=== PATIENT | female | born 1950 | race Caucasian/White ===

== ENCOUNTER 2020-04-07 08:46 | Outpatient (CLI) | payer MEDICARE, OTHER, SELFPAY ==
[2020-04-07 12:07] LABS: Basophils # 0.1 10^3/uL (0.0-0.1); Basophils % 0.4 %; Eosinophils # 0.2 10^3/uL (0.0-0.8); Eosinophils % 1.7 %; Hematocrit 36.9 % (37.0-47.0); Hemoglobin 11.3 g/dL (11.5-15.3); Lymphocytes % 6.9 %; Mean Corpuscular HGB Conc 30.6 g/dL (30.0-36.0); Mean Corpuscular Volume 94.9 fL (81-99); Mean Platelet Volume 11.2 fL (7.4-10.4); Monocytes # 0.7 10^3/uL (0.2-0.9); Monocytes % 4.9 %; Neutrophils # 11.81 10^3/uL (1.8-7.7); Neutrophils % 85.4 %; Nucleated Red Blood Cells % 0 %; Platelet Count 239 10^3/cmm (130-400); Red Blood Count 3.89 10^6/uL (4.1-5.3); Red Cell Distribution Width 14.8 % (12.1-15.1); White Blood Count 13.8 10^3/uL (4.0-10.0)
[2020-04-07 12:39] LABS: 25 Hydroxy Vitamin D 85 ng/mL (30-100); Alanine Aminotransferase 17 U/L (0-33); Albumin Level 3.9 g/dL (3.5-5.2); Alkaline Phosphatase 105 IU/L (35-105); Anion Gap 13.1 (5-19); Aspartate Amino Transferase 19 U/L (0-32); Blood Urea Nitrogen 28 mg/dL (8-23); C Reactive Protein 10.1 mg/L (0.0-4.9); Calcium 9.1 mg/dL (8.5-10.5); Carbon Dioxide 34 mmol/L (22-29); Chloride 97 mmol/L (98-107); Globulin 2.5 g/dL (1.3-4.6); Glomerular Filtration Rate 55.1 mL/min (90-130); Glucose 101 mg/dL (65-115); Osmolality Calculated 296 mOsm/kg (285-295); Potassium 4.1 mmol/L (3.5-5.1); Sodium 140 mmol/L (136-145); Thyroid Stimulating Hormone 1.76 uIU/mL (0.27-4.20); Total Bilirubin 0.4 mg/dL (0.15-1.2); Total Protein 6.4 g/dL (6.6-8.7); Uric Acid 11.5 mg/dL (2.4-5.7)
[2020-04-07 13:11] LABS: Cancer Antigen 19 9 24.53 U/mL (0-35)
[2020-04-07 13:29] LABS: Carcinoembryonic Antigen 4.8 ng/mL (0.0-4.7)
[2020-04-07 13:41] LABS: Immunoglobulin IGA 408 mg/dL (70-400); Immunoglobulin IGG 524 mg/dL (700-1600); Immunoglobulin IGM 74 mg/dL (40-230)
--- NOTE | 2020-04-07 16:38 | ONC CON_ITS ---
Dr. Mortensen New Patient Note Patient: Nanda Roe Unit #: [id number]: 1950 Dicatated By: Iker Mortensen M.D.Date of Visit: Apr 07, 2020 Onc MED New Patient/Consult Referring Physician: Judy Riley Chief Complaint: Cystic pancreatic lesions. 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 She has multiple medical illnesses including hypertension, dyslipidemia, coronary artery disease, systemic lupus erythematosus, a history of sarcoidosis, and interstitial lung disease. 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 She also has osteoporosis with vertebral compression fractures and she has degenerative arthritis. She moved to this area from [place] in January 2020. She had previously been followed for mild, chronic leukocytosis and mild anemia. The leukocytosis was presumed reactive. During the follow-up of her interstitial lung disease, she also had been noted on CT scan to have cystic lesions in the pancreas. Her CT abdomen/pelvis from July 2017 reported multiple pancreatic simple cysts, numbering at least 10, which had increased in size compared to her previous CT from March 2015. The largest measured 1.4 cm. MRI of the abdomen on 05/13/2018 showed numerous cysts throughout the pancreas, some containing thin septations and many of which appear to communicate with a dilated branch pancreatic duct. The largest were in the pancreatic tail measuring 2.2 x 2.0 cm, 1.8 x 1.7 cm, and 2.1 x 1.7 cm. Overall the appearance was consistent with extensive sidebranch intraductal papillary mucinous tumor. These had shown mild enlargement compared to the July 2017 CT. She was seen by frameman and she was recommended to have ERCP, but she was deemed to be medically unfit for the procedure. Her repeat MRI of the abdomen on 10/28/2019 reported nonsignificant changes in the cystic pancreatic lesions. The largest lesion at that point measured 3.2 x 2.1 cm and it was noted to have the appearance of a benign serous cystadenoma. She had a hematology/oncology follow-up visit on 11/01/2019. In addition to the cystic pancreatic lesions and the chronic leukocytosis, she was being followed for possible M spike reported on protein electrophoresis in January 2019. Her evaluation was unrevealing, and she was recommended to continue yearly follow-up for the pancreatic lesions. She has limited activity, in part due to her back issues and also to degenerative disease in her right hip. She is able to do some light work at home. Her ECOG score is 1. She has good appetite. She has gained weight. She does not have fever, night sweats, or hot flashes. Her breathing has been pretty good on oxygen. She does use BiPAP at night. She does not complain of cough. She does have some chest pain, which she feels is musculoskeletal in origin. She has no GI or complaints. She has fairly generalized joint pain, but particularly in her hands and in her right hip. She does not complain of headache or dizziness. She sometimes has numbness/tingling in her hands. Past Medical History: Ms. Roe's medical history consists of anemia, chronic leukocytosis, coronary artery disease (Treated), degenerative arthritis, diastolic dysfunction (Treated), dyslipidemia, hypertension, hypoxia (Treated), interstitial lung disease, obstructive sleep apnea, osteoporosis (Treated), sarcoidosis (Treated), shrinking lung syndrome, and systemic lupus erythematosus in 2000 (Treated). Past Surgical History: Ms. Roe's surgical/procedural history consists of bilateral cataract excisions with lens implants, coronary angioplasty/stent placement in 2013 and in October 2018, left total hip arthroplasty, shunt procedure on the left eye in 2015, cholecystectomy in 2014, hysterectomy with unilateral oophorectomy in 1987, and tonsillectomy in 1969. Medications: Aspirin 81 (81 mg) Tablet, chewable Oral daily, Brilinta (90 mg) Tablet Oral daily, Cholecalciferol 1 (29486 Units) Tablet Oral, Colchicine (0.6 mg) Capsule Oral daily, Dorzolamide HCl 1 (2 %) Solution Ophthalmic daily, Furosemide (20 mg) Tablet Oral b.i.d., Klor-Con (20 meq) Pack Oral daily, Metoprolol Tartrate (12.5 mg) Tablet Oral b.i.d., predniSONE (7.5 mg) Tablet Oral daily, Repatha 1 (140 mg/mL) Subcutaneous q 2 weeks Allergies: amLODIPine-Atorvastatin, Avalide, azaTHIOprine, Bystolic, Ciprofloxacin HCl, Clindamycin HCl, cloNIDine HCl, Clopidogrel Bisulfate, Diovan, Iodine and Iodine containing products, Lisinopril, Methotrexate, oxyCODONE HCl, Penicillin V Potassium, Penicillins, Plavix, Quinolones, and Sulfa Antibiotics. Social History: Ms. Roe is and she is retired. She smoked up to 1 pack of cigarettes daily for less than 20 years. She quit smoking at age 36. She does not drink alcohol. Family History: Father with heart disease at age 88. Mother of stroke at age 81. 1 sister also with heart disease. Two other sisters are in good health. Review Of Symptoms: Constitutional - She has generally been feeling very good. Her energy is good. She is able to do light house work. She has activity restrictions due to significant right sided hip pain. She uses a wheelchair. Her appetite is good. She has gained weight. No fever, night sweats, or hot flashes. ECOG score is 1, Eyes - No change in vision, ENMT - No hearing loss or tinnitus. She has a seasonal allergies. No mouth sores. No sore throat or difficulty swallowing, Hematologic/Lymphatic - She has easy bruising, Respiratory - She gets shortness of breath with activity. She uses a BIPAP at night and wears oxygen via nasal cannula during the day. No cough. No pleuritic pain or hemoptysis, Cardiovascular - No angina pain. No palpitations, Gastrointestinal - No nausea or vomiting. No heartburn or acid reflux. No diarrhea or constipation. No blood in the stool or black stools, Genitourinary (F) - No dysuria or hematuria. No urinary frequency. No urgency or incontinence, Musculoskeletal - She has significant osteoporosis, Integumentary - No skin eruption, Neurologic - No headache or dizziness. She has occasional numbness and tingling in her hands. No other focal neurologic symptoms, Psychiatric - No anxiety or depression. No insomnia. Vital Signs: Performed on Apr 07, 2020 10:14: 2, 4, 0.00 (LOW), sq.m, 100 %, 70 /min, 20 /min, 130/70 mm(hg), 98 F (LOW), and 145.4 lbs (HIGH). Physical Examination: Constitutional - She appears chronically ill, Eyes - Sclerae nonicteric. Conjunctivae clear, ENMT - No lesions noted in the oral cavity, Neck - No mass or thyromegaly, Hematologic/Lymphatic - No cervical, clavicular, or axillary adenopathy, Respiratory - Lungs are clear with diminished air movement bilaterally, Cardiovascular - Heart rhythm is regular. There is no murmur, gallop, or rub noted, Abdomen - Soft and non-tender. Liver and spleen are not enlarged. There is no abdominal mass or ascites noted and there is no inguinal adenopathy, Back/Spine - No spine or CVA tenderness noted, Extremities - Mild edema. Dorsalis pedis pulses are palpable bilaterally. There are changes in both hands consistent with inflammatory type arthritis, including ulnar deviation, Integumentary - No rashes. No suspicious skin lesions noted, Neurologic - No focal neurologic deficits noted. Problem List: 1. Patient with multiple cystic lesions in the pancreas. By MRI these are suspected intraductal papillary mucinous neoplasms. These have shown gradual enlargement over a period of at least several years. She does not appear to be symptomatic with it. 2. She had reported M spike on protein electrophoresis in January 2019. Her follow-up evaluation thus far has been unrevealing. 3. Mild, chronic leukocytosis, presumed reactive. 4. Mild anemia, most likely chronic disease type. 5. Hypertension. 6. Dyslipidemia. 7. Coronary artery disease with previous angioplasty/stent placement. 8. Systemic lupus erythematosus. 9. History of sarcoidosis. 10. Interstitial lung disease, oxygen dependent. 11. She has reported shrinking lung syndrome. 12. Obstructive sleep apnea. 13. Osteoporosis with vertebral compression fractures, most likely due to chronic steroid therapy. 14. Degenerative arthritis. Problems Addressed with this Encounter and Plan: 1. Patient with multiple cystic lesions in the pancreas. By MRI these are suspected intraductal papillary mucinous neoplasms. These have shown gradual enlargement over a period of at least several years. She does not appear to be symptomatic with it. She has been monitored with CEA and CA 19-9 levels, and those will be repeated. She will continue yearly follow-up imaging. She will be due for MRI again in October. 2. She had reported M spike on protein electrophoresis in January 2019. Her follow-up evaluation thus far has been unrevealing. I will repeat her laboratory studies today to include CBC, comprehensive metabolic profile, serum protein electrophoresis, quantitative immunoglobulin levels, and serum free light chain assay. She will have further evaluation only as indicated. 3. Mild, chronic leukocytosis, which is presumed reactive and mild anemia, which is most likely a chronic disease type anemia. These can be followed expectantly. She will have further evaluation only as indicated. 4. She has systemic lupus erythematosus and she has findings consistent with inflammatory type arthritis. I will recheck sed rate, CRP, RA titer, and IVÁN profile. I also will check her uric acid level. She is scheduled to see one of the rheumatologists sometime within the next several weeks. 5. Osteoporosis with vertebral compression fractures. In the past she had been on treatment with a bisphosphonate. She is currently just taking vitamin D for it, but she has been gradually tapering her prednisone. She will be scheduled for a follow-up DEXA scan, which is overdue now. She will have further evaluation as indicated. Signed By: Iker Mortensen M.D. <<Signature on File>>
[2020-04-08 06:18] LABS: PROTEIN, TOTAL 5.9 g/dL (6.1-8.1)
[2020-04-10 12:13] LABS: KAPPA LIGHT CHAIN, FREE, SERUM 24.5 mg/L (3.3-19.4); KAPPA/LAMBDA LIGHT CHAINS FREE 1.17 (0.26-1.65)
[2020-04-10 12:42] LABS: COMPLEMENT COMPONENT C3C 124 mg/dL (83-193); COMPLEMENT COMPONENT C4C 13 mg/dL (15-57)
[2020-04-10 14:47] LABS: COMPLEMENT, TOTAL (CH50) >60 U/mL (31-60)
[2020-04-10 15:48] LABS: ALBUMIN 3.3 g/dL (3.8-4.8); ALPHA 1 GLOBULIN 0.4 g/dL (0.2-0.3); ALPHA 2 GLOBULIN 0.8 g/dL (0.5-0.9); BETA 1 GLOBULIN 0.5 g/dL (0.4-0.6); BETA 2 GLOBULIN 0.4 g/dL (0.2-0.5); GAMMA GLOBULIN 0.6 g/dL (0.8-1.7)
[2020-04-11 13:43] LABS: ANA SCREEN, IFA NEGATIVE (NEGATIVE)
[2020-04-11 14:17] LABS: CENTROMERE B ANTIBODY <1.0 NEG AI (<1.0 NEG); JO-1 ANTIBODY <1.0 NEG AI (<1.0 NEG); RNP ANTIBODY <1.0 NEG AI (<1.0 NEG); SCL-70 ANTIBODY <1.0 NEG AI (<1.0 NEG); SJOGREN'S ANTIBODY (SS-A) <1.0 NEG AI (<1.0 NEG); SM ANTIBODY <1.0 NEG AI (<1.0 NEG); SS-B <1.0 NEG AI (<1.0 NEG)
[2020-04-12 14:57] LABS: THYROID PEROXIDASE ANTIBODIES <1 IU/mL (<9)
[2020-04-16 01:37] LABS: DNA AB (DS) CRITHIDIA,IFA NEGATIVE (NEGATIVE)
== END 2020-04-07 08:47 | disposition home or self-care (01) ==
LOC: ONCMED 08:50
PROVIDERS: Visit Provider Internal Medicine Medical Oncology
DX: D37.8 Neoplasm of uncertain behavior of other specified digestive organs (principal); D47.2 Monoclonal gammopathy; M32.9 Systemic lupus erythematosus, unspecified; D72.829 Elevated white blood cell count, unspecified; D64.9 Anemia, unspecified; M80.88XA Other osteoporosis with current pathological fracture, vertebra(e), initial encounter for fracture; M25.50 Pain in unspecified joint; R53.83 Other fatigue; Z79.52 Long term (current) use of systemic steroids
CPT/HCPCS: 36415; 80053; 82306; 82378; 82784; 83883; 84155; 84165; 84443; 84550; 85025; 86140; 86160; 86162; 86235; 86255; 86301; 86376; 86431; 99205

== ENCOUNTER → 2020-04-11 09:29 | Outpatient (BNVA) | payer MEDICARE, OTHER, SELFPAY | PROVIDERS: PCP Internal Medicine; Visit Provider Internal Medicine | DX: M32.9 Systemic lupus erythematosus, unspecified (principal); D86.9 Sarcoidosis, unspecified; Z11.1 Encounter for screening for respiratory tuberculosis; Z11.59 Encounter for screening for other viral diseases; Z79.52 Long term (current) use of systemic steroids; J98.4 Other disorders of lung; M25.50 Pain in unspecified joint; H54.7 Unspecified visual loss; I25.10 Atherosclerotic heart disease of native coronary artery without angina pectoris; M81.0 Age-related osteoporosis without current pathological fracture; R53.1 Weakness; Z99.81 Dependence on supplemental oxygen; Z87.891 Personal history of nicotine dependence | CPT/HCPCS: 99204 ==

== ENCOUNTER 2020-04-21 14:27 | Outpatient (CLI) | payer MEDICARE, OTHER, SELFPAY ==
--- NOTE | 2020-04-21 14:44 | XR_ITS ---
WS: [id number] SCREENING DEXA SCAN [place] CLINICAL INFORMATION: OSTEOPOROSIS COMPARISON: None. FINDINGS: The L1-L4 bone mineral density measures 1.164 g/cm2. This corresponds to a T score score of -0.1 and Z score of 1.5. Left forearm bone mineral density 0.31 with T score of -3.5 and Z score of -1.8 XR/XR DEXA axial skeleton* [id number] IMPRESSION: Osteoporosis in the left forearm. Normal bone mineralization in the lumbar spin e.
== END 2020-04-21 14:28 | disposition home or self-care (01) ==
LOC: RADWPI 14:28
PROVIDERS: PCP Internal Medicine; Visit Provider Internal Medicine Medical Oncology
DX: M81.0 Age-related osteoporosis without current pathological fracture (principal); Z79.899 Other long term (current) drug therapy
CPT/HCPCS: 77080; 87635

== ENCOUNTER 2020-04-26 09:10 | Outpatient (CLI) | payer MEDICARE, OTHER, SELFPAY ==
--- NOTE | 2020-04-26 10:51 | PFTS_ITS ---
Date of Study:04/26/20 Date of Dictation: MECHANICS: Forced vital capacity (FVC) is reduced. Forced expiratory volume in one second (FEV1) is reduced. FEV1/FVC is normal. FLOW VOLUME LOOP: Narrow. LUNG VOLUMES: Not measured DIFFUSING CAPACITY FOR CARBON MONOXIDE: Normal INTERPRETATION: The prebronchodilator spirometry is consistent with severe restriction. Lung volumes are not measured. Gas exchange (DLCO) is normal. The identification of severe restrictive ventilatory defect in the setting of normal DLCO could be suggestive of neuromuscular weakness. MTDD
== END 2020-04-26 09:11 | disposition home or self-care (01) ==
LOC: RT 09:14
PROVIDERS: PCP Internal Medicine; Visit Provider Internal Medicine Pulmonary Disease
DX: J98.4 Other disorders of lung (principal)
CPT/HCPCS: 94010; 94729

== ENCOUNTER 2020-05-25 15:00 | Outpatient (CLI) | payer MEDICARE, OTHER, SELFPAY ==
--- NOTE | 2020-05-25 15:00 | USCV_ITS ---
Nanda Roe Age: 69 Gender: F : 1950 Exam Date: 05/25/2020 15:27 Ordering Phys: Luly Hoffman MD ([email or web address]) Technologist: Valentin Castillo [place] [facility] [place]: CONGESTIVE HEART FAILURE BP: 125 / 70 HR: 65 Rhythm: Sinus Technical Quality: Adequate MEASUREMENTS (Male / Female) Normal Values 2D ECHO LV Diastolic Diameter PLAX 3.3 cm 4.2 - 5.9 / 3.9 - 5.3 cm LV Systolic Diameter PLAX 2.3 cm IVS Diastolic Thickness 1.1 cm 0.6 - 1.0 / 0.6 - 0.9 cm IVS Systolic Thickness 1.5 cm LVPW Diastolic Thickness 1.2 cm 0.6 - 1.0 / 0.6 - 0.9 cm LVPW Systolic Thickness 1.4 cm LVOT Diameter 2.1 cm LV Ejection Fraction 2D Teich 59.3 % LV Ejection Fraction MOD 2C 57.2 % LV Ejection Fraction 2C AL 57.8 % LA Diameter 4.4 cm LA Width 4.3 cm LA Height 5.1 cm RA Width 3.2 cm RA Height 3.4 cm M-MODE LV Diastolic Diameter MM 6.6 cm 4.2 - 5.9 / 3.9 - 5.3 cm LV Systolic Diameter MM 4.1 cm LV Ejection Fraction MM Teich 67.1 % IVS Diastolic Thickness MM 0.9 cm 0.6 - 1.0 / 0.6 - 0.9 cm IVS Systolic Thickness MM 1.6 cm LVPW Diastolic Thickness MM 1.3 cm 0.6 - 1.0 / 0.6 - 0.9 cm LVPW Systolic Thickness MM 2.2 cm RV Diastolic Diameter MM 1.1 cm Aortic Annulus Diameter 3.2 cm LA Ao Ratio MM 1.5 MV E Point Septal Separation 1.2 cm DOPPLER AV Peak Velocity 160.3 cm/s LVOT Peak Velocity 129.0 cm/s AV Area Cont Eq vti 2.9 cm squared AV Area Cont Eq pk 2.7 cm squared MV Area PHT 2.7 cm squared Mitral E to A Ratio 0.6 MV E' Velocity 51.4 cm/s Mitral E to MV E' Ratio 16.8 Mitral E to LV E' Lateral Ratio 26.5 Mitral E to LV E' Septal Ratio 12.3 TR Peak Velocity 234.3 cm/s TR Peak Gradient 22.0 mmHg TV Peak E Velocity 84.0 cm/s Right Atrial Pressure 3.0 mmHg Pulmonary Artery Systolic Pressu 25.0 mmHg PV Peak Velocity 115.0 cm/s FINDINGS Left Ventricle Normal left ventricular cavity size. Normal left ventricular systolic function. Left ventricular ejection fraction is estimated at 65 %. No regional wall motion abnormalities. Grade I diastolic dysfunction (abnormal relaxation filling pattern), normal to mildly elevated filling pressures. Right Ventricle Normal right ventricular size and systolic function. Right Atrium Normal right atrial size. Left Atrium Moderately increased left atrial size. Mitral Valve Moderate mitral annular calcification. No mitral valve stenosis. No mitral valve regurgitation. Aortic Valve Aortic valve not well visualized. No aortic valve stenosis. No aortic valve regurgitation. Tricuspid Valve Tricuspid valve not well visualized. Trace tricuspid valve regurgitation. Pulmonic Valve Pulmonic valve not well visualized. Pericardium No pericardial effusion. Echo free space anterior to the right ventricle likely represents a fat pad. Aorta Aorta not well visualized. CONCLUSIONS 1. Normal left ventricular cavity size and systolic function. Left ventricular ejection fraction is estimated at 65 %. No regional wall motion abnormalities. Grade I diastolic dysfunction (abnormal relaxation filling pattern), normal to mildly elevated filling pressures. 2. Normal right ventricular size and systolic function. 3. Moderately increased left atrial size. 4. No significant valvular abnormality. 5. No prior similar studies to compare. Luly Hoffman MD (Electronically Signed) Final Date: 28 May 2020 13:18 S
== END 2020-05-25 15:01 | disposition home or self-care (01) ==
PROVIDERS: PCP Internal Medicine; Visit Provider Internal Medicine Cardiovascular Disease
DX: I50.32 Chronic diastolic (congestive) heart failure (principal); I51.7 Cardiomegaly
CPT/HCPCS: 93306

== ENCOUNTER → 2020-06-06 10:47 | Outpatient (BNVA) | payer MEDICARE, OTHER, SELFPAY | PROVIDERS: PCP Internal Medicine; Visit Provider Internal Medicine | DX: M32.9 Systemic lupus erythematosus, unspecified (principal); J98.4 Other disorders of lung; M81.0 Age-related osteoporosis without current pathological fracture; I25.119 Atherosclerotic heart disease of native coronary artery with unspecified angina pectoris; E79.0 Hyperuricemia without signs of inflammatory arthritis and tophaceous disease; Z79.52 Long term (current) use of systemic steroids; M25.50 Pain in unspecified joint; H54.62 Unqualified visual loss, left eye, normal vision right eye; Z87.891 Personal history of nicotine dependence | CPT/HCPCS: 99214 ==

== ENCOUNTER 2020-07-06 12:03 | Outpatient (RCR) | payer MEDICARE, OTHER, SELFPAY | END 2020-07-17 23:59 | disposition home or self-care (01) | LOC: PULRHB 12:03 | PROVIDERS: PCP Internal Medicine; Visit Provider Internal Medicine | DX: J98.4 Other disorders of lung (principal) | CPT/HCPCS: 94618 ==

== ENCOUNTER 2020-07-18 06:00 | Outpatient (RCR) | payer MEDICARE, OTHER, SELFPAY | END 2020-08-16 23:59 | disposition home or self-care (01) | LOC: PULRHB 06:00 | PROVIDERS: PCP Internal Medicine; Visit Provider Internal Medicine | DX: J98.4 Other disorders of lung (principal) | CPT/HCPCS: G0237; G0238 ==

== ENCOUNTER → 2020-08-16 08:40 | Outpatient (BNVA) | payer MEDICARE, OTHER, SELFPAY | PROVIDERS: PCP Internal Medicine; Visit Provider Internal Medicine Cardiovascular Disease | DX: I25.119 Atherosclerotic heart disease of native coronary artery with unspecified angina pectoris (principal); I50.32 Chronic diastolic (congestive) heart failure; I10 Essential (primary) hypertension; I25.10 Atherosclerotic heart disease of native coronary artery without angina pectoris | CPT/HCPCS: 80053; 83735; 83880 ==

== ENCOUNTER 2020-09-25 09:14 | Outpatient (CLI) | payer MEDICARE, OTHER, SELFPAY ==
[2020-09-25 10:32] LABS: Basophils # 0.1 10^3/uL (0.0-0.1); Basophils % 0.5 %; Eosinophils # 0.4 10^3/uL (0.0-0.8); Hemoglobin 11.5 g/dL (11.5-15.3); Lymphocytes # 1.6 10^3/uL (0.8-4.8); Lymphocytes % 11.7 %; Mean Corpuscular HGB Conc 31.1 g/dL (30.0-36.0); Mean Corpuscular Hemoglobin 29.5 pg (28.0-34.0); Mean Corpuscular Volume 94.9 fL (81-99); Mean Platelet Volume 10.2 fL (7.4-10.4); Monocytes # 0.8 10^3/uL (0.2-0.9); Monocytes % 5.6 %; Neutrophils # 10.47 10^3/uL (1.8-7.7); Neutrophils % 77.8 %; Nucleated Red Blood Cells % 0 %; Platelet Count 260 10^3/cmm (130-400); Red Cell Distribution Width 15.1 % (12.1-15.1); White Blood Count 13.5 10^3/uL (4.0-10.0)
[2020-09-25 11:16] LABS: Carcinoembryonic Antigen 3.4 ng/mL (0.0-4.7)
[2020-09-25 11:27] LABS: Alanine Aminotransferase 9 U/L (0-33); Albumin Level 3.6 g/dL (3.5-5.2); Alkaline Phosphatase 85 IU/L (35-105); Anion Gap 14.6 (5-19); Aspartate Amino Transferase 12 U/L (0-32); Blood Urea Nitrogen 27 mg/dL (8-23); C Reactive Protein 18.1 mg/L (0.0-4.9); Calcium 8.7 mg/dL (8.5-10.5); Carbon Dioxide 30 mmol/L (22-29); Chloride 100 mmol/L (98-107); Globulin 2.6 g/dL (1.3-4.6); Glomerular Filtration Rate 71.1 mL/min (90-130); Glucose 92 mg/dL (65-115); Osmolality Calculated 297 mOsm/kg (285-295); Potassium 3.6 mmol/L (3.5-5.1); Sodium 141 mmol/L (136-145); Total Bilirubin 0.4 mg/dL (0.15-1.2); Total Protein 6.2 g/dL (6.6-8.7)
[2020-09-25 11:58] LABS: Erythrocyte Sedimentation Rate 46 mm/hr (0-15)
[2020-09-25 12:37] LABS: Cancer Antigen 19 9 21.44 U/mL (0-35)
== END 2020-09-25 09:15 | disposition home or self-care (01) ==
PROVIDERS: PCP Internal Medicine; Visit Provider Internal Medicine Medical Oncology
DX: D49.0 Neoplasm of unspecified behavior of digestive system (principal); M32.9 Systemic lupus erythematosus, unspecified
CPT/HCPCS: 80053; 82378; 85025; 85651; 86140; 86301

== ENCOUNTER → 2020-09-29 11:52 | Outpatient (BNVA) | payer MEDICARE, OTHER, SELFPAY | PROVIDERS: Visit Provider Family Medicine | DX: L98.9 Disorder of the skin and subcutaneous tissue, unspecified (principal); E79.0 Hyperuricemia without signs of inflammatory arthritis and tophaceous disease | CPT/HCPCS: 84550 ==

== ENCOUNTER 2020-10-11 14:03 | Outpatient (CLI) | payer MEDICARE, OTHER, SELFPAY ==
--- NOTE | 2020-10-11 19:36 | ONC FU_ITS ---
Dr. Mortensen Patient Follow-Up Note Patient: Nanda Roe Unit #: [id number]: 1950 Dicatated By: Iker Mortensen M.D.Date of Visit:Oct 11, 2020 Onc Med Follow-up/Prog Note Chief Complaint: Cystic pancreatic lesions. 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 She has multiple medical illnesses including hypertension, dyslipidemia, coronary artery disease, systemic lupus erythematosus, a history of sarcoidosis, and interstitial lung disease. 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 She also has osteoporosis with vertebral compression fractures and she has degenerative arthritis. She moved to this area from [place] in January 2020. She had previously been followed for mild, chronic leukocytosis and mild anemia. The leukocytosis was presumed reactive. During the follow-up of her interstitial lung disease, she also had been noted on CT scan to have cystic lesions in the pancreas. Her CT abdomen/pelvis from July 2017 reported multiple pancreatic simple cysts, numbering at least 10, which had increased in size compared to her previous CT from March 2015. The largest measured 1.4 cm. MRI of the abdomen on 05/13/2018 showed numerous cysts throughout the pancreas, some containing thin septations and many of which appear to communicate with a dilated branch pancreatic duct. The largest were in the pancreatic tail measuring 2.2 x 2.0 cm, 1.8 x 1.7 cm, and 2.1 x 1.7 cm. Overall the appearance was consistent with extensive sidebranch intraductal papillary mucinous tumor. These had shown mild enlargement compared to the July 2017 CT. She was seen by straight cutter machine and she was recommended to have ERCP, but she was deemed to be medically unfit for the procedure. Her repeat MRI of the abdomen on 10/28/2019 reported nonsignificant changes in the cystic pancreatic lesions. The largest lesion at that point measured 3.2 x 2.1 cm and it was noted to have the appearance of a benign serous cystadenoma. She had a hematology/oncology follow-up visit on 11/01/2019. In addition to the cystic pancreatic lesions and the chronic leukocytosis, she was being followed for possible M spike reported on protein electrophoresis in January 2019. Her evaluation was unrevealing, and she was recommended to continue yearly follow-up for the pancreatic lesions. She is seen for a follow-up visit. She has not yet had her surveillance imaging, as they did not feel that they could get an adequate MRI study due to her breathing and motion artifact. Her CT was then deferred, as it was not able to be administered with IV contrast. However, she has been feeling somewhat better generally. She has been having less joint pain and she has had some improvement in her energy and activity tolerance. She is able to do some light work at home. Her ECOG score is 1. She has good appetite. She does not have fever or night sweats. She has some allergy related sinus drainage and she sometimes has cough with it. Her breathing has generally been better since they moved to a lower altitude, but she is still oxygen dependent. She does not complain of chest pain. Her stomach is sometimes queasy. She has no other GI or complaints. She does not complain of headache or dizziness, and she has no focal neurologic symptoms. Medications: Aspirin 81 (81 mg) Tablet, chewable Oral daily, Brilinta (90 mg) Tablet Oral daily, Cholecalciferol 1 (87717 Units) Tablet Oral, Colchicine (0.6 mg) Capsule Oral daily, Dorzolamide HCl 1 (2 %) Solution Ophthalmic daily, Furosemide (20 mg) Tablet Oral b.i.d., Klor-Con (20 meq) Pack Oral daily, Metoprolol Tartrate (12.5 mg) Tablet Oral b.i.d., predniSONE (7 mg) Tablet Oral daily, Repatha 1 (140 mg/mL) Subcutaneous q 2 weeks Allergies: amLODIPine-Atorvastatin, Avalide, azaTHIOprine, Bystolic, Ciprofloxacin HCl, Clindamycin HCl, cloNIDine HCl, Clopidogrel Bisulfate, Diovan, Iodine and Iodine containing products, Lisinopril, Methotrexate, oxyCODONE HCl, Penicillin V Potassium, Penicillins, Plavix, Quinolones, and Sulfa Antibiotics. Vital Signs: Performed on Oct 11, 2020 14:33 Weight - 142.2 lbs (LOW) BSA - 0.00 sq.m BMI - 0.00 Temperature - 99.1 F (HIGH) Pulse - 73 /min Respiration - 18 /min BP - 148/77 mm(hg) (HIGH) O2 Sat - 98 % Pain - 2 Fatigue - 4 Physical Examination: Constitutional - She appears chronically ill, Eyes - Sclerae nonicteric. Conjunctivae clear, ENMT - No lesions noted in the oral cavity, Hematologic/Lymphatic - No cervical, clavicular, or axillary adenopathy, Respiratory - Lungs are clear with diminished air movement bilaterally, Cardiovascular - Heart rhythm is regular. There is no murmur, gallop, or rub noted, Abdomen - Soft and non-tender. Liver and spleen are not enlarged. There is no abdominal mass or ascites noted and there is no inguinal adenopathy, Extremities - No edema. There are changes in both hands consistent with inflammatory type arthritis, including ulnar deviation. She has chronic purpura on the arms, Neurologic - No focal neurologic deficits noted. Lab/Imaging: Test performed on Sep 25, 2020 10:20 Sodium 141 mmol/L Potassium 3.6 mmol/L Chloride 100 mmol/L CO2 30 mmol/L Anion Gap 14.6 BUN 27 mg/dL Creatinine 0.8 mg/dL eGFR 71.1 mL/min Glucose 92 mg/dL Osmolality - Calculated 297 mOsm/kg Calcium 8.7 mg/dL Protein, Total 6.2 g/dL Albumin 3.6 g/dL Globulin 2.6 g/dL Bilirubin, Total 0.4 mg/dL ALT (SGPT) 9 U/L AST (SGOT) 12 U/L Alkaline Phosphatase 85 IU/L ESR (Sed Rate) 46 mm/hr WBC 13.5 10 3/uL RBC 3.90 10 6/uL HGB 11.5 g/dL HCT 37.0 % MCV 94.9 fL MCH 29.5 pg MCHC 31.1 g/dL RDW 15.1 % Platelet Count 260 10 3/cmm MPV 10.2 fL Neutrophils 10.47 10 3/uL Lymphocytes 1.6 10 3/uL Monocytes 0.8 10 3/uL Eosinophils 0.4 10 3/uL Basophils 0.1 10 3/uL Neutrophil % 77.8 % Lymphocyte % 11.7 % Monocyte % 5.6 % Eosinophil % 3.0 % Basophils % 0.5 % NRBC % 0 % CA 19-9 21.44 U/mL CEA 3.4 ng/mL Problem List: 1. Patient with multiple cystic lesions in the pancreas. By MRI these are suspected intraductal papillary mucinous neoplasms. These have shown gradual enlargement over a period of at least several years. She does not appear to be symptomatic with it. 2. She had reported M spike on protein electrophoresis in January 2019. Her follow-up evaluation thus far has been unrevealing. 3. Mild, chronic leukocytosis, presumed reactive. 4. Mild anemia, most likely chronic disease type. 5. Hypertension. 6. Dyslipidemia. 7. Coronary artery disease with previous angioplasty/stent placement. 8. Systemic lupus erythematosus. 9. History of sarcoidosis. 10. Interstitial lung disease, oxygen dependent. 11. She has reported shrinking lung syndrome. 12. Obstructive sleep apnea. 13. Osteoporosis with vertebral compression fractures, most likely due to chronic steroid therapy. 14. Degenerative arthritis. Problems Addressed with this Encounter and Plan: 1. Patient with multiple cystic lesions in the pancreas. By MRI these were suspected intraductal papillary mucinous neoplasms. These had shown gradual enlargement over a period of at least several years. She has not symptomatic with it. Since her visit in March 2020 there has been some improvement in her clinical status. She would be due now for surveillance imaging. MRI was not able to be completed, apparently due to motion artifact associated with her breathing. Her CT abdomen/pelvis was then deferred as she was not able to be given IV contrast. However, in reviewing her record, it does appear that a noncontrast CT will be sufficient for monitoring her disease, but I will verify that with the radiologist. Assuming her findings are stable, I will then plan to just continue with yearly surveillance. 2. Mild, chronic leukocytosis, which is presumed reactive and mild anemia, which is most likely a chronic disease type anemia. These are being followed expectantly. She will have further evaluation only as indicated. Signed By: Iker Mortensen M.D. <<Signature on File>>
== END 2020-10-11 14:04 | disposition home or self-care (01) ==
LOC: ONCMED 14:07
PROVIDERS: PCP Family Medicine; Visit Provider Internal Medicine Medical Oncology
DX: K86.2 Cyst of pancreas (principal); D72.828 Other elevated white blood cell count; Z79.899 Other long term (current) drug therapy
CPT/HCPCS: 99214

== ENCOUNTER → 2020-10-25 09:37 | Outpatient (BNVA) | payer MEDICARE, OTHER, SELFPAY | PROVIDERS: PCP Nurse Practitioner Family; Visit Provider Internal Medicine | DX: M32.9 Systemic lupus erythematosus, unspecified (principal); Z99.81 Dependence on supplemental oxygen; M81.0 Age-related osteoporosis without current pathological fracture; I25.119 Atherosclerotic heart disease of native coronary artery with unspecified angina pectoris; Z79.899 Other long term (current) drug therapy; Z79.52 Long term (current) use of systemic steroids; Z87.891 Personal history of nicotine dependence | CPT/HCPCS: 36415; 72040; 72072; 72100; 73030; 86160; 99214 ==

== ENCOUNTER 2020-10-25 11:15 | Outpatient (CLI) | payer MEDICARE, OTHER, SELFPAY ==
--- NOTE | 2020-10-25 11:29 | XR_ITS ---
WS: [id number] RIGHT SHOULDER: 2 VIEW(S) TECHNIQUE: Internal and external rotation. HISTORY: M32.9 - Systemic lupus erythematosus, unspecified COMPARISON: None available. AC joint and glenohumeral joint narrowing is mild to moderate. Osteopenia. No fractures. Pleural thickening and interstitial thickening throughout the visualized RIGHT lung. XR/XR shoulder RT min 2V* [id number] IMPRESSION: Osteopenia with mild/moderate narrowing of the glenohumeral joint and AC joint.
--- NOTE | 2020-10-25 11:29 | XR_ITS ---
WS: [id number] THORACIC SPINE TECHNIQUE: AP and lateral views are performed. HISTORY: M32.9 - Systemic lupus erythematosus, unspecified COMPARISON: None available. Extremely limited evaluation of the thoracic spine. Bones are severely osteopenic. Marked increase in thoracic kyphosis centered in the midthoracic spine and scoliosis. Multiple osteoporotic compression fractures are identified. The exact levels are difficult to determine as each vertebral body is very poorly visualized. Majority of the vertebral bodies demonstrate at least some form of compression. Atherosclerosis aorta. Prior cholecystectomy. XR/XR thoracic spine 3V* [id number] IMPRESSION: 1. Extremely limited evaluation of the thoracic spine due to severe osteopenia and kyphosis. 2. Numerous compression fractures of various heights. I suspect the majority o f the vertebral bodies demonstrate some form of compression fracture.
--- NOTE | 2020-10-25 11:29 | XR_ITS ---
WS: [id number] LUMBAR SPINE: 2 VIEWS TECHNIQUE: AP and lateral. HISTORY: M32.9 - Systemic lupus erythematosus, unspecified COMPARISON: None available. RIGHT rotoscoliosis of the lumbar spine. L4 anterolisthesis by 5 mm. Severe osteopenia. Compression fractures involving all the lumbar vertebral bodies. Most significant is a biconcave frac ture L1 by greater than 50%. No retropulsion. Partial fusion across the SI joints. Prior cholecystectomy. LEFT hip arthroplasty with medial migration of the prosthetic component. Exten sive atherosclerosis aorta. XR/XR lumbar spine 2-3V* [id number] IMPRESSION: 1. Severe osteopenia. 2. Impression fractures involving all lumbar vertebral bodies. Most significan t at L1. 3. L4 anterolisthesis by 5 mm.
--- NOTE | 2020-10-25 11:29 | XR_ITS ---
WS: [id number] LEFT SHOULDER: 2 VIEW(S) TECHNIQUE: Internal and external rotation. HISTORY: M32.9 - Systemic lupus erythematosus, unspecified COMPARISON: None available. Marked narrowing of the glenohumeral joint. Loss of the normal cortex at the joint line. Diffuse oste openia. Mild narrowing of the AC joint. Extensive atherosclerosis aorta. There is pleural thickening along the LEFT lateral chest. Rib detail is very poorly visualized and may be from healed fractures. XR/XR shoulder LT min 2V* [id number] IMPRESSION: 1. Marked degenerative changes at the glenohumeral joint. 2. Mild AC joint arthritis. 3. Very poor definition of the ribs in the LEFT thorax in part is due to osteo penia. There is adjacent pleural thickening. There may be healed rib fractures or destructive process involving the ribs. Correlate clinically with prior trau ma and rib fractures. Chest CT may be necessary to further evaluate the lung pr ocess.
--- NOTE | 2020-10-25 11:29 | XR_ITS ---
WS: [id number] LATERAL CERVICAL SPINE: 3 view. Lateral radiographs are performed in upright neutral, flexion and extension to the patient's toleranc e. HISTORY: M32.9 - Systemic lupus erythematosus, unspecified COMPARISON: None available. Limited evaluation of the cervical spine. Only the superior 4 vertebral bodies are imaged. Normal ali gnment. With flexion and extension is very little movement of the vertebral bodies. No fractures. XR/XR cervical spine fl/ex [id number] IMPRESSION: Normal alignment of the upper 4 cervical vertebral bodies. No instability but v osorio little movement with flexion and extension.
== END 2020-10-25 11:16 | disposition home or self-care (01) ==
PROVIDERS: PCP Nurse Practitioner Family; Visit Provider Internal Medicine
DX: M32.9 Systemic lupus erythematosus, unspecified (principal)
CPT/HCPCS: 72040; 72072; 72100; 73030; 86160

== ENCOUNTER 2021-01-04 12:48 | Outpatient (CLI) | payer MEDICARE, OTHER, SELFPAY ==
--- NOTE | 2021-01-04 13:00 | CT_ITS ---
WS: [id number] CT ABDOMEN WITHOUT CONTRAST HISTORY: PANCREATIC MUCINOUS NEOPLASM Contiguous single phase 5 mm axial imaging performed to the abdomen. Oral contrast has been provided. Coronal and sagittal reformats are submitted. All CT scans at [facility] use at least one of these dose optimization techniques: automated exposure control; mA and/or kV adjustment per patient size (includes targeted exams where dose is matched to clinical indication); or iterative reconstruct ion. CONTRAST: None DLP: 1040.38 mGycm COMPARISON: None available. Lower thorax: Motion artifact at the lung bases. Heart is moderately enlarged with heavy calcificatio n in the LEFT anterior descending coronary artery. No effusion. Liver: Normal. No intrahepatic dilatation. Gallbladder: Prior cholecystectomy. Pancreas: Evaluation of pancreas is limited without IV contrast. Pancreas is mildly atrophied and con tains multiple lobulated low-attenuation lesions beginning in the head of the pancreas and extending along the uncinate process to the tail. The largest collection of low attenuation nodules at the panc reatic tail. The largest lobulated cystic collection measures 4.1 x 2.1 cm. These low-attenuation les ions may be contiguous with the duct. Common bile duct is not dilated. Spleen: Normal size with granulomata. Adrenals: Normal. Right kidney: Mild atrophy with a calcification which is nonobstructing. Left kidney: Normal. Aorta: Heavy calcification within a small caliber aorta. GI tract: As visualized no abnormality. No adenopathy or free fluid. Abdominal wall: No hernia. Visualized osseous structures: Severe diffuse osteopenia. There are numerous biconcave compression fr actures within the lower thoracic and lumbar spines at all levels beginning at T7. Most severe compre ssion fractures involve T8, T9 and T10. CT/CT abdomen wo con [id number] IMPRESSION: 1. Numerous low-attenuation masses throughout the pancreas. Most significant d istribution and largest lesions are in the pancreatic tail. The largest measure s 4.1 x 2.1 cm. 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 No prior studies f or comparison to evaluate for any change. 2. No adenopathy or ascites. 3. Mild cardiomegaly. 4. Extensive concave osteoporotic compression fractures beginning at T7-L5.
== END 2021-01-04 12:49 | disposition home or self-care (01) ==
PROVIDERS: PCP Nurse Practitioner Family; Visit Provider Internal Medicine Medical Oncology
DX: C25.9 Malignant neoplasm of pancreas, unspecified (principal); I51.7 Cardiomegaly
CPT/HCPCS: 74150

== ENCOUNTER → 2021-03-15 09:36 | Outpatient (BNVA) | payer MEDICARE, OTHER, SELFPAY | PROVIDERS: PCP Nurse Practitioner Family; Visit Provider Internal Medicine | DX: M32.9 Systemic lupus erythematosus, unspecified (principal); L98.9 Disorder of the skin and subcutaneous tissue, unspecified; M81.0 Age-related osteoporosis without current pathological fracture; M54.9 Dorsalgia, unspecified; Z79.52 Long term (current) use of systemic steroids; I10 Essential (primary) hypertension; Z87.891 Personal history of nicotine dependence | CPT/HCPCS: 99214 ==

== ENCOUNTER → 2021-04-10 15:30 | Outpatient (BNVA) | payer MEDICARE, OTHER, SELFPAY | PROVIDERS: PCP Family Medicine; Visit Provider Family Medicine | DX: I25.119 Atherosclerotic heart disease of native coronary artery with unspecified angina pectoris (principal); E78.5 Hyperlipidemia, unspecified | CPT/HCPCS: 80048; 80061 ==

== ENCOUNTER → 2021-04-19 11:14 | Outpatient (BNVA) | payer MEDICARE, OTHER, SELFPAY | PROVIDERS: PCP Family Medicine; Visit Provider Internal Medicine | DX: M32.9 Systemic lupus erythematosus, unspecified (principal); J98.4 Other disorders of lung; N17.9 Acute kidney failure, unspecified; M79.89 Other specified soft tissue disorders; Z79.52 Long term (current) use of systemic steroids; Z99.81 Dependence on supplemental oxygen; Z87.891 Personal history of nicotine dependence | CPT/HCPCS: 99214 ==

== ENCOUNTER → 2021-08-10 10:20 | Outpatient (BNVA) | payer MEDICARE, OTHER, SELFPAY | PROVIDERS: PCP Family Medicine; Visit Provider Internal Medicine | DX: J98.4 Other disorders of lung (principal); M32.9 Systemic lupus erythematosus, unspecified; E78.5 Hyperlipidemia, unspecified; E79.0 Hyperuricemia without signs of inflammatory arthritis and tophaceous disease; I25.10 Atherosclerotic heart disease of native coronary artery without angina pectoris; I50.30 Unspecified diastolic (congestive) heart failure; H54.7 Unspecified visual loss; Z79.899 Other long term (current) drug therapy | CPT/HCPCS: 80053; 81000; 85025; 85651; 86140; 86160 ==

== ENCOUNTER → 2021-08-14 11:20 | Outpatient (BNVA) | payer MEDICARE, OTHER, SELFPAY | PROVIDERS: PCP Family Medicine; Visit Provider Internal Medicine | DX: M32.9 Systemic lupus erythematosus, unspecified (principal); M10.9 Gout, unspecified; Z79.52 Long term (current) use of systemic steroids | CPT/HCPCS: 99214 ==

== ENCOUNTER 2021-11-09 16:14 | Outpatient (CLI) | payer MEDICARE, OTHER, SELFPAY ==
[2021-11-09 16:40] LABS: Basophils % 0.2 %; Eosinophils % 0.3 %; Hematocrit 39.8 % (37.0-47.0); Hemoglobin 12.6 g/dL (11.5-15.3); Lymphocytes # 1.3 10^3/uL (0.8-4.8); Lymphocytes % 9.7 %; Mean Corpuscular HGB Conc 31.7 g/dL (30.0-36.0); Mean Corpuscular Hemoglobin 29.9 pg (28.0-34.0); Mean Corpuscular Volume 94.5 fl (81-99); Monocytes # 0.9 10^3/uL (0.2-0.9); Monocytes % 6.4 %; Neutrophils # 11.03 10^3/uL (1.8-7.7); Neutrophils % 82.7 %; Nucleated Red Blood Cells % 0 %; Platelet Count 234 10^3/cmm (130-400); Red Blood Count 4.21 10^6/uL (4.1-5.3); Red Cell Distribution Width 14.2 % (12.1-15.1); White Blood Count 13.3 10^3/uL (4.0-10.0)
[2021-11-09 16:41] LABS: Add Urine Microscopic? NO; Charge for UA Resulting for Rev
[2021-11-09 16:42] LABS: Erythrocyte Sedimentation Rate 22 mm/hr (0-15)
[2021-11-09 16:54] LABS: Bilirubin Urine Neg (Negative); Blood Urine Neg (Negative); Glucose Urine UA Norm (Normal); Ketones Urine Negative (Negative); Leukocyte Esterase Urine Negative (Negative); Nitrate Urine Negative (Negative); Protein Urine Neg (Negative); Urine Appearance Clear (CLEAR); Urine Color Straw (Yellow); Urobilinogen Urine Neg (Negative); pH Urine 7 (5-7)
[2021-11-09 17:11] LABS: Alanine Aminotransferase 12 U/L (0-33); Albumin Level 4.1 g/dL (3.5-5.2); Alkaline Phosphatase 89 U/L (35-105); Anion Gap 13.5 (5-19); Aspartate Amino Transferase 15 U/L (0-32); Blood Urea Nitrogen 24 mg/dL (8-23); C Reactive Protein 7.7 mg/L (0.0-4.9); Calcium 8.7 mg/dL (8.5-10.5); Carbon Dioxide 30 mmol/L (22-29); Chloride 102 mmol/L (98-107); Globulin 2.4 g/dL (1.3-4.6); Glomerular Filtration Rate 70.9 mL/min (90-130); Glucose 111 mg/dL (65-115); Osmolality Calculated 297 mOsm/kg (285-295); Potassium 4.5 mmol/L (3.5-5.1); Sodium 141 mmol/L (136-145); Total Bilirubin 0.4 mg/dL (0.15-1.2); Total Protein 6.5 g/dL (6.6-8.7); Uric Acid 9.1 mg/dL (2.4-5.7)
[2021-11-09 17:25] LABS: 25 Hydroxy Vitamin D 54 ng/mL (30-100)
[2021-11-09 20:50] LABS: Complement C3 123 mg/dL (90-180)
== END 2021-11-09 16:15 | disposition home or self-care (01) ==
PROVIDERS: PCP Family Medicine; Visit Provider Internal Medicine
DX: M79.89 Other specified soft tissue disorders (principal); M81.0 Age-related osteoporosis without current pathological fracture
CPT/HCPCS: 36415; 80053; 81003; 82306; 84550; 85025; 85651; 86140; 86160

== ENCOUNTER → 2022-02-05 10:46 | Outpatient (BNVA) | payer MEDICARE, OTHER, SELFPAY | PROVIDERS: PCP Family Medicine; Visit Provider Internal Medicine Cardiovascular Disease | DX: I11.0 Hypertensive heart disease with heart failure (principal); I50.32 Chronic diastolic (congestive) heart failure; I25.119 Atherosclerotic heart disease of native coronary artery with unspecified angina pectoris; J98.4 Other disorders of lung; Z87.891 Personal history of nicotine dependence | CPT/HCPCS: 99214 ==

== ENCOUNTER → 2022-03-26 11:00 | Outpatient (BNVA) | payer MEDICARE, OTHER, SELFPAY | PROVIDERS: PCP Family Medicine; Visit Provider Internal Medicine | DX: M32.9 Systemic lupus erythematosus, unspecified (principal); M1A.9XX1 Chronic gout, unspecified, with tophus (tophi); Z79.52 Long term (current) use of systemic steroids | CPT/HCPCS: 99213 ==

== ENCOUNTER → 2022-05-24 09:32 | Outpatient (BNVA) | payer MEDICARE, OTHER, SELFPAY | PROVIDERS: PCP Family Medicine; Visit Provider Internal Medicine Pulmonary Disease | DX: J98.4 Other disorders of lung (principal); R06.02 Shortness of breath; M32.9 Systemic lupus erythematosus, unspecified; Z95.5 Presence of coronary angioplasty implant and graft; Z90.49 Acquired absence of other specified parts of digestive tract; I25.119 Atherosclerotic heart disease of native coronary artery with unspecified angina pectoris; Z79.52 Long term (current) use of systemic steroids; I50.32 Chronic diastolic (congestive) heart failure; Z87.891 Personal history of nicotine dependence; Z99.81 Dependence on supplemental oxygen | CPT/HCPCS: 99214 ==

== ENCOUNTER 2022-06-13 11:08 | Outpatient (CLI) | payer MEDICARE, OTHER, SELFPAY | END 2022-06-13 11:09 | disposition home or self-care (01) | LOC: RT 11:12 | PROVIDERS: PCP Family Medicine; Visit Provider Internal Medicine Pulmonary Disease | DX: J98.4 Other disorders of lung (principal); R06.02 Shortness of breath | CPT/HCPCS: 94010; 94729 ==

== ENCOUNTER 2022-06-21 14:42 | Outpatient (CLI) | payer MEDICARE, OTHER, SELFPAY ==
[2022-06-21 15:32] LABS: Basophils # 0.1 10^3/uL (0.0-0.1); Basophils % 0.4 %; Eosinophils # 0.3 10^3/uL (0.0-0.8); Eosinophils % 2.4 %; Hematocrit 40.6 % (37.0-47.0); Hemoglobin 12.4 g/dL (11.5-15.3); Lymphocytes % 22.1 %; Mean Corpuscular HGB Conc 30.5 g/dL (30.0-36.0); Mean Corpuscular Hemoglobin 29.7 pg (28.0-34.0); Mean Corpuscular Volume 97.1 fl (81-99); Mean Platelet Volume 11.4 fL (7.4-10.4); Monocytes # 0.9 10^3/uL (0.2-0.9); Monocytes % 6.5 %; Neutrophils # 9.13 10^3/uL (1.8-7.7); Neutrophils % 67.7 %; Nucleated Red Blood Cells % 0 %; Platelet Count 218 10^3/cmm (130-400); Red Blood Count 4.18 10^6/uL (4.1-5.3); Red Cell Distribution Width 13.5 % (12.1-15.1); White Blood Count 13.5 10^3/uL (4.0-10.0)
[2022-06-21 15:39] LABS: Erythrocyte Sedimentation Rate 15 mm/hr (0-15)
[2022-06-21 16:02] LABS: Alanine Aminotransferase 23 U/L (0-33); Albumin Level 3.7 g/dL (3.5-5.2); Alkaline Phosphatase 85 U/L (35-105); Anion Gap 12.9 (5-19); Aspartate Amino Transferase 19 U/L (0-32); Blood Urea Nitrogen 36 mg/dL (8-23); C Reactive Protein 4.4 mg/L (0.0-4.9); Calcium 8.8 mg/dL (8.5-10.5); Carbon Dioxide 34 mmol/L (22-29); Chloride 104 mmol/L (98-107); Globulin 2.6 g/dL (1.3-4.6); Glomerular Filtration Rate 37.2 mL/min (90-130); Glucose 84 mg/dL (65-115); Osmolality Calculated 312 mOsm/kg (285-295); Potassium 3.9 mmol/L (3.5-5.1); Sodium 147 mmol/L (136-145); Total Bilirubin 0.3 mg/dL (0.15-1.2); Total Protein 6.3 g/dL (6.6-8.7); Uric Acid 9.9 mg/dL (2.4-5.7)
== END 2022-06-21 14:43 | disposition home or self-care (01) ==
LOC: LAB 14:49
PROVIDERS: PCP Family Medicine; Visit Provider Internal Medicine
DX: M10.9 Gout, unspecified (principal); Z79.899 Other long term (current) drug therapy
CPT/HCPCS: 80053; 84550; 85025; 85651; 86140

== ENCOUNTER → 2022-06-26 10:19 | Outpatient (BNVA) | payer MEDICARE, OTHER, SELFPAY | PROVIDERS: PCP Family Medicine; Visit Provider Internal Medicine | DX: M32.9 Systemic lupus erythematosus, unspecified (principal); M81.0 Age-related osteoporosis without current pathological fracture; M10.9 Gout, unspecified; N17.9 Acute kidney failure, unspecified | CPT/HCPCS: 99214 ==

== ENCOUNTER 2022-07-12 12:57 | Emergency (ER) | payer MEDICARE, OTHER, SELFPAY ==
[2022-07-12 13:21] VITALS: BP 134/65; PULSE 88; RESP 16; TEMP 36.8; O2SAT 100; BMI 31.8
--- NOTE | 2022-07-12 13:38 | XR_ITS ---
WS: [id number] Right foot, 3 views, 07/12/2022 Clinical Data: swelling, pain Comparison: None. Findings: No fractures or dislocations are seen. There is diffuse demineralization of the bones. There is soft tissue swelling on the dorsum of the foot and also in the tissue surrounding the toes. No bone destru ction or erosion is noted. The joint spaces are normal. XR/XR foot RT min 3V* [id number] Impression: Diffuse demineralization of the bones of the right foot along with soft tissue swelling over the dorsum of the foot.
--- NOTE | 2022-07-12 13:40 | ED_ITS ---
Documented by User: Leandra Muñoz PA-C 07/12/22 13:46 HPI - Extremity Problem General: Chief complaint: Extremity Problem,Nontraumatic Stated complaint: right foot pain, possible blood clot Time Seen by Provider: 07/12/22 13:34 Source: patient Mode of arrival: wheelchair Limitations: no limitations History of Present Illness: 72-year-old female with a history of fibromyalgia, hypertension, hyperlipidemia, lupus and CAD presents to the ER today for increased swelling and pain in her right foot. Patient reports she does have increased levels of uric acid however is on prednisone daily. Patient reports no known injury but reports she does have a history of a fracture in that foot. Patient reports she has had increased redness also of that extremity. She reports she had significant tenderness to light touch of the foot earlier in the week however that has since improved but the swelling has worsened. Patient reports she also has pain and swelling up into her ankle and lower leg now. Denies any history of blood clots. Patient is not currently on a blood thinner. Denies any shortness of breath worse than baseline. Review of Systems General: Reports: 10 or more systems reviewed and unremarkable except in HPI and below PFSH ED PFSH: Medical History Fibromyalgia HTN (hypertension) Hyperlipidemia Rib fracture SLE (systemic lupus erythematosus related syndrome) Surgical History History of coronary artery stent placement x2 2013, x2 2019 at [facility] Social History Smoking and tobacco status: former smoker Quit status (tobacco): has quit using tobacco Year quit tobacco: 1987 [id number] Second hand smoke exposure: No Smoking risk assessment/counseling performed?: Yes Alcohol intake: never Substance/Drug Use: never Lives independently: Yes Household members: spouse and children Housing: House Marital status: Current occupational status: disabled Pets and animals: No Do you think of yourself as: Straight/Heterosexual Current gender identity: Female Physical Exam Const: COMMON NORMALS: no acute distress, patient oriented x3, no limitations, alert and well nourished Resp: COMMON NORMALS: normal respiratory effort and No retractions Cardio: COMMON NORMALS: regular rate, regular rhythm and No murmurs present (Cardio) RATE: regular rate RHYTHM: regular rhythm GI: COMMON NORMALS: Normal to inspection, nondistended, normoactive bowel sounds present, Soft to palpation and non-tender PALPATION: Yes Soft to palpation Extremity: NARRATIVE EXTREMITY EXAM: Patient has 3+ pitting edema of the right lower extremity especially over the dorsal aspect of the foot. There is also increased redness of the toes of the right foot. Patient has mild swelling into the ankle. Negative Homans' sign. Patient is not overly tender to light palpation as I would expect in gout flareup. Normal pulses noted bilaterally Neuro: COMMON NORMALS: patient oriented x3 SENSORIUM/ORIENTATION: Yes alert Psych: COMMON NORMALS: mental status grossly normal, Normal thought process present and cooperative THOUGHT PROCESS: Normal thought process present Skin: NARRATIVE SKIN EXAM: Erythema noted to right toes in comparison to the left. Course ED course: Of the rightPatient presents to the ER for increased right lower extremity swelling. She does have some pain also in this foot and leg. She is noted to have significant foot up into the ankle and lower leg. We will start with an x- ray and BNP/CBC. May need ultrasound however will wait on these results first. Vital Signs: Vital signs: Vital Signs Temperature 98.2 F 07/12/22 13:21 Pulse Rate 88 07/12/22 13:21 Respiratory Rate 16 07/12/22 13:21 Blood Pressure 134/65 07/12/22 13:21 Pulse Oximetry 100 07/12/22 13:21 Oxygen Delivery Me thod Nasal Cannula 07/12/22 13:21 Oxygen Flow Rate 3 07/12/22 13:21 MDM - Extremity (Nontraumatic) Lab Data 07/12/22 14:39 Radiology Impressions Foot X-Ray 07/12/22 13:38 Impression: Diffuse demineralization of the bones of the right foot along with soft tissue swelling over the dorsum of the foot. Venous Duplex 07/12/22 15:49 IMPRESSION: No sonographic evidence of deep vein thrombosis. Laboratory Results WBC 15.4 10^3/uL (4.0-10.0) H 07/12/22 14:39 RBC 3.95 10^6/uL (4.1-5.3) L 07/12/22 14:39 Hgb 11.8 g/dL (11.5-15.3) 07/12/22 14:39 Hct 38.6 % (37.0-47.0) 07/12/22 14:39 MCV 97.7 fl (81-99) 07/12/22 14:39 MCH 29.9 pg (28.0-34.0) 07/12/22 14:39 MCHC 30.6 g/dL (30.0-36.0) 07/12/22 14:39 RDW 13.5 % (12.1-15.1) 07/12/22 14:39 Plt Count 213 10^3/cmm (130-400) 07/12/22 14:39 MPV 11.1 fL (7.4-10.4) H 07/12/22 14:39 Neut % (Auto) 78.1 % 07/12/22 14:39 Lymph % (Auto) 10.8 % 07/12/22 14:39 [place] % (Auto) 9.7 % 07/12/22 14:39 Eos % (Auto) 0.3 % 07/12/22 14:39 Baso % (Auto) 0.3 % 07/12/22 14:39 Neut # (Auto) 12.01 10^3/uL (1.8-7.7) H 07/12/22 14:39 Lymph # (Auto) 1.7 10^3/uL (0.8-4.8) 07/12/22 14:39 [place] # (Auto) 1.5 10^3/uL (0.2-0.9) H 07/12/22 14:39 Eos # (Auto) 0.1 10^3/uL (0.0-0.8) 07/12/22 14:39 Baso # (Auto) 0.0 10^3/uL (0.0-0.1) 07/12/22 14:39 Nucleated RBC % (auto) 0 % 07/12/22 14:39 Nucleated RBCs # 0.0 /100WBC 07/12/22 14:39 D-Dimer 1.35 ug/mIFEU (0-0.59) H 07/12/22 14:59 NT-Pro-B Natriuret Pep 1767 pg/mL (0-125) H 07/12/22 14:54 Critical Care Time Critical Care Time: Critical Care Time: No Discharge Plan Discharge Patient Disposition: Home Clinical Impression: Cellulitis Condition: Stable Prescriptions: New doxycycline hyclate 100 mg capsule 100 mg PO BID 7 Days Qty: 14 0RF No Action mupirocin 2 % ointment 1 applic topical BID PRN dorzolamide 2 % drops 1 drp ophthalmic (eye) BID prednisone 5 mg tablet 5 mg PO DAILY Qty: 90 3RF Repatha Syringe 140 mg/mL syringe SUBCUT dorzolamide 2 % drops 1 drp ophthalmic (eye) TID febuxostat [Uloric] 40 mg tablet 40 mg PO DAILY Qty: 30 3RF erythromycin 5 mg/gram (0.5 %) ointment 0.5 inch ophthalmic (eye) QID PRN fluticasone propionate [Flonase Allergy Relief] 50 mcg/actuation spray,suspension 1 spray intranasal DAILY PRN Rx Instructions: administer into each nostril aspirin [Adult Low Dose Aspirin] 81 mg tablet,delayed release (DR/EC) 162 mg PO DAILY metoprolol succinate 25 mg tablet extended release 24 hr 12.5 mg PO BID Qty: 180 3RF evolocumab 140 mg/mL syringe 140 mg SUBCUT .every 2 weeks Qty: 2 12RF prednisone 1 mg tablet See Rx Instructions PO DAILY Qty: 180 0RF Rx Instructions: take 3 tabs daily. orally daily; potassium chloride [Klor-Con 10] 10 mEq tablet extended release 10 meq PO DAILY Qty: 90 3RF furosemide 20 mg tablet See Rx Instructions .ROUTE .COMPLEX Qty: 180 3RF Dose Instruction: Take 1 tablet by mouth twice daily Rx Instructions: 40mg in AM, 20mg at 2PM Discharge Orders: Discharge ED (Routine); Ordered 07/12/22 Ordered By: Amie Elizabeth Referrals: Abigail Lawson DO [Primary Care Provider] - Discharge Diet: As Directed Discharge Activity: Increase activity as tolerated Patient Instructions: Cellulitis (ED), Low Purine Diet (ED) Activity Restrictions/Additional Instructions: Take antibiotic as directed starting tonight. Make sure that you stay upright for 30 minutes after taking the medication to reduce acid reflux symptoms. Decrease purine in your diet to help reduce uric acid and gout symptoms. Foll ow-up with your primary care at the beginning of next week for reevaluation. Return to the ER for any new or worsening symptoms. Coding Level of Care Code ED Hydrometer Finisher for Guzman Fwd Documented by User: FROY Jewell 07/13/22 02:39 HPI - Extremity Problem General: Chief complaint: Extremity Problem,Nontraumatic Stated complaint: right foot pain, possible blood clot Time Seen by Provider: 07/12/22 13:34 PFSH ED PFSH: Medical History Fibromyalgia HTN (hypertension) Hyperlipidemia Rib fracture SLE (systemic lupus erythematosus related syndrome) Surgical History History of coronary artery stent placement x2 2014, x2 2019 at [facility] Social History Smoking and tobacco status: former smoker Quit status (tobacco): has quit using tobacco Year quit tobacco: 1987 [id number] Second hand smoke exposure: No Smoking risk assessment/counseling performed?: Yes Alcohol intake: never Substance/Drug Use: never Lives independently: Yes Household members: spouse and children Housing: House Marital status: Current occupational status: disabled Pets and animals: No Do you think of yourself as: Straight/Heterosexual Current gender identity: Female Course Vital Signs: Vital signs: Vital Signs Temperature 98.2 F 07/12/22 13:21 Pulse Rate 88 07/12/22 13:21 Respiratory Rate 16 07/12/22 13:21 Blood Pressure 134/65 07/12/22 13:21 Pulse Oximetry 100 07/12/22 13:21 Oxygen Delivery Me thod Nasal Cannula 07/12/22 13:21 Oxygen Flow Rate 3 07/12/22 13:21 MDM - Extremity (Nontraumatic) Medical Decision Making Patient care assumed from Leandra Muñoz. Patient was awaiting results of imaging. X-ray shows diffuse demineralization of the bones of the right foot with soft tissue swelling over the dorsum. Venous duplex is negative for DVT. Evaluation of the patient reveals erythema and swelling to the right first metatarsal extending to the dorsum of the foot. Pedal pulse is palpable. Moderate tenderness to palpation of the entire foot. Patient does have bilateral lower extremity swelling slightly worse on the right but most of the swelling on my examination is in her right foot. She also has tophi noted to her right great toe. This is similar to the tophi noted on her finger joint exa m. Patient does offer that she has uric acid elevation and has previously not tolerated allopurinol. She is on chronic steroids for lupus. Patient has slight elevation of her white blood cell count as compared to her previous test which have also been elevated. At this point I will treat patient to cover for cellulitis of the foot although she does understand that her uric acid being high increases her risk for gout and this could also be a gouty attack. Patient has elevated creatinine and is not a candidate given her numerous allergies for many medications to treat gout attack. She reports that she has not tolerated medications to lower her uric acid in the past but she cannot recall which ones they are. Patient thinks that she has tolerated doxycycline in the past and it is not listed on her allergy list. We will treat cellulitis with doxycycline. Patient should follow-up with her primary care provider next week for reevaluation. Return to the ER as needed for any new or worsening symptoms including, but not limited to, worsening pain, swelling, development of fever, chills. Lab Data 07/12/22 14:39 Radiology Impressions Foot X-Ray 07/12/22 13:38 Impression: Diffuse demineralization of the bones of the right foot along with soft tissue swelling over the dorsum of the foot. Venous Duplex 07/12/22 15:49 IMPRESSION: No sonographic evidence of deep vein thrombosis. Laboratory Results WBC 15.4 10^3/uL (4.0-10.0) H 07/12/22 14:39 RBC 3.95 10^6/uL (4.1-5.3) L 07/12/22 14:39 Hgb 11.8 g/dL (11.5-15.3) 07/12/22 14:39 Hct 38.6 % (37.0-47.0) 07/12/22 14:39 MCV 97.7 fl (81-99) 07/12/22 14:39 MCH 29.9 pg (28.0-34.0) 07/12/22 14:39 MCHC 30.6 g/dL (30.0-36.0) 07/12/22 14:39 RDW 13.5 % (12.1-15.1) 07/12/22 14:39 Plt Count 213 10^3/cmm (130-400) 07/12/22 14:39 MPV 11.1 fL (7.4-10.4) H 07/12/22 14:39 Neut % (Auto) 78.1 % 07/12/22 14:39 Lymph % (Auto) 10.8 % 07/12/22 14:39 [place] % (Auto) 9.7 % 07/12/22 14:39 Eos % (Auto) 0.3 % 07/12/22 14:39 Baso % (Auto) 0.3 % 07/12/22 14:39 Neut # (Auto) 12.01 10^3/uL (1.8-7.7) H 07/12/22 14:39 Lymph # (Auto) 1.7 10^3/uL (0.8-4.8) 07/12/22 14:39 [place] # (Auto) 1.5 10^3/uL (0.2-0.9) H 07/12/22 14:39 Eos # (Auto) 0.1 10^3/uL (0.0-0.8) 07/12/22 14:39 Baso # (Auto) 0.0 10^3/uL (0.0-0.1) 07/12/22 14:39 Nucleated RBC % (auto) 0 % 07/12/22 14:39 Nucleated RBCs # 0.0 /100WBC 07/12/22 14:39 D-Dimer 1.35 ug/mIFEU (0-0.59) H 07/12/22 14:59 NT-Pro-B Natriuret Pep 1767 pg/mL (0-125) H 07/12/22 14:54 Discharge Plan Discharge Patient Disposition: Home Clinical Impression: Cellulitis Condition: Stable Prescriptions: New doxycycline hyclate 100 mg capsule 100 mg PO BID 7 Days Qty: 14 0RF No Action mupirocin 2 % ointment 1 applic topical BID PRN dorzolamide 2 % drops 1 drp ophthalmic (eye) BID prednisone 5 mg tablet 5 mg PO DAILY Qty: 90 3RF Repatha Syringe 140 mg/mL syringe SUBCUT dorzolamide 2 % drops 1 drp ophthalmic (eye) TID febuxostat [Uloric] 40 mg tablet 40 mg PO DAILY Qty: 30 3RF erythromycin 5 mg/gram (0.5 %) ointment 0.5 inch ophthalmic (eye) QID PRN fluticasone propionate [Flonase Allergy Relief] 50 mcg/actuation spray,suspension 1 spray intranasal DAILY PRN Rx Instructions: administer into each nostril aspirin [Adult Low Dose Aspirin] 81 mg tablet,delayed release (DR/EC) 162 mg PO DAILY metoprolol succinate 25 mg tablet extended release 24 hr 12.5 mg PO BID Qty: 180 3RF evolocumab 140 mg/mL syringe 140 mg SUBCUT .every 2 weeks Qty: 2 12RF prednisone 1 mg tablet See Rx Instructions PO DAILY Qty: 180 0RF Rx Instructions: take 3 tabs daily. orally daily; potassium chloride [Klor-Con 10] 10 mEq tablet extended release 10 meq PO DAILY Qty: 90 3RF furosemide 20 mg tablet See Rx Instructions .ROUTE .COMPLEX Qty: 180 3RF Dose Instruction: Take 1 tablet by mouth twice daily Rx Instructions: 40mg in AM, 20mg at 2PM Discharge Orders: Discharge ED (Routine); Ordered 07/12/22 Ordered By: Amie Elizabeth Referrals: Abigail Lawson DO [Primary Care Provider] - Discharge Diet: As Directed Discharge Activity: Increase activity as tolerated Patient Instructions: Cellulitis (ED), Low Purine Diet (ED) Activity Restrictions/Additional Instructions: Take antibiotic as directed starting tonight. Make sure that you stay upright for 30 minutes after taking the medication to reduce acid reflux symptoms. Decrease purine in your diet to help reduce uric acid and gout symptoms. Follow-up with your primary care at the beginning of next week for reevaluation. Return to the ER for any new or worsening symptoms. Coding Level of Care Code ED Hydrometer Finisher for Guzman Haynes
[2022-07-12 15:36] LABS: D Dimer 1.35 ug/mIFEU (0-0.59)
--- NOTE | 2022-07-12 15:49 | USR_ITS ---
PROCEDURE INFORMATION: Exam: US Duplex Right Lower Extremity Veins, Limited Exam date and time: 07/12/2022 4:52 PM Age: 72 years old Clinical indication: Edema, localized; Lower extremity, right; Additional info: Swelling, pain TECHNIQUE: Imaging protocol: Real-time duplex ultrasound of the right extremity with 2-D morse scale, color Doppler flow and spectral waveform analysis including responses to compression and other maneuvers (when performed) with image documentation. Limited exam was focused on the right lower extremity veins. COMPARISON: CR XR foot RT min 3V* [id number] 07/12/2022 1:58 PM FINDINGS: Right deep veins: Unremarkable. The common femoral, femoral, proximal profunda femoral, popliteal, posterior tibial and peroneal veins are patent without thrombus. Normal Doppler waveforms. Normal compressibility and/or augmentation response. Right superficial veins: Unremarkable. Saphenofemoral junction is patent without thrombus. Soft tissues: Unremarkable. US/[place] [id number] IMPRESSION: No sonographic evidence of deep vein thrombosis.
[2022-07-12 16:32] LABS: Basophils % 0.3 %; Eosinophils # 0.1 10^3/uL (0.0-0.8); Eosinophils % 0.3 %; Hematocrit 38.6 % (37.0-47.0); Hemoglobin 11.8 g/dL (11.5-15.3); Lymphocytes # 1.7 10^3/uL (0.8-4.8); Lymphocytes % 10.8 %; Mean Corpuscular HGB Conc 30.6 g/dL (30.0-36.0); Mean Corpuscular Hemoglobin 29.9 pg (28.0-34.0); Mean Corpuscular Volume 97.7 fl (81-99); Mean Platelet Volume 11.1 fL (7.4-10.4); Monocytes # 1.5 10^3/uL (0.2-0.9); Monocytes % 9.7 %; Neutrophils # 12.01 10^3/uL (1.8-7.7); Neutrophils % 78.1 %; Nucleated Red Blood Cells % 0 %; Platelet Count 213 10^3/cmm (130-400); Red Blood Count 3.95 10^6/uL (4.1-5.3); Red Cell Distribution Width 13.5 % (12.1-15.1); White Blood Count 15.4 10^3/uL (4.0-10.0)
[2022-07-12 16:51] LABS: NT Pro B Type Natriuretic Pept 1767 pg/mL (0-125)
== END 2022-07-12 19:18 | disposition home or self-care (01) ==
PROVIDERS: Emergency Provider Physician Assistant; PCP Family Medicine
DX: L03.115 Cellulitis of right lower limb (principal); Z79.82 Long term (current) use of aspirin; Z87.891 Personal history of nicotine dependence; I10 Essential (primary) hypertension; E78.5 Hyperlipidemia, unspecified; M32.9 Systemic lupus erythematosus, unspecified; M79.604 Pain in right leg
CPT/HCPCS: 36415; 73630; 83880; 85025; 85378; 93971; 99285

== ENCOUNTER → 2022-09-23 14:36 | Outpatient (BNVA) | payer MEDICARE, OTHER, SELFPAY | PROVIDERS: PCP Family Medicine; Visit Provider Internal Medicine Pulmonary Disease | DX: R06.02 Shortness of breath (principal); M32.9 Systemic lupus erythematosus, unspecified; Z95.5 Presence of coronary angioplasty implant and graft; Z90.49 Acquired absence of other specified parts of digestive tract; J98.4 Other disorders of lung; I25.119 Atherosclerotic heart disease of native coronary artery with unspecified angina pectoris; Z79.52 Long term (current) use of systemic steroids; I50.32 Chronic diastolic (congestive) heart failure; Z87.891 Personal history of nicotine dependence; I25.2 Old myocardial infarction | CPT/HCPCS: 99214 ==

== ENCOUNTER → 2022-10-29 10:54 | Outpatient (BNVA) | payer MEDICARE, OTHER, SELFPAY | PROVIDERS: PCP Family Medicine; Visit Provider Internal Medicine Cardiovascular Disease | DX: I11.0 Hypertensive heart disease with heart failure (principal); I50.32 Chronic diastolic (congestive) heart failure; I25.119 Atherosclerotic heart disease of native coronary artery with unspecified angina pectoris; E78.5 Hyperlipidemia, unspecified; J98.4 Other disorders of lung; M81.0 Age-related osteoporosis without current pathological fracture; M32.9 Systemic lupus erythematosus, unspecified; Z87.891 Personal history of nicotine dependence | CPT/HCPCS: 99214 ==

== ENCOUNTER → 2023-01-01 14:44 | Outpatient (BNVA) | payer MEDICARE, OTHER, SELFPAY | PROVIDERS: PCP Family Medicine; Visit Provider Internal Medicine | DX: M32.9 Systemic lupus erythematosus, unspecified (principal); M10.9 Gout, unspecified; N17.9 Acute kidney failure, unspecified | CPT/HCPCS: 99214 ==

== ENCOUNTER 2023-01-04 21:40 | Inpatient (IN) | payer MEDICARE, OTHER, SELFPAY ==
--- NOTE | 2023-01-04 21:55 | ECG_ITS ---
[facility] Test Date: 2023-01-04 Pat Name: Nanda Roe Department: Room: Gender: Female Manager Dialysis: : 1950 Requested By: Virginia Farrell Order Number: [id number] Bryce MD: Hardy Ojeda M.D. Measurements Intervals [place] Rate: 83 P: 26 SD: 150 QRS: -14 QRSD: 89 T: 67 QT: 362 QTc: 426 Interpretive Statements SINUS RHYTHM LEFT VENTRICULAR HYPERTROPHY AND ST-T CHANGE [VOLTAGE CRITERIA PLUS ST/T ABNORMALITY] No previous ECG available for comparison Electronically Signed On 01-05-2023 22:02:41 MASONRY TEACHER by Hardy Ojeda M.D. [email or web address] greenvilleBabyJunk, Incuniversity hospitals beachwood medical centerinkSIG [email or web address]/store/[id number] f
[2023-01-04 21:57] VITALS: BP 242/94; PULSE 84; RESP 22; TEMP 36.1; O2SAT 99
--- NOTE | 2023-01-04 22:02 | XRR_ITS ---
PROCEDURE INFORMATION: Exam: XR Chest Exam date and time: 01/04/2023 10:22 PM Age: 72 years old Clinical indication: Chest pressure; Prior surgery; Surgery date: 6+ months; Patient HX: Retrosternal chest pain; HX shrinking lung syndrome; O2 dependant; HTN; Diabetes; Lupus; Cardiac stents x 4 (2019); Ex smoker TECHNIQUE: Imaging protocol: Radiologic exam of the chest. Views: 1 view. COMPARISON: CR XR ribs BI 3V* [id number] 03/28/2021 3:27 PM FINDINGS: Lungs: Shallow inspiration. Calcified granuloma in the right upper lung. The lungs are otherwise clear. Pleural spaces: Unremarkable. No pleural effusion. No pneumothorax. Heart/Mediastinum: Unremarkable. No cardiomegaly. Bones/joints: Thoracic curvature and degenerative changes. Old bilateral rib fractures. Other findings: No acute findings. XR/XR chest 1V [id number] IMPRESSION: No acute findings.
[2023-01-04 22:32] LABS: Basophils % 0.4 %; Eosinophils # 0.2 10^3/uL (0.0-0.8); Eosinophils % 1.9 %; Lymphocytes # 1.2 10^3/uL (0.8-4.8); Lymphocytes % 11.1 %; Mean Corpuscular Hemoglobin 30.5 pg (27-33); Mean Corpuscular Volume 98.6 fl (85-98); Mean Platelet Volume 10.9 fL (7.4-10.4); Monocytes # 0.9 10^3/uL (0.2-0.9); Monocytes % 8.7 %; Neutrophils % 76.9 %; Nucleated Red Blood Cells % 0 %; Platelet Count 201 10^3/cmm (157-399); Red Blood Count 4.26 10^6/uL (3.85-5.65); Red Cell Distribution Width 13.6 % (12.1-15.1); White Blood Count 10.54 10^3/uL (3.29-11.43)
[2023-01-04 23:13] LABS: Troponin(5th) Baseline 22 ng/L (0-10)
[2023-01-04 23:19] LABS: Alanine Aminotransferase 17 U/L (0-33); Albumin Level 4.1 g/dL (3.5-5.2); Alkaline Phosphatase 87 U/L (35-105); Anion Gap 11.2 (5-19); Aspartate Amino Transferase 16 U/L (0-32); Blood Urea Nitrogen 23 mg/dL (8-23); Calcium 9.2 mg/dL (8.5-10.5); Carbon Dioxide 34 mmol/L (22-29); Chloride 104 mmol/L (98-107); Globulin 2.3 g/dL (1.3-4.6); Glucose 121 mg/dL (65-115); NT Pro B Type Natriuretic Pept 2762 pg/mL (0-125); Osmolality Calculated 305 mOsm/kg (285-295); Potassium 4.2 mmol/L (3.5-5.1); Sodium 145 mmol/L (136-145); Total Bilirubin 0.4 mg/dL (0.15-1.2); Total Protein 6.4 g/dL (6.6-8.7)
[2023-01-04 23:27] VITALS: BP 222/84; PULSE 74; RESP 27; TEMP 36.6; O2SAT 98
--- NOTE | 2023-01-04 23:56 | ECG_ITS ---
[facility] Test Date: 2023-01-04 Pat Name: Nanda Roe Department: Room: Gender: Female Ship Purser: : 1950 Requested By: Virginia Farrell Order Number: [id number] Bryce MD: Hardy Ojeda M.D. Measurements Intervals [place] Rate: 63 P: 34 GA: 152 QRS: -10 QRSD: 89 T: 57 QT: 388 QTc: 398 Interpretive Statements SINUS RHYTHM MINIMAL VOLTAGE CRITERIA FOR LVH, CONSIDER NORMAL VARIANT [MEETS CRITERIA IN ONE OF: R(aVL), S(V1), R(V5), R(V5/V6)+S(V1)] No previous ECG available for comparison Electronically Signed On 01-05-2023 22:02:53 LOAN REVIEW MANAGER by Hardy Ojeda M.D. [id number]
[2023-01-05] VITALS (63 sets, daily range): BP systolic 123–204; BP diastolic 42–107; PULSE 65–98; RESP 12–32; TEMP 36.6–37.2; O2SAT 92–100; BMI 36.5
[2023-01-05] MEDS: labetalol 5 mg/mL SDV 20mL 20 MG IVP (00:01)
[2023-01-05] MEDS: nitroglycerin 1 gm/inch oint Pkt 1.5 INCH TOPICAL (00:05)
[2023-01-05 01:05] LABS: Troponin 5 2HR 43.96 ng/L (0-10)
[2023-01-05 01:06] LABS: Troponin 5 2HR Delta 21.96 ABS# (0-10)
--- NOTE | 2023-01-05 02:17 | ED_ITS ---
HPI - Chest Pain General: Chief Complaint: Chest Pain Stated Complaint: High BP 215/104 Time Seen by Provider: 01/04/23 23:04 Source: patient History of Present Illness: 72-year-old female with a history of coronary disease. She tells me she has 4 stents, the last 2 placed in 2019. No testing on her heart done since that time. Patient notes that she has significant chest discomfort this evening at home, it seems to be a bit improved now. She took her blood pressure and it was significantly high. Pressure was 240 systolic on arrival here. It has improved to some degree on its own. Her discomfort is improved as well, although she still complains of very mild discomfort, with shortness of breath. 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 MD complaint: chest pain Associated symptoms: Reports dyspnea; Deny abdominal pain, fever(s), nausea, palpitations or vomiting Review of Systems Const: Denies: fever(s), chills or body aches Eyes: Denies: change in vision Card: Reports: chest pain; Denies: palpitations Resp: Reports: dyspnea; Denies: productive cough, non-productive cough or wheezing GI: Denies: abdominal pain, nausea, vomiting, diarrhea or hematochezia : Denies: difficulty voiding Skin/Breast: Denies: rash Neuro: Denies: headache(s), weakness in extremities, dizziness or confusion PFS ED PFSH: Medical History Acute kidney injury Chronic steroid use Fibromyalgia HTN (hypertension) Hyperlipidemia Intertrigo Rib fracture Seborrheic keratosis 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) Surgical History History of coronary artery stent placement x2 2013, x2 2019 at [facility] Social History Smoking and tobacco/nicotine status: former use of tobacco/nicotine Quit status (tobacco/nicotine): has quit using Year quit tobacco: 1987 [id number] Second hand smoke exposure: No Alcohol intake: never Substance/Drug Use: never Lives independently: Yes Household members: spouse and children Housing: House Marital status: Current occupational status: disabled Pets and animals: No Do you think of yourself as: Straight/Heterosexual Current gender identity: Female Physical Exam Const: GENERAL APPEARANCE: cooperative and ill appearing (mildly) HENMT: COMMON NORMALS: normocephalic, atraumatic and Normal external nose present HEAD & SCALP: normocephalic and atraumatic FACE & SINUS: normal facial exam and face symmetric NOSE: Normal external nose present Eye: COMMON NORMALS: Equal, round and reactive pupils present and EOMs intact bilaterally PUPIL: Yes Equal, round and reactive pupils present Neck/C-Spine: GENERAL: Yes trachea midline Chest: CHEST: Yes Symmetrical chest wall rise Resp: COMMON NORMALS: normal respiratory effort, No retractions, No use of accessory muscles and clear to auscultation bilaterally AUSCULTATION: clear to auscultation bilaterally Cardio: COMMON NORMALS: regular rate and regular rhythm RATE: regular rate RHYTHM: regular rhythm GI: COMMON NORMALS: Normal to inspection, nondistended, normoactive bowel sounds present Extremity: COMMON NORMALS: no pedal edema Neuro: LAURA COMA SCALE: document GCS findings Blodgett coma scale eye opening: Spontaneous Laura coma scale verbal response: Orientated Laura coma scale motor response: Obey commands Bl[place] coma scale total score: 15 SENSORY EXAM: Yes extremities (intact) Psych: COMMON NORMALS: speech normal SPEECH: Yes normal speech Skin: COMMON NORMALS: no rashes or lesions noted GENERAL SKIN EXAM: no chandler hes or lesions noted Course Vital Signs: Vital signs: Vital Signs Temperature 97.9 F 01/05/23 12:00 Pulse Rate 83 01/05/23 12:00 Respiratory Rate 16 01/05/23 12:00 Blood Pressure 155/64 01/05/23 12:00 Pulse Oximetry 100 01/05/23 12:00 Oxygen Delivery Me thod Nasal Cannula 01/05/23 12:00 Oxygen Flow Rate 2 01/05/23 10:27 MDM - Chest Pain Medical Decision Making Patient is given labetalol and Nitropaste, with improvement in her blood pressure. Blood pressure is currently 160 systolic. Pressure in her chest is essentially resolved. EKG showed a sinus rhythm, normal axis. Intervals are normal. No acute ST wave changes. However, her delta troponin is 22. Her BNP is 2700. Chest x-ray is nonacute. Patient will be admitted, essentially for non-STEMI. She will go to the [facility]. This patient has a listed allergy to clopidogrel. Also to Brilinta. 1 dose of Lovenox is given here. Lab Data 01/04/23 22:20 01/04/23 22:20 Radiology Impressions Chest X-Ray 01/04/23 22:02 IMPRESSION: No acute findings. Laboratory Results WBC 10.54 10^3/uL (3.29-11.43) 01/04/23 22: RBC 4.26 10^6/uL (3.85-5.65) 01/04/23 22:20 Hgb 13.00 g/dL (11.27-16.99) 01/04/23 22: Hct 42.0 % (36-47) 01/04/23 22: MCV 98.6 fl (85-98) H 01/04/23 22:20 MCH 30.5 pg (27-33) 01/04/23 22: MCHC 31.0 g/dL (30-55) 01/04/23 22: RDW 13.6 % (12.1-15.1) 01/04/23 22:20 Plt Count 201 10^3/cmm (157-399) 01/04/23 22:20 MPV 10.9 fL (7.4-10.4) H 01/04/23 22:20 Neut % (Auto) 76.9 % 01/04/23 22:20 Lymph % (Auto) 11.1 % 01/04/23 22:20 [place] % (Auto) 8.7 % 01/04/23 22:20 Eos % (Auto) 1.9 % 01/04/23: Baso % (Auto) 0.4 % 01/04/23 22:20 Neut # (Auto) 8.10 10^3/uL (1.8-7.7) H 01/04/23 22:20 Lymph # (Auto) 1.2 10^3/uL (0.8-4.8) 01/04/23 22:20 [place] # (Auto) 0.9 10^3/uL (0.2-0.9) 01/04/23 22:20 Eos # (Auto) 0.2 10^3/uL (0.0-0.8) 01/04/23 22:20 Baso # (Auto) 0.0 10^3/uL (0.0-0.1) 01/04/23 22:20 Nucleated RBC % (auto) 0 % 01/04/23 22:20 Nucleated RBCs # 0.0 /100WBC 01/04/23 22:20 Sodium 145 mmol/L (136-145) 01/04/23 22:20 Potassium 4.2 mmol/L (3.5-5.1) 01/04/23 22:20 Chloride 104 mmol/L (98-107) 01/04/23 22:20 Carbon Dioxide 34 mmol/L (22-29) H 01/04/23 22:20 Anion Gap 11.2 (5-19) 01/04/23 22:20 BUN 23 mg/dL (8-23) 01/04/23 22:20 Creatinine 0.9 mg/dL (0.5-0.9) 01/04/23 22:20 GFR Calculation Not Reportable 01/04/23 22:20 Glucose 121 mg/dL (65-115) H 01/04/23 22:20 Calculated Osmolality 305 mOsm/kg (285-295) H 01/04/23 22:20 Calcium 9.2 mg/dL (8.5-10.5) 01/04/23 22:20 Iron 54 ug/dL (37-145) 01/05/23 00:16 TIBC 265 mcg/dl 01/05/23 00:16 % Saturation 20.3 % (20-50) 01/05/23 00:16 Unsat Iron Binding 211 ug/dL (112-347) 01/05/23 00:16 Total Bilirubin 0.4 mg/dL (0.15-1.2) 01/04/23 22:20 AST 16 U/L (0-32) 01/04/23 22:20 ALT 17 U/L (0-33) 01/04/23 22:20 Alkaline Phosphatase 87 U/L (35-105) 01/04/23 22:20 Troponin T Baseline 22 ng/L (0-10) H 01/04/23 22:20 Troponin T 120 Minute 43.96 ng/L (0-10) H 01/05/23 00:16 Delta Troponin T 21.96 ABS# (0-10) H* 01/05/23 00:16 NT-Pro-B Natriuret Pep 2762 pg/mL (0-125) H 01/04/23 22:20 Total Protein 6.4 g/dL (6.6-8.7) L 01/04/23 22:20 Albumin 4.1 g/dL (3.5-5.2) 01/04/23 22:20 Globulin 2.3 g/dL (1.3-4.6) 01/04/23 22:20 Vitamin B12 274 pg/mL (232-1245) 01/05/23 00:16 TSH 2.45 uIU/mL (0.27-4.20) 01/05/23 00:16 All radiology interpretation(s) finalized by discharge Discharge Plan Discharge Patient Disposition: Admitted As Inpatient Admit Provider: Maurice Ko Clinical Impression: HTN (hypertension), Non-ST elevated myocardial infarction (non-STEMI) Condition: Stable Coding Level of Care Code ED House Fellow for Guzman Haynes
[2023-01-05] MEDS: enoxaparin 60 mg/0.6 mL Syringe SUBCUT (02:39)
--- NOTE | 2023-01-05 03:30 | PC.NURSE ---
Spoke with regading patients lovenox dose. Was given in ER at 2:39. Per retime next dose 12 hours from last dose given.
--- NOTE | 2023-01-05 03:39 | P.HP_ITS ---
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 As per the patient she was having chest pressure like symptoms radiating to the jaw when she checked her blood pressure and found the blood pressures to be elevated up to 220 systolics. Usually her blood pressures at home run from 1 20-1 40 systolics. Denies any changes in her medications recently. In the ER she was found to have a systolic blood pressure of more than 220 for which she received 10 mg of oral amlodipine and 20 mg of IV labetalol along with 1.5 of nitroglycerin patch. On examination her blood pressure was 198 systolic but stated her chest pressures had improved but still there. Review of Systems General: Reports: 10 or more systems reviewed and unremarkable except in HPI and below Const: Denies: fever(s), chills, body aches, change in appetite, change in weight, malaise, night sweats, diaphoresis, change in sleep pattern, daytime sleepiness or snoring Eyes: Denies: change in vision, blurry vision, photophobia, eye discomfort or eye discharge ENMT: Denies: throat pain, enlarged tonsils, hoarseness, mouth pain, oral sores, dry mouth, tinnitus, nasal congestion or post nasal drip Card: Denies: chest pain, palpitations, irregular heart rhythm, edema, swelling of feet/ankles, lightheadedness, syncope, pre-syncope, dyspnea on exertion, orthopnea, leg pain with exertion or acrocyanosis Resp: Denies: dyspnea, productive cough, non-productive cough, wheezing, stridor, pain on inspiration, change in phlegm color, hemoptysis or chest congestion GI: Denies: abdominal pain, nausea, vomiting, hematemesis, coffee ground emesis, dysphagia, heartburn, diarrhea, constipation, bloating, GI cramping, change in bowel habits, pain on defecation, hematochezia or melena : Denies: flank pain, dysuria, urinary frequency, urinary urgency, urinary hesitancy, nocturia or hematuria Musc: Denies: neck pain, back pain, extremity pain, joint pain, joint swelling, joint redness, joint stiffness or limited range of motion Neuro: Denies: headache(s), numbness in extremities, weakness in extremities, sensory changes, lack of coordination, difficulty walking, frequent falls, dizziness, vertigo, confusion, Slurred speech present, difficulty communicating thoughts or seizure-like activity Psych: Denies: anxiety, depression, mood swings, panic attacks, hopelessness or irritability Endo: Denies: polyuria, polydipsia, tired all the time, cold intolerance, excessive sweating, flushing or heat intolerance Shaka/Lymph: Denies: easy bruising or easy bleeding All/Imm: Denies: tongue swelling, facial swelling or acute wheezing Medications/Allergies Home Medications Medication Instructions Recorded Confirmed Last Taken Type aspirin 81 mg tablet,delayed 162 mg PO DAILY 05/04/21 01/05/23 Unknown History release (Adult Low Dose Aspirin) mupirocin 2 % topical ointment 1 applic topical BID PRN Itching 08/14/21 01/01/23 Unknown History erythromycin 5 mg/gram (0.5 %) eye 0.5 inch ophthalmic (eye) QID 05/24/22 01/05/23 Unknown History ointment (3.5 gram tube) potassium chloride 10 mEq 10 meq PO DAILY #90 tabs 06/11/22 01/05/23 Unknown Rx tablet,extended release (Klor-Con) dorzolamide 2 % eye drops 1 drp ophthalmic (eye) TID 06/26/22 01/05/23 Unknown History prednisone 5 mg tablet 2 mg PO QPM 09/23/22 01/05/23 Unknown History evolocumab 140 mg/mL subcutaneous 140 mg SUBCUT .Q2W 10/29/22 01/05/23 12/31/22 History syringe (Repatha Syringe) metoprolol tartrate 25 mg tablet 25 mg PO BID #180 tabs 10/29/22 01/05/23 Unknown Rx prednisone 1 mg tablet 6 mg PO QAM 10/29/22 01/05/23 Unknown History furosemide 20 mg tablet 20 mg PO DAILY 01/05/23 01/05/23 Unknown History Allergies Allergy/AdvReac Type Severity Reaction Status Date / Time amlodipine Allergy leg Verified 01/01/23 15:04 swelling azathioprine [From Imuran] Allergy Unknown Verified 01/01/23 15:04 ciprofloxacin Allergy Unknown Verified 01/01/23 15:04 clindamycin Allergy Unknown Verified 01/01/23 15:04 clonidine Allergy lungs and Verified 01/01/23 15:04 skin clopidogrel [From Plavix] Allergy stopped Verified 01/01/23 15:04 producing white blood cells hydrochlorothiazide Allergy Unknown Verified 01/01/23 15:04 [From Avalide] irbesartan [From Avalide] Allergy Unknown Verified 01/01/23 15:04 lisinopril Allergy Unknown Verified 01/01/23 15:04 methotrexate Allergy Unknown Verified 01/01/23 15:04 nebivolol [From Bystolic] Allergy ALGY-Rash Verified 01/01/23 15:04 oxycodone Allergy Unknown Verified 01/01/23 15:04 Penicillins Allergy extreme Verified 01/01/23 15:04 swelling spironolactone Allergy ADR-Abdominal Verified 01/01/23 15:04 Pain Sulfa (Sulfonamide Allergy Unknown Verified 01/01/23 15:04 Antibiotics) valsartan [From Diovan] Allergy Unknown Verified 01/01/23 15:04 diclofenac [From Voltaren] AdvReac Intermediate ADR/ALGY-Pa Verified 01/01/23 15:04 lpitations ticagrelor [From Brilinta] AdvReac Unknown Verified 01/01/23 15:04 PFSH Acute PFSH: Medical History (Updated 01/05/23 @ 03:46 by Maurice Ko MD) Acute kidney injury Chronic steroid use Fibromyalgia HTN (hypertension) Hyperlipidemia Intertrigo Rib fracture Seborrheic keratosis 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) Surgical History History of coronary artery stent placement x2 2014, x2 2019 at [facility] Social History Smoking and tobacco/nicotine status: former use of tobacco/nicotine Quit status (tobacco/nicotine): has quit using Year quit tobacco: 1987 [id number] Second hand smoke exposure: No Alcohol intake: never Substance/Drug Use: never Lives independently: Yes Household members: spouse and children Housing: House Marital status: Current occupational status: disabled Pets and animals: No Do you think of yourself as: Straight/Heterosexual Current gender identity: Female Vitals/I&O/Wt Last Vital Signs Temp 97.8 F 01/04/23 23:27 Pulse 67 01/05/23 03:20 Resp 20 H 01/05/23 03:20 BP 152/58 01/05/23 03:20 Pulse Ox 96 01/05/23 03:20 O2 Del Method Nasal Cannula 01/05/23 02:44 O2 Flow Rate 2 01/05/23 02:44 Weight last 48 hrs Weight 64.41 kg Physical Exam Narrative: General: No acute distress, AO x3, NC oxygen supplementation HEENT: PERRLA, pupils bilaterally equal and reactive Chest: Bilateral bronchial breath sounds all over lung connelly with occasional r honchi and coarse crackles CVS: S1-S2 regular, no murmurs, no tachycardia, no gallops, no rubs Abdomen: Soft, nontender, no organomegaly, bowel sounds present, morbidly obese Neuro: No focal deficits, no facial deformity, AO x3, power 5/5 in all limbs Data 01/04/23 22:20 01/04/23 22:20 A&P Assessment and plan (1) Hypertensive urgency: Goal blood pressure less than 140/90 mmHg. Associated with chest pressure symptom and possible non-ST ovation LA. Started on nitro drip. Wean off keeping goal blood pressures. Start on amlodipine 10 mg oral daily, continue with metoprolol 25 mg twice daily at home dose. Will uptitrate and wean nitro drip keeping goal blood pressures. (2) Non-ST elevated myocardial infarction (non-STEMI): Positive delta troponin 2 hours. Associated with chest pressure-like symptoms. History of CAD with stents in past. Check A1c, lipid panel. Continue with home dose of aspirin 162 mg daily, start on atorvastatin 20 mg daily. Check echocardiogram. We will plan for Lexiscan stress test. Nitro drip as above. Full dose Lovenox one 1 mg/kg body weight every 12 hourly. (3) SLE (systemic lupus erythematosus related syndrome): Chronic. Follows up with rheumatology. Continue with home dose of prednisone (4) CAD (coronary artery disease): Qualifiers: Coronary Disease-Associated Artery/Lesion type: unspecified vessel or lesion type [place] vs. transplanted heart: [place] heart Associated angina: with unspecified angina Qualified Code(s): I25.119 - Atherosclerotic heart disease of [place] coronary artery with unspecified angina pectoris (5) Chronic steroid use: (6) Oxygen dependent: Insetting of chronic COPD, sarcoidosis and lupus lung. At baseline oxygen supplementation. No exacerbation. DuoNebs as needed. Continue home dose of steroid. (7) Diastolic heart failure: Continue home dose of Lasix 20 mg daily. Strict input per charting, daily weights. Euvolemic currently. Qualifiers: Heart failure chronicity: chronic Qualified Code(s): I50.32 - Chronic diastolic (congestive) heart failure Plan CODE STATUS: Discussed in detail with the patient. Does not want intubation. Patient would like to think further and talk to her regarding CPR. Limited resuscitation for now. Cardiac diet, n.p.o. after midnight. Protonix for PUD prophylaxis Full dose Lovenox will suffice for DVT prophylaxis. Attestations Medical Necessity Statement*: Admission for more than 2 midnights for management of hypertensive urgency requiring nitro drip, non-ST elevation LA Diagnoses Hypertensive urgency I16.0 Non-ST elevated myocardial infarction (non-STEMI) I21.4 SLE (systemic lupus erythematosus related syndrome) M32.9 CAD (coronary artery disease) I25.119 Coronary Disease-Associated Artery/Lesion type: unspecified vessel or lesion type [place] vs. transplanted heart: [place] heart Associated angina: with unspecified angina Chronic steroid use Oxygen dependent Z99.81 Diastolic heart failure I50.32 Heart failure chronicity: chronic
--- NOTE | 2023-01-05 03:49 | USCV_ITS ---
Nanda Roe Age: 72 Gender: F : 1950 Exam Date: 01/05/2023 06:52 Ordering Phys: Maurice Ko MD Technologist: Yohannes Brunner [place] [facility] [place] stem[place] BP: 163 / 71 HR: 72 Rhythm: Sinus Technical Quality: MEASUREMENTS (Male / Female) Normal Values 2D ECHO LVOT Diameter 2.0 cm LV Ejection Fraction MOD 2C 66.2 % LV Ejection Fraction 2C AL 66.2 % LA Diameter 3.7 cm LA Width 3.0 cm LA Height 3.8 cm RA Width 3.1 cm RA Height 3.3 cm Aorta at Sinotubular Diameter 2.3 cm IVC Diameter 1.7 cm DOPPLER AV Peak Velocity 162.0 cm/s LVOT Peak Velocity 140.0 cm/s AV Area Cont Eq vti 2.5 cm squared AV Area Cont Eq pk 2.8 cm squared MV Peak Velocity 207.0 cm/s MV Area PHT 3.1 cm squared Mitral E to A Ratio 0.5 MV E' Velocity 42.5 cm/s Mitral E to MV E' Ratio 14.6 Mitral E to LV E' Lateral Ratio 15.5 Mitral E to LV E' Septal Ratio 14.1 TR Peak Velocity 384.0 cm/s TR Peak Gradient 59.0 mmHg TR Mean Velocity 269.7 cm/s TR Mean Gradient 32.3 mmHg TR Velocity Time Integral 73.4 cm Right Atrial Pressure 3.0 mmHg Pulmonary Artery Systolic Pressu 62.0 mmHg PV Peak Velocity 115.0 cm/s RV Acceleration Time 0.1 s RV Ejection Time 0.3 s RV AcT/ET 0.4 FINDINGS Left Ventricle Normal left ventricular size and systolic function, EF 77 %. Moderate left ventricular hypertrophy. Grade I/IV diastolic dysfunction (abnormal relaxation filling pattern), normal to mildly elevated filling pressures. Right Ventricle The right ventricle is normal in size and function. Right Atrium The right atrium is normal in size. Left Atrium Mildly increased left atrial size. Mitral Valve Moderate mitral annular calcification. Thickened mitral valve. Aortic Valve Thickened aortic valve. Tricuspid Valve Trace tricuspid valve regurgitation. Moderate pulmonary hypertension with a peak pulmonary artery systolic pressure of 62 mmHg Pulmonic Valve No gross abnormalities noted Pericardium Normal pericardium without effusion. Aorta Normal ascending aorta dimension. IVC Normal inferior vena cava. CONCLUSIONS Normal left ventricular size and systolic function, EF 77 %. Moderate left ventricular hypertrophy. Grade I/IV diastolic dysfunction (abnormal relaxation filling pattern), normal to mildly elevated filling pressures. Moderate mitral annular calcification. Thickened mitral valve. Thickened aortic valve. Trace tricuspid valve regurgitation. Moderate pulmonary hypertension with a peak pulmonary artery systolic pressure of 62 mmHg. There is no pericardial effusion. There are no intracardiac masses. Compared to study from 05/25/2020, no significant change in the 2D findings. The pulmonary artery pressure estimation cannot be compared because of the differences in the technical quality Dr Hardy Ojeda MD [facility] (Electronically Signed) Final Date: 05 January 2023 10:08 S
--- NOTE | 2023-01-05 04:03 | ECG_ITS ---
[facility] Test Date: 2023-01-05 Pat Name: Nanda Roe Department: Room: 104 Gender: Female [place] Room Operator: : 1950 Requested By: Virginia Farrell Order Number: [id number] Bryce MD: Hardy Ojeda M.D. Measurements Intervals [place] Rate: 71 P: 43 MD: 146 QRS: -8 QRSD: 82 T: 74 QT: 388 QTc: 423 Interpretive Statements SINUS RHYTHM NONSPECIFIC ST & T-WAVE ABNORMALITY Compared to ECG 01/04/2023 23:56:26 T-wave abnormality now present Electronically Signed On 01-05-2023 22:19:34 [employer] by Hardy Ojeda M.D. [id number]
[2023-01-05] MEDS: nitroglycerin drip 50 MG/250 ML PREMIX IV (04:08)
[2023-01-05 04:22] LABS: Iron 54 ug/dL (37-145); Percent Saturation 20.3 % (20-50); Thyroid Stimulating Hormone 2.45 uIU/mL (0.27-4.20); Total Iron Binding Capacity 265 mcg/dl; Unsaturated Iron Binding 211 ug/dL (112-347); Vitamin B12 274 pg/mL (232-1245)
[2023-01-05 05:22] LABS: Troponin 5 6HR 53.17 ng/L (0-10)
[2023-01-05 05:30] LABS: Troponin 5 6HR Delta 31.17 ng/L (0-12)
[2023-01-05 06:09] LABS: Add Urine Microscopic? YES; Bilirubin Urine Neg (Negative); Blood Urine 2+ (Negative); Glucose Urine UA Norm (Normal); Ketones Urine 1+ (Negative); Leukocyte Esterase Urine Negative (Negative); Nitrate Urine Negative (Negative); Protein Urine 1+ (Negative); Specific Gravity, Urine 1.015 (1.005-1.030); Urine Appearance Clear (CLEAR); Urine Color Yellow (Yellow); Urobilinogen Urine Norm (Negative); pH Urine 6 (5-7)
[2023-01-05 06:10] LABS: Bacteria Urine TRACE /hpf
[2023-01-05 06:11] LABS: Add Urine Culture? No
[2023-01-05] MEDS: predniSONE 1 mg Tablet 6 MG PO (08:22)
[2023-01-05] MEDS: metoprolol tartrate 25 mg Tablet PO ×2 (08:22→18:01)
[2023-01-05] MEDS: FUROsemide 20 mg Tablet PO (08:22)
[2023-01-05] MEDS: aspirin 81 mg EC Tablet 162 MG PO (08:23)
--- NOTE | 2023-01-05 09:02 | PM.CONSULT ---
Providers/Reason For Consult Consulting Physician/Specialty*: POLO Ojeda MD/cardiology Reason for Consult*: Patient with chest pain and elevated troponin T Requesting Physician: Dr. Jade Attending Physician: Nathaly Jade MD Primary Care Provider: Alcon Ogden MD History of Present Illness History of Present Illness Nanda Roe is a 72 year old female This is a 71-year-old white male witha history of atherosclerotic heart disease and PCI's, presenting with a prolonged episode of chest pain. She was found to elevated troponin T. Cardiology consult is requested for further cardiac evaluation recommendations. This patient is known to have coronary disease and had the first PCI in 2014. She apparently had 2 stents at that time. In 2019, she had a repeat cardiac catheterization, followed by PCI with a 2 more stents. Since then, the patient has been doing okay with no significant symptoms. She is known to have severe allergic reaction to Plavix causing severe leukopenia. She also has some intolerance to Brilinta after taking it for a while. Since her last coronary intervention, she has been doing okay with no significant chest pain or palpitations. No unusual shortness of breath. Yesterday afternoon, while she was at home, started having pain in the mid substernal region. The pain does radiate to the back between the shoulder blades associated with some shortness of breath. She has no palpitations. No nausea vomiting. No dizziness or syncopal episodes. The patient lasted for several hours. Even now, at the time of examination, patient has some symptoms-pain of 2-3/10, with exertion. No chest pain at rest no other associated symptoms or radiation of pain. Patient used to live in [place]. She moved to this area 2 years ago or so. She has a history of hypertension(accelerated), dyslipidemia, lupus, multiple compression fractures of the spine, Lost around 4 inches of height, lung shrinking syndrome, COVID-19 pneumonia. Denies any smoking abuse or alcohol abuse. She has not had a functional evaluation of the coronary status since 2019. Had discussions about a stress test in the past but she did not want to do it Review of Systems Narrative: CONSTITUTIONAL: No fever or chills. EYES: No blurring of vision or other visual disturbances lately. ENT: No hoarseness of voice, auditory disturbances or sore throat. CARDIOVASCULAR: As mentioned above. RESPIRATORY: No significant cough. GASTROINTESTINAL: No hematemesis or melena. GENITOURINARY: No dysuria or hematuria. INTEGUMENTARY: No skin rashes or history of skin cancer. NEURO: No transient ischemic attacks or amaurosis. PSYCHIATRIC: No history of psychosis or major depression. HEMATOLOGIC: No bleeding disorders or significant anemia. ENDOCRINE: No history of polyuria or polydipsia. MUSCULOSKELETAL: No recent joint pain or swelling. ALLERGY/IMMUNOLOGY: As mentioned above. Medications/Allergies Home Medications Medication Instructions Recorded Confirmed Last Taken Type aspirin 81 mg tablet,delayed 81 mg PO QAM 05/04/21 01/05/23 Unknown History release (Adult Low Dose Aspirin) mupirocin 2 % topical ointment 1 applic topical BID PRN Itching 08/14/21 01/05/23 Unknown History evolocumab 140 mg/mL subcutaneous 140 mg SUBCUT Q14D 10/29/22 01/05/23 12/31/22 History syringe (Repatha Syringe) metoprolol tartrate 25 mg tablet 25 mg PO BID #180 tabs 10/29/22 01/05/23 Unknown Rx prednisone 1 mg tablet See Rx Instructions .Route .COMPLEX 10/29/22 01/05/23 Unknown History coenzyme Q10 100 mg capsule 100 mg PO DAILY 01/05/23 01/05/23 Unknown History (CoQ-10) dorzolamide 22.3 mg-timolol 6.8 See Rx Instructions .Route .COMPLEX 01/05/23 01/05/23 Unknown History mg/mL eye drops furosemide 20 mg tablet 20 mg PO QAM 01/05/23 01/05/23 Unknown History magnesium oxide 400 mg PO DAILY 01/05/23 01/05/23 Unknown History potassium chloride 10 mEq 10 meq PO EVERY OTHER DAY 01/05/23 01/05/23 Unknown History tablet,extended release (Klor-Con) prednisolone acetate 1 % eye See Rx Instructions .Route .COMPLEX 01/05/23 01/05/23 Unknown History drops,suspension Allergies Allergy/AdvReac Type Severity Reaction Status Date / Time amlodipine Allergy leg Verified 01/01/23 15:04 swelling azathioprine [From Imuran] Allergy Unknown Verified 01/01/23 15:04 ciprofloxacin Allergy Unknown Verified 01/01/23 15:04 clindamycin Allergy Unknown Verified 01/01/23 15:04 clonidine Allergy lungs and Verified 01/01/23 15:04 skin clopidogrel [From Plavix] Allergy stopped Verified 01/01/23 15:04 producing white blood cells hydrochlorothiazide Allergy Unknown Verified 01/01/23 15:04 [From Avalide] irbesartan [From Avalide] Allergy Unknown Verified 01/01/23 15:04 lisinopril Allergy Unknown Verified 01/01/23 15:04 methotrexate Allergy Unknown Verified 01/01/23 15:04 nebivolol [From Bystolic] Allergy ALGY-Rash Verified 01/01/23 15:04 oxycodone Allergy Unknown Verified 01/01/23 15:04 Penicillins Allergy extreme Verified 01/01/23 15:04 swelling spironolactone Allergy ADR-Abdominal Verified 01/01/23 15:04 Pain Sulfa (Sulfonamide Allergy Unknown Verified 01/01/23 15:04 Antibiotics) valsartan [From Diovan] Allergy Unknown Verified 01/01/23 15:04 diclofenac [From Voltaren] AdvReac Intermediate ADR/ALGY-Pa Verified 01/01/23 15:04 lpitations ticagrelor [From Brilinta] AdvReac Unknown Verified 01/01/23 15:04 Current Medications Generic Name Dose Route Start Last Admin Trade Name Freq PRN Reason Stop Dose Admin Amlodipine Besylate 10 mg 01/05/23 09:00 01/05/23 08:12 Amlodipine 10 Mg Tablet PO Not Given DAILY DEE Aspirin 162 mg 01/05/23 09:00 01/05/23 08:23 Aspirin 81 Mg Ec Tablet PO 162 mg DAILY DEE Administration Enoxaparin Sodium 60 mg 01/05/23 02:45 01/05/23 04:53 Enoxaparin 100 Mg/Ml Syringe 1 mg/kg (60 mg) Not Given SUBCUT Q12H DEE Furosemide 20 mg 01/05/23 09:00 01/05/23 08:22 Furosemide 20 Mg Tablet PO 20 mg DAILY DEE Administration Nitroglycerin/Dextrose 50 mg in 250 mls @ 0 mls/hr 01/05/23 03:30 01/05/23 08:12 Nitroglycerin Drip IV 5 mcg/min .Q0M DEE 1.5 mls/hr Titration Protocol Per Protocol Metoprolol Tartrate 25 mg 01/05/23 09:00 01/05/23 08:22 Metoprolol Tartrate 25 Mg Tablet PO 25 mg BID DEE Administration Pantoprazole Sodium 40 mg 01/05/23 03:30 01/05/23 05:06 Pantoprazole 40 Mg Sdv IVP Not Given Q24H COUNTS INCLUDE 234 BEDS AT THE [facility] Prednisone 6 mg 01/05/23 06:00 01/05/23 08:22 Prednisone 1 Mg Tablet PO 6 mg QAM DEE Administration PFSH Acute PFSH: Medical History Acute kidney injury Chronic steroid use Fibromyalgia HTN (hypertension) Hyperlipidemia Intertrigo Rib fracture Seborrheic keratosis 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) Surgical History History of coronary artery stent placement x2 2014, x2 2019 at [facility] Social History Smoking and tobacco/nicotine status: former use of tobacco/nicotine Quit status (tobacco/nicotine): has quit using Year quit tobacco: 1987 [id number] Second hand smoke exposure: No Alcohol intake: never Substance/Drug Use: never Lives independently: Yes Household members: spouse and children Housing: House Marital status: Current occupational status: disabled Pets and animals: No Do you think of yourself as: Straight/Heterosexual Current gender identity: Female Vitals/I&O/Wt Last Vital Signs Temp 98.0 F 01/05/23 08:00 Pulse 84 01/05/23 08:00 Resp 16 01/05/23 08:00 BP 204/93 01/05/23 08:00 Pulse Ox 100 01/05/23 08:00 O2 Del Method Nasal Cannula 01/05/23 08:00 O2 Flow Rate 2 01/05/23 06:09 01/04/23 01/05/23 01/05/23 22:59 06:59 14:59 Intake Total 122.975 / 122.975 0 / 0 Balance 122.975 / 122.975 0 / 0 Weight last 48 hrs Weight 157 lb Weight 157 lb Weight 142 lb Physical Exam Narrative: GENERAL: The patient is alert and oriented times three. Not in any acute distress. HEENT: No significant pallor, icterus or lymphadenopathy.Oral cavity: There are no mucous membrane lesions. NECK: Trachea appears to be central. No masses noted. No JVD or thyromegaly appreciated. RESPIRATORY: Seems to have severe kyphoscoliosis no intercostals muscle retraction or any accessory muscle activation. There is no chest wall tenderness. Breath sounds are heard bilaterally. No rales or rhonchi heard. No evidence of any consolidation. BREASTS: Deferred. HEART: The heart sounds are normal. No S3 or S4. No significant murmurs. No pericardial rub ABDOMEN: No vessel pulsations or distention. No tenderness. No organomegaly appreciated. Bowel sounds are normally heard. : Deferred. RECTAL: Deferred. LYMPHATIC: No lymphadenopathy noted in the neck. EXTREMITIES: No edema or cyanosis. No clubbing. MUSCULOSKELETAL: No acute joint deformities or swelling SKIN: There are no significant rashes or ecchymosis NEUROPSYCHIATRIC: The patient is alert and oriented x3. Appears to be in a good mood. No tremors or rigidity noted. Data 01/04/23 22:20 01/04/23 22:20 Other Labs: Laboratory Last Values WBC 10.54 10^3/uL (3.29-11.43) 01/04/23 22:20 RBC 4.26 10^6/uL (3.85-5.65) 01/04/23 22:20 Hgb 13.00 g/dL (11.27-16.99) 01/04/23 22:20 Hct 42.0 % (36-47) 01/04/23 22:20 MCV 98.6 fl (85-98) H 01/04/23 22:20 MCH 30.5 pg (27-33) 01/04/23 22:20 MCHC 31.0 g/dL (30-55) 01/04/23 22:20 RDW 13.6 % (12.1-15.1) 01/04/23 22:20 Plt Count 201 10^3/cmm (157-399) 01/04/23 22:20 MPV 10.9 fL (7.4-10.4) H 01/04/23 22:20 Neut % (Auto) 76.9 % 01/04/23 22:20 Lymph % (Auto) 11.1 % 01/04/23 22:20 [place] % (Auto) 8.7 % 01/04/23 22:20 Eos % (Auto) 1.9 % 11/18/23 22:20 Baso % (Auto) 0.4 % 01/04/23 22:20 Neut # (Auto) 8.10 10^3/uL (1.8-7.7) H 01/04/23 22:20 Lymph # (Auto) 1.2 10^3/uL (0.8-4.8) 01/04/23 22:20 [place] # (Auto) 0.9 10^3/uL (0.2-0.9) 01/04/23 22:20 Eos # (Auto) 0.2 10^3/uL (0.0-0.8) 01/04/23 22:20 Baso # (Auto) 0.0 10^3/uL (0.0-0.1) 01/04/23 22:20 Nucleated RBC % (auto) 0 % 01/04/23 22:20 Nucleated RBCs # 0.0 /100WBC 01/04/23 22:20 Sodium 145 mmol/L (136-145) 01/04/23 22:20 Potassium 4.2 mmol/L (3.5-5.1) 01/04/23 22:20 Chloride 104 mmol/L (98-107) 01/04/23 22:20 Carbon Dioxide 34 mmol/L (22-29) H 01/04/23 22:20 Anion Gap 11.2 (5-19) 01/04/23 22:20 BUN 23 mg/dL (8-23) 01/04/23 22:20 Creatinine 0.9 mg/dL (0.5-0.9) 01/04/23 22:20 GFR Calculation Not Reportable 01/04/23 22:20 Glucose 121 mg/dL (65-115) H 01/04/23 22:20 Calculated Osmolality 305 mOsm/kg (285-295) H 01/04/23 22:20 Calcium 9.2 mg/dL (8.5-10.5) 01/04/23 22:20 Iron 54 ug/dL (37-145) 01/05/23 00:16 TIBC 265 mcg/dl 01/05/23 00:16 % Saturation 20.3 % (20-50) 01/05/23 00:16 Unsat Iron Binding 211 ug/dL (112-347) 01/05/23 00:16 Total Bilirubin 0.4 mg/dL (0.15-1.2) 01/04/23 22:20 AST 16 U/L (0-32) 01/04/23 22:20 ALT 17 U/L (0-33) 01/04/23 22:20 Alkaline Phosphatase 87 U/L (35-105) 01/04/23 22:20 Troponin T Baseline 22 ng/L (0-10) H 01/04/23 22:20 Troponin T 120 Minute 43.96 ng/L (0-10) H 01/05/23 00:16 Delta Troponin T 21.96 ABS# (0-10) H* 01/05/23 00:16 Troponin T Hi Sens 6Hr 53.17 ng/L (0-10) H 01/05/23 04:41 Troponin T Hi Sens 6Hr Delta 31.17 ng/L (0-12) H* 01/05/23 04:41 NT-Pro-B Natriuret Pep 2762 pg/mL (0-125) H 01/04/23 22:20 Total Protein 6.4 g/dL (6.6-8.7) L 01/04/23 22:20 Albumin 4.1 g/dL (3.5-5.2) 01/04/23 22:20 Globulin 2.3 g/dL (1.3-4.6) 01/04/23 22:20 Vitamin B12 274 pg/mL (232-1245) 01/05/23 00:16 TSH 2.45 uIU/mL (0.27-4.20) 01/05/23 00:16 Urine Color Yellow (Yellow) 01/05/23 05:00 Urine Appearance Clear (CLEAR) 01/05/23 05:00 Urine pH 6 (5-7) 01/05/23 05:00 Ur Specific [place] 1.015 (1.005-1.030) 01/05/23 05:00 Urine Protein 1+ (Negative) H 01/05/23 05:00 Urine Glucose (UA) Norm (Normal) 01/05/23 05:00 Urine Ketones 1+ (Negative) H 01/05/23 05:00 Urine Blood 2+ (Negative) H 01/05/23 05:00 Urine Nitrate Negative (Negative) 01/05/23 05:00 Urine Bilirubin Neg (Negative) 01/05/23 05:00 Urine Urobilinogen Norm mg/dL (Negative) 01/05/23 05:00 Ur Leukocyte Esterase Negative (Negative) 01/05/23 05:00 Urine RBC 5-10 /hpf (0-2) H 01/05/23 05:00 Urine WBC None /hpf (0-5) 01/05/23 05:00 Ur Squamous Epith Cells 5-10 /hpf (0-5) H 01/05/23 05:00 Amorphous Sediment Not Reportable 01/05/23 05:00 Urine Bacteria Trace /hpf (NONE) 01/05/23 05:00 Echo: My impression: Echocardiogram done today, 01/05/2023 Normal left ventricular size and systolic function, EF 77 %. ?Moderate left ventricular hypertrophy. Grade I/IV diastolic ?dysfunction (abnormal relaxation filling pattern), normal to ?mildly elevated filling pressures. ?Moderate mitral annular calcification. Thickened mitral valve. ?Thickened aortic valve. ?Trace tricuspid valve regurgitation.? Moderate pulmonary ?hypertension with a peak pulmonary artery systolic pressure of ?62 mmHg. ?There is no pericardial effusion. ?There are no intracardiac masses. ?Compared to study from 05/25/2020, no significant change in the 2D ?findings.? The pulmonary artery pressure estimation cannot be ?compared because of the differences in the technical qualit A&P Assessment and plan (1) Non-ST elevated myocardial infarction (non-STEMI): Patient's symptoms are mostly gone. The possibility of progression of disease in the [place] vessels versus stent stenosis are considerations. She will be treated with a heparin, aspirin, Brilinta, statin, beta-helen and other symptomatic measures. She had an echocardiogram today which revealed normal LV size ejection fraction with no significant wall motion normalities. She had moderate pulmonary hypertension-possibly due to lung [place] syndrome (2) SLE (systemic lupus erythematosus related syndrome): May continue on the current management (3) Hyperlipidemia: Continue on the current treatment Qualifiers: Hyperlipidemia type: unspecified Qualified Code(s): E78.5 - Hyperlipidemia, unspecified (4) Diastolic heart failure: Currently compensated. Qualifiers: Heart failure chronicity: chronic Qualified Code(s): I50.32 - Chronic diastolic (congestive) heart failure (5) Pulmonary hypertension: May continue on the current medications for the time being (6) Accelerated hypertension: Currently the blood pressure use of stage II. We will try to optimize antihypertensive medications. Plan Based on the results of the above tests and the patient's clinical progress, further recommendations will be made. We may consider a cardiac catheterization to reevaluate the coronary arteries and then decide on further management. I may start her on Brilinta 90 mg p.o. twice daily. Based on the clinical progress, further recommendations will be made. Thank you for the opportunity to evaluate this patient and make these recommendations Consult Attestations Medical Necessity Statement: Patient requires continued hospital stay for close monitoring and further management Coding Level of Care Code 80113 Diagnoses Non-ST elevated myocardial infarction (non-STEMI) I21.4 SLE (systemic lupus erythematosus related syndrome) M32.9 Hyperlipidemia E78.5 Hyperlipidemia type: unspecified Diastolic heart failure I50.32 Heart failure chronicity: chronic Pulmonary hypertension I27.20 Accelerated hypertension I10
--- NOTE | 2023-01-05 10:08 | PM.MISC ---
Miscellaneous Note Note: Patient is chest pain-free Blood pressure was high nitroglycerin drip was restarted No active chest pain Patient and family wanted to get angiogram in different hospital however after family meetings the decided to discuss with Dr. Ojeda and stay in the hospital, stating that they were at [facility] where there was one vessel which was 80 to 90% stenosed not amenable to intervention and CABG was recommended and she was given few years to live She is chest pain free Currently on nitroglycerin drip Euvolemic Sitting at the bedside GCS 15 Abdomen soft We will follow-up with cardiology Patient is DNR/DNI
--- NOTE | 2023-01-05 10:18 | PC.PHAR ---
PT STATES SHE TAKES CARE OF HER OWN MEDICATIONS-PT STATES SHE TAKES LASIX 20MG QAM RX FILLED 10/29/22 90D/S 20MG BID-PT STATES SHE EATS BANANAS EVERYDAY SO SHE STATES SHE TAKES HER KCL 10MEQ EVERY OTHER DAY RX FILLED 10/28/22 90D/S 10MEQ DAILY-PT STATES SHE IS DUE TO GET HER REPATHA INJECTION 01/14/23-
[2023-01-05] MEDS: enoxaparin 100 mg/mL Syringe 60 MG SUBCUT (16:25)
[2023-01-05] MEDS: isosorbide dinitrate 20 mg Tablet PO (18:01)
[2023-01-05] MEDS: ticagrelor 90 mg Tablet PO (18:01)
[2023-01-05] MEDS: predniSONE 5 mg Tablet 2 MG PO (18:01)
[2023-01-05] MEDS: ondansetron 2 mg/ML SDV 2 mL 4 MG IVP (21:13)
[2023-01-06] VITALS (53 sets, daily range): BP systolic 116–173; BP diastolic 44–69; PULSE 63–96; RESP 14–34; TEMP 36.6–37.3; O2SAT 88–100
[2023-01-06] MEDS: enoxaparin 100 mg/mL Syringe 60 MG SUBCUT (03:04)
[2023-01-06 04:21] LABS: Basophils % 0.3 %; Eosinophils # 0.2 10^3/uL (0.0-0.8); Hematocrit 37.9 % (36-47); Lymphocytes # 1.3 10^3/uL (0.8-4.8); Lymphocytes % 15.4 %; Mean Corpuscular HGB Conc 30.9 g/dL (30-55); Mean Corpuscular Hemoglobin 30.5 pg (27-33); Mean Platelet Volume 11.1 fL (7.4-10.4); Monocytes # 0.8 10^3/uL (0.2-0.9); Monocytes % 9.1 %; Neutrophils # 6.22 10^3/uL (1.8-7.7); Neutrophils % 71.9 %; Nucleated Red Blood Cells % 0 %; Platelet Count 178 10^3/cmm (157-399); Red Blood Count 3.83 10^6/uL (3.85-5.65); Red Cell Distribution Width 13.8 % (12.1-15.1); White Blood Count 8.65 10^3/uL (3.29-11.43)
[2023-01-06 04:38] LABS: Chol HDL Ratio 1.59 mg/dL (0.0-4.40); Cholesterol 100 mg/dL (0-200); HDL Cholesterol 63 mg/dL (60-100); LDL Cholesterol Calculated 14 mg/dL (50-129); LDL HDL Ratio 0.22 RATIO (0.00-3.22); Triglycerides 115 mg/dL (0-150)
[2023-01-06 04:43] LABS: Alanine Aminotransferase 15 U/L (0-33); Albumin Level 3.7 g/dL (3.5-5.2); Alkaline Phosphatase 71 U/L (35-105); Anion Gap 13.1 (5-19); Aspartate Amino Transferase 18 U/L (0-32); Blood Urea Nitrogen 23 mg/dL (8-23); Calcium 8.8 mg/dL (8.5-10.5); Carbon Dioxide 33 mmol/L (22-29); Chloride 102 mmol/L (98-107); Globulin 2.4 g/dL (1.3-4.6); Glucose 89 mg/dL (65-115); Osmolality Calculated 301 mOsm/kg (285-295); Phosphorus 2.5 mg/dL (2.5-4.5); Potassium 4.1 mmol/L (3.5-5.1); Sodium 144 mmol/L (136-145); Total Bilirubin 0.6 mg/dL (0.15-1.2); Total Protein 6.1 g/dL (6.6-8.7)
[2023-01-06 04:57] LABS: Estmated Average Glucose 108; Hemoglobin A1C 5.4 % (4.0-6.0)
[2023-01-06 04:59] LABS: Folate Level 3.4 ng/mL (4.8-37.3)
[2023-01-06] MEDS: predniSONE 1 mg Tablet 6 MG PO (06:08)
[2023-01-06] MEDS: isosorbide dinitrate 20 mg Tablet PO ×2 (08:44→18:09)
[2023-01-06] MEDS: metoprolol tartrate 25 mg Tablet PO ×2 (08:44→18:09)
--- NOTE | 2023-01-06 11:22 | PC.NURSE ---
pt wants to take her oral meds later on when doctor sees here.
--- NOTE | 2023-01-06 12:36 | PM.PN ---
Subjective Subjective: 72 yo woman with PMHx of coronary disease with PCI in 2015 ( 2 stents at that time) and another PCI with 2 more stents in 2019, history of hypertension(accelerated), dyslipidemia, lupus, multiple compression fractures of the spine, shrinking lung syndrome, osteoporosis, chronic prednisone use, obesity, chronic respiratory failure, HFpEF, PIERRE, gout and h/o fractures and COVID-19 pneumonia.? She is known to have severe allergic reaction to Plavix causing severe leukopenia.? She was admitted with retrosternal chest pain described as someone sitting on her chest. Troponin T increased from 22--> 50's. Normal LV function and no RWMA on echo and non specific ST-T wave changes on EKG. Sub: c/o mild right sided CP , URI like symptoms with sinusitis, cough for last 3 days. some leg swelling today. recieved lasix late in the day today. No arrhythmias on telemetry Medications: Reviewed: Yes Vitals/I&O/Wt Last Vital Signs Temp 98.0 F 01/06/23 08:00 Pulse 79 01/06/23 08:00 Resp 16 01/06/23 08:00 BP 173/69 01/06/23 08:00 Pulse Ox 97 01/06/23 08:00 O2 Del Method Nasal Cannula 01/06/23 08:00 O2 Flow Rate 2 01/06/23 08:00 01/05/23 01/06/23 01/06/23 22:59 06:59 14:59 Intake Total 379.125 / 619.125 Balance 379.125 / 219.125 Weight last 48 hrs Weight 157 lb Weight 157 lb Weight 157 lb Weight 142 lb Physical Exam Const: COMMON NORMALS: no acute distress, patient oriented x3 and alert GENERAL APPEARANCE: cooperative, comfortable, well kempt and well hydrated OTHER: coughing during exam HENMT: COMMON NORMALS: hearing grossly normal bilaterally and external ears normal FACE & SINUS: normal facial exam EXTERNAL EAR: Yes external ears normal Eye: COMMON NORMALS: EOMs intact bilaterally and no scleral icterus GENERAL EYE: appearance normal, both eyes and all related structures ALIGNMENT: Yes alignment normal Neck/C-Spine: COMMON NORMALS: supple and no JVD GENERAL: Yes normal visual inspection CAROTIDS: Yes normal carotid upstroke Chest: COMMONS NORMALS: normal inspection of the chest and normal palpation of entire chest wall CHEST: Yes Symmetrical chest wall rise and No tenderness Resp: COMMON NORMALS: clear to auscultation bilaterally (coarse breath sounds) AUSCULTATION: clear to auscultation bilaterally (coarse breath sounds), no crackles, no rales, no rhonchi and no wheezes Cardio: COMMON NORMALS: no JVD, regular rate, regular rhythm, S1 normal heart sound present, S2 normal heart sound present and Peripheral pulses 2+ throughout PALPATION: normal PMI RATE: regular rate RHYTHM: regular rhythm HEART SOUNDS: S1 normal heart sound present, S2 normal heart sound present and no murmurs BRUITS: no carotid bruits PERIPHERAL PULSES: Peripheral pulses 2+ throughout, radial pulses present, posterior tibial pulses present and dorsalis pedis present GI: COMMON NORMALS: Soft to palpation AUSCULTATION: Yes normoactive bowel sounds PALPATION: Yes Soft to palpation, No Tenderness to palpation present (GI), No Guarding due to palpation present (GI) and No Rigid due to palpation Extremity: GENERAL: No cyanosis, Yes edema (trace) and No pallor Neuro: COMMON NORMALS: patient oriented x3, CN's II-XII intact bilaterally and no focal motor deficits SENSORIUM/ORIENTATION: Yes alert Psych: COMMON NORMALS: Normal thought process present and speech normal APPEARANCE: Yes well kempt SPEECH: Yes normal speech MOOD & AFFECT: Yes euthymic mood THOUGHT PROCESS: Normal thought process present THOUGHT CONTENT: Yes Normal thought content present Data 01/06/23 03:29 01/06/23 03:29 A&P Assessment and plan (1) Non-ST elevated myocardial infarction (non-STEMI): Plan for LHC in morning This was discussed with the patient and she is agreeable with the plan -NPO after MN -will need to reverse DNR/DNI for the procedure -Case was discussed with youth services specialist and plan is to proceed with the procedure in morning (2) CAD (coronary artery disease): Qualifiers: Coronary Disease-Associated Artery/Lesion type: unspecified vessel or lesion type [place] vs. transplanted heart: [place] heart Associated angina: with unspecified angina Qualified Code(s): I25.119 - Atherosclerotic heart disease of [place] coronary artery with unspecified angina pectoris (3) Accelerated hypertension: BP better controlled (4) Hyperlipidemia: Qualifiers: Hyperlipidemia type: unspecified Qualified Code(s): E78.5 - Hyperlipidemia, unspecified (5) Oxygen dependent: (6) Chronic steroid use: Plan URI h/o lupus Osteoporosis Attestations Medical Necessity Statement*: needs hospital stay for NSTEMI Time Spent in Patient Care: 16 - 35 minutes (>than 50% of time spent in counselling and/or direct pt care on unit). Coding Level of Care Code Acute Code for [facility] Fwd Diagnoses Non-ST elevated myocardial infarction (non-STEMI) I21.4 CAD (coronary artery disease) I25.119 Coronary Disease-Associated Artery/Lesion type: unspecified vessel or lesion type [place] vs. transplanted heart: [place] heart Associated angina: with unspecified angina Accelerated hypertension I10 Hyperlipidemia E78.5 Hyperlipidemia type: unspecified Oxygen dependent Z99.81 Chronic steroid use
[2023-01-06] MEDS: aspirin 81 mg Chew Tablet PO (13:11)
[2023-01-06] MEDS: FUROsemide 20 mg Tablet PO (13:11)
[2023-01-06] MEDS: ticagrelor 90 mg Tablet PO ×2 (13:11→18:09)
[2023-01-06] MEDS: azithromycin 500 MG in sodium chloride 0.9% 250 ML 250 MG IV (13:11)
[2023-01-06] MEDS: ondansetron 2 mg/ML SDV 2 mL 4 MG IVP ×2 (14:21→23:33)
--- NOTE | 2023-01-06 15:10 | P.PN_ITS ---
Subjective Subjective: This morning. Patient has been n.p.o. overnight for cath this morning. She is waiting to see Dr. Hoffman. She says she has chronic sinus infections and is requesting a Z-Robbie at this time as she believes she is having another one now. at bedside, daughter at bedside. She is at baseline oxygen 2 L. Vitals/I&O/Wt Last Vital Signs Temp 98.0 F 01/06/23 08:00 Pulse 79 01/06/23 08:00 Resp 16 01/06/23 08:00 BP 128/66 01/06/23 13:03 Pulse Ox 95 01/06/23 13:03 O2 Del Method Nasal Cannula 01/06/23 08:00 O2 Flow Rate 2 01/06/23 08:00 01/06/23 01/06/23 01/06/23 06:59 14:59 22:59 Intake Total 250 / 250 Output Total 200 / 200 Balance 50 / 50 Weight last 48 hrs Weight 71.214 kg Weight 71.214 kg Weight 71.214 kg Weight 64.41 kg Physical Exam Narrative: General: No acute distress, AO x3, NC oxygen supplementation HEENT: pupils bilaterally equal and reactive Chest: Bilateral bronchial breath sounds all over lung connelly with occasional rhonchi, no crackles appreciated. CVS: S1-S2 regular, no murmurs, no tachycardia, no gallops, no rubs Abdomen: Soft, nontender, bowel sounds present, morbidly obese Neuro: No focal deficits, no facial deformity, AO x3 Data 01/06/23 03:29 01/06/23 03:29 A&P Assessment and plan (1) Accelerated hypertension: (2) Pulmonary hypertension: (3) Chronic steroid use: (4) Hypertensive urgency: (5) Non-ST elevated myocardial infarction (non-STEMI): (6) Hyperlipidemia: Qualifiers: Hyperlipidemia type: unspecified Qualified Code(s): E78.5 - Hyperlipidemia, unspecified (7) HTN (hypertension): (8) Diastolic heart failure: Qualifiers: Heart failure chronicity: chronic Qualified Code(s): I50.32 - Chronic diastolic (congestive) heart failure (9) Oxygen dependent: (10) CAD (coronary artery disease): Qualifiers: Coronary Disease-Associated Artery/Lesion type: unspecified vessel or lesion type [place] vs. transplanted heart: [place] heart Associated angina: with unspecified angina Qualified Code(s): I25.119 - Atherosclerotic heart disease of [place] coronary artery with unspecified angina pectoris Plan #NSTEMI #SLE #Hyperlipidemia #Diastolic heart failure #Pulmonary hypertension #Hypertension ? She is not really having chest pain anymore that she had when she first came in.? She says it is very mild pain in the right side of her chest which is intermittent.? Currently on ACS protocol. ? Echo reviewed.? Shows normal EF with moderate pulmonary hypertension. ? Brilinta started by cardiology. ? Cardiology on board ? Patient is currently n.p.o. for cath today.?? -Blood pressure high overnight into 200s.? At this point she is 128/71.? Patient declined the initiation of amlodipine due to peripheral edema. ? Continue metoprolol 25 twice daily. ? Lasix 20 daily ordered - Tessalon perles 200 TID PRN for cough - Continue isordil 20 bid - will start azithromycin 500 day 1, 250 daily x4 days DNR/DNI. ? On full dose Lovenox Attestations Medical Necessity Statement*: Awaiting angiogram Diagnoses Accelerated hypertension I10 Pulmonary hypertension I27.20 Chronic steroid use Hypertensive urgency I16.0 Non-ST elevated myocardial infarction (non-STEMI) I21.4 Hyperlipidemia E78.5 Hyperlipidemia type: unspecified HTN (hypertension) I10 Diastolic heart failure I50.32 Heart failure chronicity: chronic Oxygen dependent Z99.81 CAD (coronary artery disease) I25.119 Coronary Disease-Associated Artery/Lesion type: unspecified vessel or lesion type [place] vs. transplanted heart: [place] heart Associated angina: with unspecified angina
[2023-01-06] MEDS: enoxaparin 60 mg/0.6 mL Syringe SUBCUT (16:33)
[2023-01-06] MEDS: predniSONE 1 mg Tablet 2 MG PO (18:08)
[2023-01-07] VITALS (57 sets, daily range): BP systolic 88–130; BP diastolic 33–68; PULSE 63–110; RESP 11–30; TEMP 36.6–37.6; O2SAT 89–100
[2023-01-07] MEDS: pantoprazole 40 mg SDV IVP (04:04)
[2023-01-07 04:52] LABS: Basophils % 0.4 %; Eosinophils # 0.2 10^3/uL (0.0-0.8); Eosinophils % 2.5 %; Hematocrit 33.5 % (36-47); Lymphocytes # 1.4 10^3/uL (0.8-4.8); Lymphocytes % 16.5 %; Mean Corpuscular HGB Conc 30.1 g/dL (30-55); Mean Corpuscular Hemoglobin 29.8 pg (27-33); Mean Corpuscular Volume 98.8 fl (85-98); Mean Platelet Volume 10.6 fL (7.4-10.4); Monocytes # 0.8 10^3/uL (0.2-0.9); Monocytes % 9.9 %; Neutrophils # 5.79 10^3/uL (1.8-7.7); Neutrophils % 69.9 %; Nucleated Red Blood Cells % 0 %; Platelet Count 151 10^3/cmm (157-399); Red Blood Count 3.39 10^6/uL (3.85-5.65); Red Cell Distribution Width 13.8 % (12.1-15.1); White Blood Count 8.29 10^3/uL (3.29-11.43)
[2023-01-07] MEDS: predniSONE 1 mg Tablet 6 MG PO (05:46)
[2023-01-07 06:25] LABS: Blood Urea Nitrogen 23 mg/dL (8-23); Calcium 8.1 mg/dL (8.5-10.5); Carbon Dioxide 26 mmol/L (22-29); Chloride 103 mmol/L (98-107); Glucose 87 mg/dL (65-115); Magnesium 1.9 mg/dL (1.7-2.3); Osmolality Calculated 297 mOsm/kg (285-295); Sodium 142 mmol/L (136-145)
--- NOTE | 2023-01-07 09:05 | PC.NURSE ---
0830 Held precath meds and NS iv since cath is postphoned due to patient constant cough and dr Rocha visited, says cant stop coughing long enough for a cath. Dr Rocha spoke with Dr. Tirdao. Gave water to help assist in cough due to drainage from a sinus infection per patient.
[2023-01-07] MEDS: metoprolol tartrate 25 mg Tablet PO ×2 (09:10→17:29)
[2023-01-07] MEDS: isosorbide dinitrate 20 mg Tablet PO ×2 (09:14→17:29)
[2023-01-07] MEDS: FUROsemide 20 mg Tablet PO (09:14)
[2023-01-07] MEDS: aspirin 81 mg Chew Tablet PO (09:14)
[2023-01-07] MEDS: amlodipine 10 mg Tablet PO (09:14)
--- NOTE | 2023-01-07 09:31 | XRR_ITS ---
PROCEDURE INFORMATION: Exam: XR Chest Exam date and time: 01/07/2023 10:39 AM Age: 72 years old Clinical indication: Cough with hemorrhage; Prior surgery; Surgery date: 6+ months; Surgery type: Cardiac stents; Additional info: Cough up blood TECHNIQUE: Imaging protocol: Radiologic exam of the chest. Views: 1 view. COMPARISON: CR (CHEST, ) 01/04/2023 10:22 PM FINDINGS: Lungs: Mild diffuse interstitial prominence. Pleural spaces: Unremarkable. No pleural effusion. No pneumothorax. Heart/Mediastinum: See Vasculature finding. Vasculature: Mild cardiomegaly and uncoiling of the thoracic aorta each accentuated by the AP positioning. Bones/joints: Deformity from old rib fractures. XR/XR chest 1V portable [id number] IMPRESSION: No acute intrathoracic pathology.
[2023-01-07] MEDS: acetaminophen 325 mg Tablet 650 MG PO (09:35)
[2023-01-07] MEDS: ticagrelor 90 mg Tablet PO ×2 (09:38→17:29)
[2023-01-07 10:05] LABS: Procalcitonin 0.13 ng/mL (0-0.5)
--- NOTE | 2023-01-07 12:28 | P.PN_ITS ---
Subjective Subjective: seen today pt npo for cath however wont be going today due to coughing Vitals/I&O/Wt Last Vital Signs Temp 97.9 F 01/07/23 08:00 Pulse 68 01/07/23 12:20 Resp 17 01/07/23 12:20 BP 122/49 01/07/23 12:20 Pulse Ox 93 01/07/23 12:20 O2 Del Method Nasal Cannula 01/07/23 12:20 O2 Flow Rate 2 01/07/23 08:00 01/06/23 01/07/23 01/07/23 22:59 06:59 14:59 Intake Total 311 / 561 0 / 561 0 / 0 Output Total 600 / 800 0 / 800 0 / 0 Balance -289 / -239 0 / -239 0 / 0 Physical Exam Narrative: General: No acute distress, AO x3, NC oxygen supplementation, coughing continously Chest: Bilateral bronchial breath sounds all over lung connelly with occasional rhonchi, no crackles appreciated. CVS: S1-S2 regular, no murmurs, no tachycardia, no gallops, no rubs Abdomen: Soft, nontender, bowel sounds present, morbidly obese Neuro: No focal deficits, no facial deformity, Extremities: 1+ edema b/l Data 01/07/23 04:10 01/07/23 04:10 A&P Assessment and plan (1) Accelerated hypertension: (2) Pulmonary hypertension: (3) Chronic steroid use: (4) Hypertensive urgency: (5) Non-ST elevated myocardial infarction (non-STEMI): (6) Hyperlipidemia: Qualifiers: Hyperlipidemia type: unspecified Qualified Code(s): E78.5 - Hyperlipidemia, unspecified (7) HTN (hypertension): (8) Diastolic heart failure: Qualifiers: Heart failure chronicity: chronic Qualified Code(s): I50.32 - Chronic diastolic (congestive) heart failure (9) Oxygen dependent: (10) CAD (coronary artery disease): Qualifiers: Coronary Disease-Associated Artery/Lesion type: unspecified vessel or lesion type [place] vs. transplanted heart: [place] heart Associated angina: with unspecified angina Qualified Code(s): I25.119 - Atherosclerotic heart disease of [place] coronary artery with unspecified angina pectoris Plan #NSTEMI #Sinus congestion #Acute on chronic cough #SLE #Hyperlipidemia #Diastolic heart failure #Pulmonary hypertension #Hypertension ? She is not really having chest pain anymore that she had when she first came in.? She says it is very mild pain in the right side of her chest which is in termittent.? Currently on ACS protocol. ? Echo reviewed.? Shows normal EF with moderate pulmonary hypertension. ? Brilinta started by cardiology. Continue amlodipine, aspirin, Isordil, metoprolol tartrate ? Continue Lasix 20 daily, Protonix, prednisone. order lasix 20 mg x1 additional dose ? Cardiology on board - Tessalon perles 200 TID PRN for cough - continue azithromycin 500 daily. Order Benadryl as per patient's request. -Continue fluticasone nasal spray - Tentative Plan for cath in AM. Discsused with Dr. Hoffman - NPO at midnight again tonight - Check upper respiratory viral panel - Chest xray reviewed, no pneumonia - Check procal DNR/DNI. ? On full dose Lovenox Attestations Medical Necessity Statement*: Awaiting angiogram Diagnoses Accelerated hypertension I10 Pulmonary hypertension I27.20 Chronic steroid use Hypertensive urgency I16.0 Non-ST elevated myocardial infarction (non-STEMI) I21.4 Hyperlipidemia E78.5 Hyperlipidemia type: unspecified HTN (hypertension) I10 Diastolic heart failure I50.32 Heart failure chronicity: chronic Oxygen dependent Z99.81 CAD (coronary artery disease) I25.119 Coronary Disease-Associated Artery/Lesion type: unspecified vessel or l esion type [place] vs. transplanted heart: [place] heart Associated angina: with unspecified angina
[2023-01-07] MEDS: enoxaparin 60 mg/0.6 mL Syringe SUBCUT (14:38)
[2023-01-07] MEDS: FUROsemide 10 mg/mL SDV 2mL 20 MG IVP (14:40)
--- NOTE | 2023-01-07 17:12 | PM.PN ---
Subjective Subjective: She was having significant coughing fits this morning and could not go for [facility]. some right sided chest pains. No coughing at the time of exam. Medications: Reviewed: Yes Vitals/I&O/Wt Last Vital Signs Temp 97.9 F 01/07/23 08:00 Pulse 68 01/07/23 12:20 Resp 17 01/07/23 12:20 BP 122/49 01/07/23 12:20 Pulse Ox 93 01/07/23 12:20 O2 Del Method Nasal Cannula 01/07/23 12:20 O2 Flow Rate 2 01/07/23 08:00 01/07/23 01/07/23 01/07/23 06:59 14:59 22:59 Intake Total 0 / 561 0 / 0 Output Total 0 / 800 100 / 100 Balance 0 / -239 -100 / -100 Physical Exam Const: COMMON NORMALS: no acute distress, patient oriented x3 and alert GENERAL APPEARANCE: cooperative, comfortable, well kempt and well hydrated OTHER: frail appearing HENMT: COMMON NORMALS: hearing grossly normal bilaterally, external ears normal and moist oral mucous membranes FACE & SINUS: normal facial exam EXTERNAL EAR: Yes external ears normal MOUTH: lip normal Eye: COMMON NORMALS: EOMs intact bilaterally and no scleral icterus GENERAL EYE: appearance normal, both eyes and all related structures ALIGNMENT: Yes alignment normal Neck/C-Spine: COMMON NORMALS: no lymphadenopathy, supple and no JVD GENERAL: Yes normal visual inspection and Yes trachea midline CAROTIDS: Yes normal carotid upstroke Lymph: LYMPHATIC: no lymphadenopathy noted Chest: COMMONS NORMALS: normal inspection of the chest and normal palpation of entire chest wall CHEST: Yes Symmetrical chest wall rise and No tenderness Resp: COMMON NORMALS: clear to auscultation bilaterally (coarse breath sounds) EFFORT & INSPECTION: Yes able to speak in complete sentences, No tachypneic, No respiratory distress, No pursed lip breathing, No labored and No Actively coughing AUSCULTATION: clear to auscultation bilaterally (coarse breath sounds), no crackles, no rales, no rhonchi and no wheezes Cardio: COMMON NORMALS: no JVD, regular rate, regular rhythm, S1 normal heart sound present, S2 normal heart sound present and Peripheral pulses 2+ throughout PALPATION: normal PMI RATE: regular rate RHYTHM: regular rhythm HEART SOUNDS: S1 normal heart sound present, S2 normal heart sound present, no click, no gallops and no murmurs BRUITS: no carotid bruits PERIPHERAL PULSES: Peripheral pulses 2+ throughout, radial pulses present, posterior tibial pulses present and dorsalis pedis present GI: COMMON NORMALS: Soft to palpation AUSCULTATION: Yes normoactive bowel sounds PALPATION: Yes Soft to palpation, No Tenderness to palpation present (GI), No Guarding due to palpation present (GI) and No Rigid due to palpation PERCUSSION: tympanic to percussion Extremity: GENERAL: No clubbing, No cyanosis, Yes edema (1+) and No pallor Neuro: COMMON NORMALS: patient oriented x3, CN's II-XII intact bilaterally and no focal motor deficits SENSORIUM/ORIENTATION: Yes alert Psych: COMMON NORMALS: Normal thought process present and speech normal APPEARANCE: Yes well kempt SPEECH: Yes normal speech MOOD & AFFECT: Yes euthymic mood THOUGHT PROCESS: Normal thought process present THOUGHT CONTENT: Yes Normal thought content present Data 01/07/23 04:10 01/07/23 04:10 A&P Assessment and plan (1) Non-ST elevated myocardial infarction (non-STEMI): Plan for LHC in morning This was discussed with the patient and she is agreeable with the plan -NPO after MN -will need to reverse DNR/DNI for the procedure -Case was discussed with field investigator and plan is to proceed with the procedure in morning -contine ASA , brilinta, lovenox and metoprolol (2) CAD (coronary artery disease): Qualifiers: Coronary Disease-Associated Artery/Lesion type: unspecified vessel or lesion type [place] vs. transplanted heart: [place] heart Associated angina: with unspecified angina Qualified Code(s): I25.119 - Atherosclerotic heart disease of [place] coronary artery with unspecified angina pectoris (3) Accelerated hypertension: BP better controlled (4) Hyperlipidemia: Qualifiers: Hyperlipidemia type: unspecified Qualified Code(s): E78.5 - Hyperlipidemia, unspecified (5) Oxygen dependent: (6) Chronic steroid use: Plan URI : on abx HFpEF: will give one additional dose of lasix today h/o lupus Osteoporosis Attestations Medical Necessity Statement*: needs hospital stay for NSTEMI Time Spent in Patient Care: 16 - 35 minutes (>than 50% of time spent in counselling and/or direct pt care on unit). Coding Level of Care Code 92409 Diagnoses Non-ST elevated myocardial infarction (non-STEMI) I21.4 CAD (coronary artery disease) I25.119 Coronary Disease-Associated Artery/Lesion type: unspecified vessel or lesion type [place] vs. transplanted heart: [place] heart Associated angina: with unspecified angina Accelerated hypertension I10 Hyperlipidemia E78.5 Hyperlipidemia type: unspecified Oxygen dependent Z99.81 Chronic steroid use
[2023-01-07] MEDS: azithromycin 250 mg Tablet 500 MG PO (17:28)
[2023-01-07] MEDS: predniSONE 1 mg Tablet 2 MG PO (17:29)
--- NOTE | 2023-01-07 19:54 | PC.NURSE ---
Patient reports concern of not being able to lie flat for tomorrows possible LHC. Patient report increased SOB while lying flat.
[2023-01-07 22:09] LABS: Adenovirus Not Detected (NOT DETECT); Chlamydia Pneumoniae Not Detected (NOT DETECT); Coronavirus 229E,HKU1,NL63,OC4 Not Detected (NOT DETECT); Human Metapneumovirus Not Detected (NOT DETECT); Human Rhinovirus/Enterovirus Not Detected (NOT DETECT); Influenza A Not Detected (NOT DETECT); Influenza A H1 Not Detected (NOT DETECT); Influenza A H1-2009 Not Detected (NOT DETECT); Influenza A H3 Not Detected (NOT DETECT); Influenza B Not Detected (NOT DETECT); Mycoplasma Pneumoniae Not Detected (NOT DETECT); Parainfluenza Virus Type 1 Not Detected (NOT DETECT); Parainfluenza Virus Type 2 Not Detected (NOT DETECT); Parainfluenza Virus Type 3 Not Detected (NOT DETECT); Parainfluenza Virus Type 4 Detected (NOT DETECT); Respiratory Syncytial Virus A Not Detected (NOT DETECT); Respiratory Syncytial Virus B Not Detected (NOT DETECT); SARS-COV-2 Not Detected (NOT DETECT)
[2023-01-08] VITALS (57 sets, daily range): BP systolic 107–146; BP diastolic 39–67; PULSE 64–100; RESP 14–42; TEMP 36.4–37.3; O2SAT 93–100; BMI 36.5
[2023-01-08] MEDS: enoxaparin 60 mg/0.6 mL Syringe SUBCUT (03:43)
[2023-01-08] MEDS: predniSONE 1 mg Tablet 6 MG PO (03:43)
[2023-01-08] MEDS: pantoprazole 40 mg SDV IVP (03:43)
[2023-01-08 04:22] LABS: Basophils % 0.3 %; Eosinophils # 0.2 10^3/uL (0.0-0.8); Eosinophils % 2.1 %; Hematocrit 33.7 % (36-47); Lymphocytes # 1.4 10^3/uL (0.8-4.8); Mean Corpuscular Hemoglobin 30.1 pg (27-33); Mean Corpuscular Volume 100.6 fl (85-98); Mean Platelet Volume 11.1 fL (7.4-10.4); Monocytes # 0.8 10^3/uL (0.2-0.9); Monocytes % 8.9 %; Neutrophils # 6.27 10^3/uL (1.8-7.7); Nucleated Red Blood Cells % 0 %; Platelet Count 172 10^3/cmm (157-399); Red Blood Count 3.35 10^6/uL (3.85-5.65); Red Cell Distribution Width 13.8 % (12.1-15.1)
[2023-01-08 04:39] LABS: Anion Gap 11.8 (5-19); Blood Urea Nitrogen 27 mg/dL (8-23); Calcium 8.5 mg/dL (8.5-10.5); Carbon Dioxide 34 mmol/L (22-29); Chloride 99 mmol/L (98-107); Glucose 121 mg/dL (65-115); Magnesium 1.9 mg/dL (1.7-2.3); Osmolality Calculated 298 mOsm/kg (285-295); Potassium 3.8 mmol/L (3.5-5.1); Sodium 141 mmol/L (136-145)
[2023-01-08] MEDS: metoprolol tartrate 25 mg Tablet PO (08:21)
[2023-01-08] MEDS: ticagrelor 90 mg Tablet PO (08:21)
[2023-01-08] MEDS: isosorbide dinitrate 20 mg Tablet PO (08:22)
[2023-01-08] MEDS: FUROsemide 20 mg Tablet PO (08:22)
[2023-01-08] MEDS: aspirin 81 mg Chew Tablet PO (08:22)
[2023-01-08] MEDS: amlodipine 10 mg Tablet PO (08:22)
--- NOTE | 2023-01-08 08:57 | PC.SOCIAL ---
IMM Update pg 2 of IMM updated and reviewed w/ patient. Copy provided and copy dated, initialed and placed in chart.
--- NOTE | 2023-01-08 14:06 | PM.PN ---
Subjective Subjective: This is a 72-year-old female patient with a significant pulmonary history who was who was admitted with a possible ACS and lower respiratory tract infection. She has been managed with antibiotics and further testing turned out to be positive for para influenza. I saw her today this afternoon and she is still having pretty bad cough and it appears that she is unable to lay flat for more than couple of minutes. She herself is not very keen for going to have an angiogram procedure done today. Currently she is not having any chest pain. Her current complaint is a ongoing cough with some shortness of. Related to upper respiratory tract infection/parainfluenza. Medications: Medication Review Details: I reviewed her current a cardiac medications she is on appropriate medications for possible ACS Vitals/I&O/Wt Last Vital Signs Temp 98.2 F 01/08/23 11:47 Pulse 72 01/08/23 11:47 Resp 14 01/08/23 11:47 BP 107/49 01/08/23 11:47 Pulse Ox 100 01/08/23 11:47 O2 Del Method Nasal Cannula 01/08/23 11:47 O2 Flow Rate 2 01/08/23 08:50 01/07/23 01/08/23 01/08/23 22:59 06:59 14:59 Intake Total 360 / 360 200 / 560 Output Total 800 / 900 Balance -440 / -540 200 / -340 Weight last 48 hrs Weight 157 lb Physical Exam Narrative: Vitals are stable. Not within normal range. Pulse 82 regular. Blood pressure 119/76. HENMT: OTHER: Unremarkable. Eye: OTHER: Unremarkable Resp: OTHER: Decreased air entry at the bases. There are scattered expiratory wheezes. Cardio: OTHER: Normal sinus rhythm. Trace pedal edema. Normal first and second heart sounds. No added sounds. GI: OTHER: Abdominal soft nontender. Bowel sounds audible. Extremity: OTHER: Trace pedal edema bilaterally. Neuro: OTHER: Grossly intact. Skin: OTHER: Warm and dry. Data 01/08/23 03:33 01/08/23 03:33 Micro: Microbiology 01/07/23 19:30 Gram Stain - Final Sputum - Expectorated Sputum A&P Assessment and plan (1) Non-ST elevated myocardial infarction (non-STEMI): Plan 72-year-old female patient currently with respiratory tract infection/para influenza. She is also has possible symptoms of ACS. Currently completely asymptomatic from cardiac point of view. No ongoing angina or any active heart failure symptoms. With her current respiratory status and inability to lay flat for the procedure of coronary angiogram I recommend to continue her treatment for respiratory tract infection and we will arrange a coronary angiogram as an outpatient within the next week or so. In the meantime she will continue on her current cardiac medications. Attestations Medical Necessity Statement*: Respiratory infection and angina Coding Level of Care Code Acute Code for [facility] Diagnoses Non-ST elevated myocardial infarction (non-STEMI) I21.4 Time Spent (min) 30
--- NOTE | 2023-01-08 14:30 | PM.DCS ---
Discharge Providers Date of Admission: 01/05/23 02:25 Date of Discharge: January 08, 2023 Attending Provider at Admission: Maurice Ko MD Attending Provider at Discharge: Amrita Tirado MD Primary Care Provider: Alcon Ogden MD Diagnoses at Discharge Discharge Diagnosis (1) Non-ST elevated myocardial infarction (non-STEMI): Status: Acute Reason for Visit Reason for Visit: High BP 215/104 Hospital Course Hospital Course Nanda Roe is a 72 year old female with past medical history of ?CAD s/p stents x 2 in 2013 and then 2 stents in 10/2018, HTN, hyperlipidemia, questionable HOCM by history, SLE, h/o sarcoidosis, 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 During hospital stay she was placed on ACS protocol. isordil was started. Plan was to do angiogram however patient was also diagnosed with parainfluenza virus and had sinus congestion along with it. She herself stated that she is unable to lay flat and even tested it by laying flat. Patient had a very strong cough which lasted seconds to over a few minutes. Angiogram was deferred twice. Patient stated that she was not interested in having the procedure done since after testing laying flat she was unable to do it. She said the risk was too high in case she started coughing on the table. Shared decision-making was done with the patient. Fixed Income Director discussed with the patient and Dr. Brenner that she will come back as an outpatient at a later time for this. Patient to follow-up with her senior technical specialist Dr. Bonilla as an outpatient. She will be discharged home in stable condition on Zithromax 500 and asked to do supportive care. At this time patient is chest pain-free, vitals are stable. She will be discharged home in stable condition. Patient demonstrates understanding and is on board with the above plan. Lastly of note Brilinta was added to her medication regimen. Physical Exam Narrative: Vitals are stable. Not within normal range. Pulse 82 regular. Blood pressure 119/76. HENMT: OTHER: Unremarkable. Eye: OTHER: Unremarkable Resp: OTHER: Decreased air entry at the bases. There are scattered expiratory wheezes. Cardio: OTHER: Normal sinus rhythm. Trace pedal edema. Normal first and second heart sounds. No added sounds. GI: OTHER: Abdominal soft nontender. Bowel sounds audible. Extremity: OTHER: Trace pedal edema bilaterally. Neuro: OTHER: Grossly intact. Skin: OTHER: Warm and dry. Discharge Data Studies Completed and Pending Completed Studies During Hospitalization Category Date Time Status CXRP [XR chest 1V portable [id number]] Routine Exams 01/07/23 09:31 Completed XR chest 1V [id number] Stat Exams 01/04/23 22:02 Completed CV. echo complete* [id number] Routine Ultrasound 01/05/23 03:49 Completed Pending at discharge Category Date Time Status Sputum Culture and Gram Stain Stat Lab 01/07/23 19:30 Results Radiology Impressions Chest X-Ray 01/07/23 09:31 IMPRESSION: No acute intrathoracic pathology. Laboratory Results WBC 8.70 10^3/uL (3.29-11.43) 01/08/23 03:33 RBC 3.35 10^6/uL (3.85-5.65) L 01/08/23 03:33 Hgb 10.10 g/dL (11.27-16.99) L 01/08/23 03:33 Hct 33.7 % (36-47) L 01/08/23 03:33 MCV 100.6 fl (85-98) H 01/08/23 03:33 MCH 30.1 pg (27-33) 01/08/23 03:33 MCHC 30.0 g/dL (30-55) 01/08/23 03:33 RDW 13.8 % (12.1-15.1) 01/08/23 03:33 Plt Count 172 10^3/cmm (157-399) 01/08/23 03:33 MPV 11.1 fL (7.4-10.4) H 01/08/23 03:33 Neut % (Auto) 72.0 % 01/08/23 03:33 Lymph % (Auto) 16.0 % 01/08/23 03:33 [place] % (Auto) 8.9 % 01/08/23 03:33 Eos % (Auto) 2.1 % 01/08/23 03:33 Baso % (Auto) 0.3 % 01/08/23 03:33 Neut # (Auto) 6.27 10^3/uL (1.8-7.7) 01/08/23 03:33 Lymph # (Auto) 1.4 10^3/uL (0.8-4.8) 01/08/23 03:33 [place] # (Auto) 0.8 10^3/uL (0.2-0.9) 01/08/23 03:33 Eos # (Auto) 0.2 10^3/uL (0.0-0.8) 01/08/23 03:33 Baso # (Auto) 0.0 10^3/uL (0.0-0.1) 01/08/23 03:33 Nucleated RBC % (auto) 0 % 01/08/23 03:33 Nucleated RBCs # 0.0 /100WBC 01/08/23 03:33 Sodium 141 mmol/L (136-145) 01/08/23 03:33 Potassium 3.8 mmol/L (3.5-5.1) 01/08/23 03:33 Chloride 99 mmol/L (98-107) 01/08/23 03:33 Carbon Dioxide 34 mmol/L (22-29) H 01/08/23 03:33 Anion Gap 11.8 (5-19) 01/08/23 03:33 BUN 27 mg/dL (8-23) H 01/08/23 03:33 Creatinine 1.3 mg/dL (0.5-0.9) H 01/08/23 03:33 GFR Calculation Not Reportable 01/08/23 03:33 Glucose 121 mg/dL (65-115) H 01/08/23 03:33 Estimat Average Glucose 108 01/06/23 03:29 Hemoglobin A1c 5.4 % (4.0-6.0) 01/06/23 03:29 Calculated Osmolality 298 mOsm/kg (285-295) H 01/08/23 03:33 Calcium 8.5 mg/dL (8.5-10.5) 01/08/23 03:33 Phosphorus 2.5 mg/dL (2.5-4.5) 01/06/23 03:29 Magnesium 1.9 mg/dL (1.7-2.3) 01/08/23 03:33 Iron 54 ug/dL (37-145) 01/05/23 00:16 TIBC 265 mcg/dl 01/05/23 00:16 % Saturation 20.3 % (20-50) 01/05/23 00:16 Unsat Iron Binding 211 ug/dL (112-347) 01/05/23 00:16 Total Bilirubin 0.6 mg/dL (0.15-1.2) 01/06/23 03:29 AST 18 U/L (0-32) 01/06/23 03:29 ALT 15 U/L (0-33) 01/06/23 03:29 Alkaline Phosphatase 71 U/L (35-105) 01/06/23 03:29 Troponin T Baseline 22 ng/L (0-10) H 01/04/23 22:20 Troponin T 120 Minute 43.96 ng/L (0-10) H 01/05/23 00:16 Delta Troponin T 21.96 ABS# (0-10) H* 01/05/23 00:16 Troponin T Hi Sens 6Hr 53.17 ng/L (0-10) H 01/05/23 04:41 Troponin T Hi Sens 6Hr Delta 31.17 ng/L (0-12) H* 01/05/23 04:41 NT-Pro-B Natriuret Pep 2762 pg/mL (0-125) H 01/04/23 22:20 Total Protein 6.1 g/dL (6.6-8.7) L 01/06/23 03:29 Albumin 3.7 g/dL (3.5-5.2) 01/06/23 03:29 Globulin 2.4 g/dL (1.3-4.6) 01/06/23 03:29 Triglycerides 115 mg/dL (0-150) 01/06/23 03:29 Cholesterol 100 mg/dL (0-200) 01/06/23 03:29 LDL Cholesterol, Calc 14 mg/dL (50-129) L 01/06/23 03:29 HDL Cholesterol 63 mg/dL (60-100) 01/06/23 03:29 LDL/HDL Ratio 0.22 RATIO (0.00-3.22) 01/06/23 03:29 Cholesterol/HDL Ratio 1.59 mg/dL (0.0-4.40) 01/06/23 03:29 Vitamin B12 274 pg/mL (232-1245) 01/05/23 00:16 Folate 3.4 ng/mL (4.8-37.3) L 01/06/23 03:29 Procalcitonin 0.13 ng/mL (0-0.5) 01/07/23 04:10 TSH 2.45 uIU/mL (0.27-4.20) 01/05/23 00:16 Urine Color Yellow (Yellow) 01/05/23 05:00 Urine Appearance Clear (CLEAR) 01/05/23 05:00 Urine pH 6 (5-7) 01/05/23 05:00 Ur Specific [place] 1.015 (1.005-1.030) 01/05/23 05:00 Urine Protein 1+ (Negative) H 01/05/23 05:00 Urine Glucose (UA) Norm (Normal) 01/05/23 05:00 Urine Ketones 1+ (Negative) H 01/05/23 05:00 Urine Blood 2+ (Negative) H 01/05/23 05:00 Urine Nitrate Negative (Negative) 01/05/23 05:00 Urine Bilirubin Neg (Negative) 01/05/23 05:00 Urine Urobilinogen Norm mg/dL (Negative) 01/05/23 05:00 Ur Leukocyte Esterase Negative (Negative) 01/05/23 05:00 Urine RBC 5-10 /hpf (0-2) H 01/05/23 05:00 Urine WBC None /hpf (0-5) 01/05/23 05:00 Ur Squamous Epith Cells 5-10 /hpf (0-5) H 01/05/23 05:00 Amorphous Sediment Not Reportable 01/05/23 05:00 Urine Bacteria Trace /hpf (NONE) 01/05/23 05:00 Nasal Influ A H1 2009 PCR Not detected (NOT DETECT) 01/07/23 18:00 Adenovirus (PCR) Not detected (NOT DETECT) 01/07/23 18:00 C. pneumoniae DNA (PCR) Not detected (NOT DETECT) 01/07/23 18:00 Coronavirus 229E (PCR) Not detected (NOT DETECT) 01/07/23 18:00 Human Metapneumovir PCR Not detected (NOT DETECT) 01/07/23 18:00 Influenza A (H1) PCR Not detected (NOT DETECT) 01/07/23 18:00 Influenza A (H3) PCR Not detected (NOT DETECT) 01/07/23 18:00 Influenza Type A (PCR) Not detected (NOT DETECT) 01/07/23 18:00 Influenza Type B (PCR) Not detected (NOT DETECT) 01/07/23 18:00 M. pneumoniae (PCR) Not detected (NOT DETECT) 01/07/23 18:00 Parainfluenza 1 (PCR) Not detected (NOT DETECT) 01/07/23 18:00 Parainfluenza 2 (PCR) Not detected (NOT DETECT) 01/07/23 18:00 Parainfluenza 3 (PCR) Not detected (NOT DETECT) 01/07/23 18:00 Parainfluenza 4 (PCR) Detected (NOT DETECT) A 01/07/23 18:00 RSV Type A (PCR) Not detected (NOT DETECT) 01/07/23 18:00 RSV Type B (PCR) Not detected (NOT DETECT) 01/07/23 18:00 Entero/Rhino (PCR) Not detected (NOT DETECT) 01/07/23 18:00 SARS-CoV-2 (PCR) Not detected (NOT DETECT) 01/07/23 18:00 Vitals Last Vital Signs Temp 98.2 F 01/08/23 11:47 Pulse 100 01/08/23 14:00 Resp 14 01/08/23 11:47 BP 107/49 01/08/23 11:47 Pulse Ox 100 01/08/23 11:47 O2 Del Method Nasal Cannula 01/08/23 11:47 O2 Flow Rate 2 01/08/23 08:50 Discharge Plan Discharge Patient Disposition: Home Condition: Stable Prescriptions: New Brilinta 90 mg Tablet 90 mg PO BID Qty: 60 0RF azithromycin [Zithromax] 500 mg tablet 500 mg PO DAILY 5 Days Qty: 5 0RF isosorbide dinitrate 20 mg Tablet 20 mg PO BID Qty: 30 0RF Continued mupirocin 2 % ointment 1 applic topical BID PRN (Reason: Itching) prednisone 1 mg tablet See Rx Instructions .ROUTE .COMPLEX Rx Instructions: 6mg po qam and 2mg po in the pm (takes doses 12 hours apart) metoprolol tartrate 25 mg tablet 25 mg PO BID Qty: 180 2RF Repatha Syringe 140 mg/mL syringe 140 mg SUBCUT Q14D Rx Instructions: due to get 01/14/23 aspirin [Adult Low Dose Aspirin] 81 mg tablet,delayed release (DR/EC) 81 mg PO QAM furosemide 20 mg tablet 20 mg PO QAM prednisolone acetate 1 % drops,suspension See Rx Instructions .ROUTE .COMPLEX Rx Instructions: INSTILL 1-2 DROPS INTO LEFT EYE EVERY 4 HOURS NEEDED FOR PAIN DIRECTED dorzolamide-timolol 22.3-6.8 mg/mL drops See Rx Instructions .ROUTE .COMPLEX Rx Instructions: use as directed as needed CoQ-10 100 mg Capsule 100 mg PO DAILY magnesium oxide 400 mg magnesium Tablet 400 mg PO DAILY Klor-Con 10 10 mEq tablet extended release 10 meq PO EVERY OTHER DAY Discharge Orders: Discharge Order (Routine); Ordered 01/08/23 Ordered By: Amrita Tirado Referrals: Alcon Ogden MD [Primary Care Provider] - 4-7 days (Follow up 01/13/2023 @ 1:00PM) Luly Hoffman MD [Physician] - 1 week (Follow up 01/16/2023 @ 10:00AM) Discharge Diet: Cardiac and Diabetic Discharge Activity: Resume usual activity and Oxygen as instructed Patient Instructions: Opioid Safety, Pain Management Activity Restrictions/Additional Instructions: Please return to ER if you experience any chest pain. Discharge Attestations Time Spent in Discharge Care*: greater than 30 min Quality Metrics Clinical Quality Measures [ No reported AMI, CVA or VTE this stay] Coding Level of Care Code 60033 Total time (in minutes) for Discharge: 45 Diagnoses Non-ST elevated myocardial infarction (non-STEMI) I21.4
[2023-01-08] MEDS: azithromycin 250 mg Tablet 500 MG PO (16:41)
== END 2023-01-08 17:05 | disposition home or self-care (01) | DRG 281 ==
LOC: ER 01-05 02:23 → CSU 01-05 02:55
PROVIDERS: Physician Assistant; Admitting Provider Student in an Organized Health Care Education/Training Program; Emergency Provider Emergency Medicine; PCP Family Medicine; Visit Provider Internal Medicine
DX: I21.4 Non-ST elevation (NSTEMI) myocardial infarction (principal); I50.32 Chronic diastolic (congestive) heart failure; J96.10 Chronic respiratory failure, unspecified whether with hypoxia or hypercapnia; I16.0 Hypertensive urgency; I11.0 Hypertensive heart disease with heart failure; Z87.891 Personal history of nicotine dependence; I25.119 Atherosclerotic heart disease of native coronary artery with unspecified angina pectoris; Z95.5 Presence of coronary angioplasty implant and graft; M32.13 Lung involvement in systemic lupus erythematosus; Z99.81 Dependence on supplemental oxygen; M79.7 Fibromyalgia; E78.5 Hyperlipidemia, unspecified; L30.4 Erythema intertrigo; D86.9 Sarcoidosis, unspecified; M81.0 Age-related osteoporosis without current pathological fracture; Z79.52 Long term (current) use of systemic steroids; E66.9 Obesity, unspecified; Z68.36 Body mass index [BMI] 36.0-36.9, adult; G47.33 Obstructive sleep apnea (adult) (pediatric); M10.9 Gout, unspecified; Z86.16 Personal history of COVID-19; I27.20 Pulmonary hypertension, unspecified; Z66 Do not resuscitate; J06.9 Acute upper respiratory infection, unspecified; B34.8 Other viral infections of unspecified site
CPT/HCPCS: 12345; 36415; 71045; 80048; 80053; 80061; 81001; 82607; 82746; 83036; 83540; 83550; 83735; 83880; 84100; 84145; 84443; 84484; 85025; 87070; 87205; 87486; 87581; 87633; 93005; 93306; 94664; 96372; 96374; 96376; 99285; A9270; C9113; J0456; J1650; J1940; J2405; J3490; J7050; J7512; Q0144

== ENCOUNTER 2023-01-12 08:18 | Inpatient (IN) | payer MEDICARE, OTHER, SELFPAY ==
[2023-01-12] VITALS (121 sets, daily range): BP systolic 81–165; BP diastolic 47–143; PULSE 68–109; RESP 13–35; TEMP 36.1–36.7; O2SAT 78–100
--- NOTE | 2023-01-12 08:31 | ECG_ITS ---
[facility] Test Date: 2023-01-12 Pat Name: Nanda Roe Department: Room: Gender: Female Trace Evidence Technician: : 1950 Requested By: Cuco Rod Order Number: [id number] Bryce MD: Kenya Vang M.D. Measurements Intervals [place] Rate: 93 P: 31 HI: 131 QRS: -12 QRSD: 98 T: 116 QT: 316 QTc: 395 Interpretive Statements SINUS RHYTHM MARKED ST DEPRESSION, Consider cardiac Ischemia Compared to ECG 01/05/2023 06:01:[address] (T wave) deviation now present Electronically Signed On 01-12-2023 13:38:41 WINDOW SHADE CUTTER by Kenya Vang M.D. [id number]
--- NOTE | 2023-01-12 08:35 | XRR_ITS ---
PROCEDURE INFORMATION: Exam: XR Chest Exam date and time: 01/12/2023 9:00 AM Age: 72 years old Clinical indication: Pain; Chest pressure; Additional info: Cxp TECHNIQUE: Imaging protocol: Radiologic exam of the chest. Views: 1 view. COMPARISON: CR XR chest 1V portable [id number] 01/07/2023 10:39 AM FINDINGS: Lungs: Unremarkable. No consolidation. Pleural spaces: Unremarkable. No pleural effusion. No pneumothorax. Heart/Mediastinum: There is a large hiatal hernia. Bones/joints: Unremarkable. XR/XR chest 1V portable [id number] IMPRESSION: Large hiatal hernia. Otherwise no evidence of acute pulmonary process.
--- NOTE | 2023-01-12 08:38 | W.ED.CHESTPA ---
HPI - Chest Pain General: Chief Complaint: Shortness of Breath/Dyspnea Stated Complaint: CHEST PAIN Time Seen by Provider: 01/12/23 08:30 History of Present Illness: 72-year-old female presents emergency department complaints of substernal chest pain onset shortness of breath since approximately 2 hours ago. She states she was seen 1 week ago in the emergency department and advised she was supposed to have a stent placed and was unable to due to a cold. She states at present she feels like there is a tight band around her chest she describes as a 8 out of 10. She does have associated nausea and increased work of breathing. Associated symptoms: Reports dyspnea and nausea Review of Systems General: Reports: 10 or more systems reviewed and unremarkable except in HPI and below Card: Reports: chest pain Resp: Reports: dyspnea GI: Reports: nausea PFSH ED PFSH: Medical History Acute kidney injury Chronic steroid use Fibromyalgia HTN (hypertension) Hyperlipidemia Intertrigo Rib fracture Seborrheic keratosis 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) Surgical History History of coronary artery stent placement x2 2014, x2 2019 at [facility] Social History Smoking and tobacco/nicotine status: former use of tobacco/nicotine Quit status (tobacco/nicotine): has quit using Year quit tobacco: 1987 [id number] Second hand smoke exposure: No Alcohol intake: never Substance/Drug Use: never Lives independently: Yes Household members: spouse and children Housing: House Marital status: Current occupational status: disabled Pets and animals: No Do you think of yourself as: Straight/Heterosexual Current gender identity: Female Physical Exam Narrative: EXAM NARRATIVE: Constitutional: the patient appears well nourished and with normal development. Vital signs reviewed as documented. Appears in acute distress HENMT: Normocephalic, atraumatic. Extermal ears with normal appearance without drainage. Nose without drainage, normal appearance. Mucus membranes moist. Neck is supple, No jugular venous distension, trachea is midline, no appreciable carotid bruits. No lymphadenopathy. No meningeal signs. Flexion, extension and lateral rotation is without pain. Eyes: Pupils are equal, round, reactive to light and accommodation. No scleral icterus. Extra-ocular movement are intact. Thorax is symmetrical and with equal rise and fall with respirations. Resp: Lungs are clear to auscultation. No wheezes, rales, crackles or ronchi at present. Cardio: Regular rate and rhythm. Positive S1, S2. No appreciable murmurs, rubs or gallops. GI: Abdominal exam reveals normal bowel sounds to all quadrants. No organomegaly. No obvious palpable masses noted. No hepatomegally appreciated. Soft, nontender to palpation. Extremity: Extremities are non-edematous and both femoral and pedal pulses are 2+ and equal bilaterally. Moves all extremities well, sensation in all extremities. Neuro: Alert and oriented x4, person, place, time and situation. Cranial nerves II through XII are grossly intact, there is no focal neurological deficits that I can appreciate at present. Motor strength in the upper and lower extremities are equal and bilateral 5/5. Psych: Cooperative, calm, normal thought process, appropriate judgment. Skin: No lesions, rashes. No gross abnormalities noted. Back: Symmetrical, no obvious deformity, No CVA tenderness Course Vital Signs: Vital signs: Vital Signs Temperature 98.1 F 01/12/23 08:28 Pulse Rate 92 01/12/23 08:38 Respiratory Rate 19 H 01/12/23 09:24 Blood Pressure 150/66 01/12/23 08:38 Pulse Oximetry 97 01/12/23 09:24 Oxygen Delivery Me thod Nasal Cannula 01/12/23 08:38 Oxygen Flow Rate 3 01/12/23 08:38 MDM - Chest Pain Medical Decision Making Physical exam completed and documented I will obtain a CBC CMP cardiac enzymes EKG and chest x-ray as well as provide cardiac dose aspirin heparin bolus and heparin drip as the patient does clearly demonstrate that she is having a non-ST elevated myocardial infarction Lab Data 01/12/23 08:00 01/12/23 08:00 Radiology Impressions Chest X-Ray 01/12/23 08:35 IMPRESSION: Large hiatal hernia. Otherwise no evidence of acute pulmonary process. Laboratory Results WBC 17.08 10^3/uL (3.29-11.43) H 01/12/23 08:00 RBC 3.19 10^6/uL (3.85-5.65) L 01/12/23 08:00 Hgb 9.90 g/dL (11.27-16.99) L 01/12/23 08:00 Hct 31.8 % (36-47) L 01/12/23 08:00 MCV 99.7 fl (85-98) H 01/12/23 08:00 MCH 31.0 pg (27-33) 01/12/23 08:00 MCHC 31.1 g/dL (30-55) 01/12/23 08:00 RDW 13.7 % (12.1-15.1) 01/12/23 08:00 Plt Count 250 10^3/cmm (157-399) 01/12/23 08:00 MPV 11.2 fL (7.4-10.4) H 01/12/23 08:00 Neut % (Auto) 86.4 % 01/12/23 08:00 Lymph % (Auto) 8.3 % 01/12/23 08:00 [place] % (Auto) 3.9 % 01/12/23 08:00 Eos % (Auto) 0.3 % 01/12/23 08:00 Baso % (Auto) 0.3 % 01/12/23 08:00 Neut # (Auto) 14.77 10^3/uL (1.8-7.7) H 01/12/23 08:00 Lymph # (Auto) 1.4 10^3/uL (0.8-4.8) 01/12/23 08:00 [place] # (Auto) 0.7 10^3/uL (0.2-0.9) 01/12/23 08:00 Eos # (Auto) 0.1 10^3/uL (0.0-0.8) 01/12/23 08:00 Baso # (Auto) 0.1 10^3/uL (0.0-0.1) 01/12/23 08:00 Nucleated RBC % (auto) 0 % 01/12/23 08:00 Nucleated RBCs # 0.0 /100WBC 01/12/23 08:00 PT 13.70 SECONDS (12.1-14.9) 01/12/23 08:00 INR 1.02 (0.8-1.2) 01/12/23 08:00 APTT 25.4 SECONDS (23.9-36.7) 01/12/23 08:00 Sodium 141 mmol/L (136-145) 01/12/23 08:00 Potassium 4.5 mmol/L (3.5-5.1) 01/12/23 08:00 Chloride 100 mmol/L (98-107) 01/12/23 08:00 Carbon Dioxide 32 mmol/L (22-29) H 01/12/23 08:00 Anion Gap 13.5 (5-19) 01/12/23 08:00 BUN 30 mg/dL (8-23) H 01/12/23 08:00 Creatinine 0.9 mg/dL (0.5-0.9) 01/12/23 08:00 GFR Calculation Not Reportable 01/12/23 08:00 Glucose 164 mg/dL (65-115) H 01/12/23 08:00 Calculated Osmolality 302 mOsm/kg (285-295) H 01/12/23 08:00 Calcium 8.9 mg/dL (8.5-10.5) 01/12/23 08:00 Total Bilirubin 0.8 mg/dL (0.15-1.2) 01/12/23 08:00 AST 32 U/L (0-32) 01/12/23 08:00 ALT 47 U/L (0-33) H 01/12/23 08:00 Alkaline Phosphatase 57 U/L (35-105) 01/12/23 08:00 Troponin T Baseline 34 ng/L (0-10) H 01/12/23 08:00 NT-Pro-B Natriuret Pep 3988 pg/mL (0-125) H 01/12/23 08:00 Total Protein 5.8 g/dL (6.6-8.7) L 01/12/23 08:00 Albumin 3.7 g/dL (3.5-5.2) 01/12/23 08:00 Globulin 2.1 g/dL (1.3-4.6) 01/12/23 08:00 All radiology interpretation(s) finalized by discharge Discharge Plan Discharge Patient Disposition: Admitted As Inpatient Clinical Impression: Acute non-ST elevation myocardial infarction (NSTEMI) Condition: Stable Coding Level of Care Code ED Lead Process Engineer for Guzman Haynes
[2023-01-12 08:56] LABS: Basophils # 0.1 10^3/uL (0.0-0.1); Basophils % 0.3 %; Eosinophils # 0.1 10^3/uL (0.0-0.8); Eosinophils % 0.3 %; Hematocrit 31.8 % (36-47); Lymphocytes # 1.4 10^3/uL (0.8-4.8); Lymphocytes % 8.3 %; Mean Corpuscular HGB Conc 31.1 g/dL (30-55); Mean Corpuscular Volume 99.7 fl (85-98); Mean Platelet Volume 11.2 fL (7.4-10.4); Monocytes # 0.7 10^3/uL (0.2-0.9); Monocytes % 3.9 %; Neutrophils # 14.77 10^3/uL (1.8-7.7); Neutrophils % 86.4 %; Nucleated Red Blood Cells % 0 %; Platelet Count 250 10^3/cmm (157-399); Red Blood Count 3.19 10^6/uL (3.85-5.65); Red Cell Distribution Width 13.7 % (12.1-15.1); White Blood Count 17.08 10^3/uL (3.29-11.43)
[2023-01-12] MEDS: heparin 5,000 unit/mL INJ 1 mL 4000 UNIT IVP (09:01)
[2023-01-12] MEDS: heparin drip 25,000 UNIT/500 ML PREMIX 18.96 UNIT IV (09:07)
--- NOTE | 2023-01-12 09:08 | PC.NURSE ---
Patient received 324 mg of asprin by EMS
[2023-01-12 09:14] LABS: INR 1.02 (0.8-1.2)
[2023-01-12 09:16] LABS: Partial Thromboplastin Time 25.4 SECONDS (23.9-36.7)
[2023-01-12 09:22] LABS: Troponin(5th) Baseline 34 ng/L (0-10)
[2023-01-12] MEDS: morphine 4 mg/mL SDV 1 mL 2 MG IVP (09:24)
[2023-01-12] MEDS: ondansetron 2 mg/ML SDV 2 mL 4 MG IVP (09:25)
[2023-01-12 09:30] LABS: Alanine Aminotransferase 47 U/L (0-33); Albumin Level 3.7 g/dL (3.5-5.2); Alkaline Phosphatase 57 U/L (35-105); Anion Gap 13.5 (5-19); Aspartate Amino Transferase 32 U/L (0-32); Blood Urea Nitrogen 30 mg/dL (8-23); Calcium 8.9 mg/dL (8.5-10.5); Carbon Dioxide 32 mmol/L (22-29); Chloride 100 mmol/L (98-107); Globulin 2.1 g/dL (1.3-4.6); Glucose 164 mg/dL (65-115); NT Pro B Type Natriuretic Pept 3988 pg/mL (0-125); Osmolality Calculated 302 mOsm/kg (285-295); Potassium 4.5 mmol/L (3.5-5.1); Sodium 141 mmol/L (136-145); Total Bilirubin 0.8 mg/dL (0.15-1.2); Total Protein 5.8 g/dL (6.6-8.7)
[2023-01-12] MEDS: nitroglycerin drip 50 MG/250 ML PREMIX IV (09:55)
--- NOTE | 2023-01-12 10:00 | P.HP_ITS ---
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 Patient unable to provide any history at this time due to being obtunded. It was reported to ER that she was short of breath about 2 hours ago along with substernal chest pain. She was recently discharged on 08 January after being diagnosed with parainfluenza. She was admitted for an NSTEMI at that visit and was supposed to have an angiogram done however because she could not lay flat and due to her cough the procedure was deferred as per recommendation from cardiology. Patient also declined to have an angiogram done due to her cough and she said that she cannot lay flat. Shared decision-making was done with the patient and she was sent home to follow-up as an outpatient for potential angiogram. Today she presents with shortness of breath and chest pain. Baseline troponin 34, BNP 3988, WBC 17, hemoglobin 9.9, platelet 250. Patient's states that she has not been wearing her BiPAP for the last 3 days secondary to her cough. She is chronically on oxygen at home. In the ER patient was noted to have ST depressions on EKG. Heparin drip was started, nitroglycerin drip was started. Apparently patient was awake alert oriented talking in the ER but upon arrival to ICU she was found to be obtunded and unresponsive. She did not lose pulse. Unable to obtain a blood pressure initially. Nitro drip was turned off. She was placed on a nonrebreather and escalated up to AVAPS. Blood gas was obtained which showed pH 7.1, CO2 89. RN and respiratory therapy at bedside. Patient unable to answer questions. I had a discussion with family and stated that if she does not improve on AVAPS we might have to intubate her. has concerns that he was told in the past that if she was ever intubated she might not able to get extubated. Respiratory viral panel has been ordered, MRSA swab has been ordered. Blood pressure stable. Unable to obtain review of systems from patient. Above history was obtained from , ER chart, nursing staff. I did stay at bedside and went back and saw the patient and at this point she was able to respond to her name and opening her eyes but falling back asleep. Medications/Allergies Home Medications Medication Instructions Recorded Confirmed Last Taken Type aspirin 81 mg tablet,delayed 81 mg PO QAM 05/04/21 01/12/23 01/11/23 History release (Adult Low Dose Aspirin) evolocumab 140 mg/mL subcutaneous 140 mg SUBCUT Q14D 10/29/22 01/12/23 12/31/22 History syringe (Repatha Syringe) metoprolol tartrate 25 mg tablet 25 mg PO BID #180 tabs 10/29/22 01/12/23 1 03/13/22 Rx prednisone 1 mg tablet See Rx Instructions .Route .COMPLEX 10/29/22 01/12/23 01/11/23 History coenzyme Q10 100 mg capsule 100 mg PO DAILY 01/05/23 01/12/23 01/11/23 History (CoQ-10) dorzolamide 22.3 mg-timolol 6.8 See Rx Instructions .Route .COMPLEX 01/05/23 01/12/23 Unknown History mg/mL eye drops furosemide 20 mg tablet 20 mg PO QAM 01/05/23 01/12/23 01/11/23 History magnesium oxide 400 mg PO DAILY 01/05/23 01/12/23 01/11/23 History potassium chloride 10 mEq 10 meq PO EVERY OTHER DAY 01/05/23 01/12/23 Unknown History tablet,extended release (Klor-Con) prednisolone acetate 1 % eye See Rx Instructions .Route .COMPLEX 01/05/23 01/12/23 Unknown History drops,suspension azithromycin 500 mg tablet 500 mg PO DAILY 5 days #5 tabs 01/08/23 01/12/23 01/11/23 Rx (Zithromax) isosorbide dinitrate 20 mg tablet 20 mg PO BID #30 tabs 01/08/23 01/12/23 01/12/23 Rx ticagrelor 90 mg tablet (Brilinta) 90 mg PO BID #60 tabs 01/08/23 01/12/23 Rx Allergies Allergy/AdvReac Type Severity Reaction Status Date / Time amlodipine Allergy leg Verified 01/01/23 15:04 swelling azathioprine [From Imuran] Allergy Unknown Verified 01/01/23 15:04 ciprofloxacin Allergy Unknown Verified 01/01/23 15:04 clindamycin Allergy Unknown Verified 01/01/23 15:04 clonidine Allergy lungs and Verified 01/01/23 15:04 skin clopidogrel [From Plavix] Allergy stopped Verified 01/01/23 15:04 producing white blood cells hydrochlorothiazide Allergy Unknown Verified 01/01/23 15:04 [From Avalide] iodine Allergy ALGY-Rash Verified 01/06/23 14:28 irbesartan [From Avalide] Allergy Unknown Verified 01/01/23 15:04 lisinopril Allergy Unknown Verified 01/01/23 15:04 methotrexate Allergy Unknown Verified 01/01/23 15:04 nebivolol [From Bystolic] Allergy ALGY-Rash Verified 01/01/23 15:04 oxycodone Allergy Unknown Verified 01/01/23 15:04 Penicillins Allergy extreme Verified 01/01/23 15:04 swelling spironolactone Allergy ADR-Abdominal Verified 01/01/23 15:04 Pain Sulfa (Sulfonamide Allergy Unknown Verified 01/01/23 15:04 Antibiotics) valsartan [From Diovan] Allergy Unknown Verified 01/01/23 15:04 diclofenac [From Voltaren] AdvReac Intermediate ADR/ALGY-Pa Verified 01/01/23 15:04 lpitations ticagrelor [From Brilinta] AdvReac Unknown Verified 01/01/23 15:04 PFSH Acute PFSH: Medical History Acute kidney injury Chronic steroid use Fibromyalgia HTN (hypertension) Hyperlipidemia Intertrigo Rib fracture Seborrheic keratosis 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) Surgical History History of coronary artery stent placement x2 2014, x2 2019 at [facility] Social History Smoking and tobacco/nicotine status: former use of tobacco/nicotine Quit status (tobacco/nicotine): has quit using Year quit tobacco: 1987 [id number] Second hand smoke exposure: No Alcohol intake: never Substance/Drug Use: never Lives independently: Yes Household members: spouse and children Housing: House Marital status: Current occupational status: disabled Pets and animals: No Do you think of yourself as: Straight/Heterosexual Current gender identity: Female Vitals/I&O/Wt Last Vital Signs Temp 98.1 F 01/12/23 08:28 Pulse 92 01/12/23 08:38 Resp 19 H 01/12/23 09:24 BP 150/66 01/12/23 08:38 Pulse Ox 97 01/12/23 09:24 O2 Del Method Nasal Cannula 01/12/23 08:38 O2 Flow Rate 3 01/12/23 08:38 Physical Exam Narrative: Patient obtunded, unable to answer questions Currently on AVAPS, tripoding Lungs bilateral rhonchi appreciated, decreased bilateral air entry Abdomen soft, does not grimace to palpation 1-2+ edema bilateral lower extremities. Data 01/12/23 08:00 01/12/23 08:00 A&P Assessment and plan (1) Acute non-ST elevation myocardial infarction (NSTEMI): (2) Pulmonary hypertension: (3) Chronic steroid use: (4) SLE (systemic lupus erythematosus related syndrome): (5) Hyperlipidemia: Qualifiers: Hyperlipidemia type: unspecified Qualified Code(s): E78.5 - Hyperlipidemia, unspecified (6) HTN (hypertension): (7) Diastolic heart failure: Qualifiers: Heart failure chronicity: chronic Qualified Code(s): I50.32 - Chronic diastolic (congestive) heart failure (8) Oxygen dependent: (9) CAD (coronary artery disease): Qualifiers: Coronary Disease-Associated Artery/Lesion type: unspecified vessel or lesion type [place] vs. transplanted heart: ruby heart Associated angina: with unspecified angina Qualified Code(s): I25.119 - Atherosclerotic heart disease of ruby coronary artery with unspecified angina pectoris (10) Respiratory failure: (11) CO2 narcosis: (12) Obtunded: (13) Parainfluenza infection: (14) ST segment depression: Plan #Acute hypoxic hypercarbic respiratory failure, CO2 narcosis #Chronic hypoxic respiratory failure on oxygen at home #Parainfluenza infection #Hypertension #Chronic steroid use #Pulmonary hypertension #Hyperlipidemia #Acute on chronic diastolic heart failure #History of coronary artery disease #Chest pain, NSTEMI #Pulmonary hypertension ? Patient is in CO2 narcosis. Continue on AVAPS. Repeat blood gas in 30 minutes shows improvement. ? Patient is at risk of intubation if she does not improve. Discussed this with the family. ? Keep nitro drip off. ? Continue heparin drip as per NSTEMI protocol ? Cardiology consulted and on board ? Check respiratory viral panel ? We will check D-dimer ? Check CT chest abdomen pelvis without contrast ? Check MRSA nares swab ? Check urine culture ? Reddy to be placed for accurate input output ? Cover with vancomycin and aztreonam empirically. Patient has allergies to penicillin. ? Continue aspirin, Brilinta ? Continue Isordil, Lopressor as blood pressure permits. ? We will repeat a blood gas at 4 PM. ? Check CBC, CMP, magnesium in a.m. ? Check echo - Solumedrol 40 q12H -Hold home steroids. ? DuoNeb every 6 hours as needed ? Flutter valve, Lasix 40 IV x 1 Full code VTE prophylaxis: On SCDs and heparin drip at this time Diet: N.p.o. Patient was seen several times through the morning, discussed with RN,, ER doctor, Respiratory therapist, cardiology Attestations Medical Necessity Statement*: Requires inpatient ICU stay for management of hypercarbic respiratory failure, NSTEMI. Coding Level of Care Code Critical Care >/= 30 minutes Critical care time (in minutes): 60 The high probability of a clinically significant, sudden or life threatening deterioration, as referenced in this documentation, required my full and direct attention, intervention and personal management. The critical care time shown is in addition to time spent performing any reported separately billable procedures and includes the following: [x] Data and vital sign review and interpretation [x ] Patient assessment, examination and intervention [x] Medication orders and management [x] Patient/Family updates as able [x] Care Coordination and Documentation. Diagnoses Acute non-ST elevation myocardial infarction (NSTEMI) I21.4 Pulmonary hypertension I27.20 Chronic steroid use SLE (systemic lupus erythematosus related syndrome) M32.9 Hyperlipidemia E78.5 Hyperlipidemia type: unspecified HTN (hypertension) I10 Diastolic heart failure I50.32 Heart failure chronicity: chronic Oxygen dependent Z99.81 CAD (coronary artery disease) I25.119 Coronary Disease-Associated Artery/Lesion type: unspecified vessel or lesion type [place] vs. transplanted heart: ruby heart Associated angina: with unspecified angina Respiratory failure J96.90 CO2 narcosis R06.89 Obtunded R40.[address] segment depression R94.31
--- NOTE | 2023-01-12 10:27 | ECG_ITS ---
[facility] Test Date: 2023-01-12 Pat Name: Nanda Roe Department: Room: ICU10 Gender: Female Sole Rounder: : 1950 Requested By: Cuco Rod Order Number: [id number] Bryce MD: Kenya Vang M.D. Measurements Intervals [place] Rate: 105 P: 9 CT: 121 QRS: -21 QRSD: 113 T: 134 QT: 325 QTc: 431 Interpretive Statements SINUS TACHYCARDIA Marked ST changes consistent with myocardial ischemia Compared to ECG 01/05/2023 No significant change Electronically Signed On 01-12-2023 13:51:54 BOARD TURNER by Kenya Vang M.D. [email or web address] [email or web address] medical [id number]
[2023-01-12 10:28] LABS: Troponin 5 2HR 42.43 ng/L (0-10)
[2023-01-12 10:31] LABS: Troponin 5 2HR Delta 8.43 ABS# (0-10)
[2023-01-12 11:11] LABS: Procalcitonin 0.26 ng/mL (0-0.5)
[2023-01-12 11:11] LABS: ABG PCO2 89.2 mmHg (35-45); ABG PH Result 7.12 (7.35-7.45); Alveolar-Arterial Oxygen Gradi 50.6 mmHg (5-10); Arterial Blood Gas Hematocrit 31.4 % (37-47); Base Excess ABG -1.9 mmol/L (-2.0-2.0); Blood Gas Allen Test Pos; Blood Gas Operator Identificat MONRO; Blood Gas Sample Site Radial, left; Blood Gas Sample Type Arterial; Blood Gas Tidal Volume 0.35; Carboxyhemoglobin 0.8 %THgb (0.4-20.1); HCO3 ABG 28.9 mmol/L (22-26); HGB O2 Sat 97.4 % (95-100); Ionized Calcium Level - ABG 1.2 mmol/L (1.1-1.4); Methemoglobin 0.6 % (0.4-1.5); Oxygen Device BIPAP; Oxygen Saturation ABG 98.7; PO2 FiO2 Ratio Arterial Blood 0; Total Hemoglobin 10.2 g/dL (12-16)
[2023-01-12 12:09] LABS: ABG PH Result 7.28 (7.35-7.45); Alveolar-Arterial Oxygen Gradi 19.1 mmHg (5-10); Arterial Blood Gas Hematocrit 29.9 % (37-47); Base Excess ABG 2.2 mmol/L (-2.0-2.0); Blood Gas Operator Identificat AMH; Blood Gas Sample Site Brachial, right; Blood Gas Sample Type Arterial; HGB O2 Sat 87.6 % (95-100); Ionized Calcium Level - ABG 1.2 mmol/L (1.1-1.4); Methemoglobin 0.4 % (0.4-1.5); Oxygen Device BIPAP; Oxygen Saturation ABG 88.8; PO2 ABG 61.3 mmHg (80.0-100.0); PO2 FiO2 Ratio Arterial Blood 0; Potassium Level - ABG 4.4 mmol/L (3.5-5.0); Total Hemoglobin 9.8 g/dL (12-16)
--- NOTE | 2023-01-12 12:14 | PC.NURSE ---
REceived patient form ER staff at approximately 1045. Patient is unresponsive. O2 saturation is 79% on 3L NC. Automatic cuff cannot read blood pressure, nurse is unable to obtain a manual blood pressure. Pulse is thready, barely palpable. Nurse stopped Nitroglycerin drip, Requested respiratory to come to bedside to set up Bipap and placed on 15L nonrebreather while waiting on respiratory therapist. Nurse alerted Dr Tirado to condition and she came to bedside. Ordered ABG which shows CO2 of 90, ordered to keep bipap on at avaps setting, lower tidal volume due to shrinking lung syndrome. After about 15 minutes on bipap patient was able to answer questions though she is very lethargic. Viral panel and mrsa ordered. Reddy started.
[2023-01-12 13:54] LABS: Adenovirus Not Detected (NOT DETECT); Chlamydia Pneumoniae Not Detected (NOT DETECT); Coronavirus 229E,HKU1,NL63,OC4 Not Detected (NOT DETECT); Human Metapneumovirus Not Detected (NOT DETECT); Human Rhinovirus/Enterovirus Not Detected (NOT DETECT); Influenza A Not Detected (NOT DETECT); Influenza A H1 Not Detected (NOT DETECT); Influenza A H1-2009 Not Detected (NOT DETECT); Influenza A H3 Not Detected (NOT DETECT); Influenza B Not Detected (NOT DETECT); Mycoplasma Pneumoniae Not Detected (NOT DETECT); Parainfluenza Virus Type 1 Not Detected (NOT DETECT); Parainfluenza Virus Type 2 Not Detected (NOT DETECT); Parainfluenza Virus Type 3 Not Detected (NOT DETECT); Parainfluenza Virus Type 4 Detected (NOT DETECT); Respiratory Syncytial Virus A Not Detected (NOT DETECT); Respiratory Syncytial Virus B Not Detected (NOT DETECT); SARS-COV-2 Not Detected (NOT DETECT)
[2023-01-12 14:01] LABS: Add Urine Microscopic? YES; Bilirubin Urine Neg (Negative); Blood Urine 3+ (Negative); Glucose Urine UA Norm (Normal); Ketones Urine 1+ (Negative); Leukocyte Esterase Urine Negative (Negative); Nitrate Urine Negative (Negative); Protein Urine 1+ (Negative); Urine Appearance Clear (CLEAR); Urine Color Yellow (Yellow); Urobilinogen Urine Norm (Negative); pH Urine 6.5 (5-7)
[2023-01-12 14:02] LABS: Add Urine Culture? Yes; Bacteria Urine TRACE /hpf; Mucus Urine TRACE /hpf; Squamous Epithelial Cell Urine 0-4 /hpf (0-5); WBC Urine 0-4 /hpf (0-5)
--- NOTE | 2023-01-12 14:28 | CTR_ITS ---
PROCEDURE INFORMATION: Exam: CT Chest Without Contrast; Diagnostic Exam date and time: 01/12/2023 4:22 PM Age: 72 years old Clinical indication: Abdominal tenderness; Shortness of breath; Additional info: Resp failure TECHNIQUE: Imaging protocol: Diagnostic computed tomography of the chest without contrast. Radiation optimization: All CT scans at this facility use at least one of these dose optimization techniques: automated exposure control; mA and/or kV adjustment per patient size (includes targeted exams where dose is matched to clinical indication); or iterative reconstruction. REPORTING DATA: Count of CT and Cardiac NM exams in prior 12 months: This patient has received 0 known CTs and 0 known cardiac nuclear medicine studies in the 12 months prior to the current study. COMPARISON: CR (CHEST, ) 01/12/2023 9:00 AM RADIATION DOSE METRICS: Total DLP (mGy-cm): 887.61 FINDINGS: Lungs: There are atelectatic changes at the lung bases. Bilateral pulmonary ground-glass opacities. There are pulmonary parenchymal calcifications consistent with remote granulomatous organism exposure. Pleural spaces: Unremarkable. No pneumothorax. No pleural effusion. Heart: Mild cardiomegaly. Lymph nodes: There are calcified mediastinal and perihilar lymph nodes consistent with prior granulomatous exposure. Vasculature: Unremarkable. No aortic aneurysm. Bones/joints: Generalized osteopenia. There are multiple chronic appearing thoracic compression fractures and chronic appearing rib fractures. No definite acute fracture visualized. Prominent thoracic kyphosis. Soft tissues: Unremarkable. PROCEDURE INFORMATION: Exam: CT Abdomen And Pelvis Without Contrast Exam date and time: 01/12/2023 4:22 PM Age: 72 years old Clinical indication: Abdominal tenderness; Shortness of breath; Additional info: Resp failure TECHNIQUE: Imaging protocol: Computed tomography of the abdomen and pelvis without contrast. Radiation optimization: All CT scans at this facility use at least one of these dose optimization techniques: automated exposure control; mA and/or kV adjustment per patient size (includes targeted exams where dose is matched to clinical indication); or iterative reconstruction. REPORTING DATA: Count of CT and Cardiac NM exams in prior 12 months: This patient has received 0 known CTs and 0 known cardiac nuclear medicine studies in the 12 months prior to the current study. COMPARISON: CT abdomen wo con [id number] 01/04/2021 1:31 PM RADIATION DOSE METRICS: Total DLP (mGy-cm): 887.61 FINDINGS: Coronary arteries: Multivessel atherosclerotic disease which involves the coronary arteries. Liver: Normal. No mass. Gallbladder and bile ducts: The gallbladder has been removed. Pancreas: Multiple pancreatic cystic lesions cannot be further characterized without IV contrast. Spleen: Normal. No splenomegaly. Adrenal glands: Normal. No mass. Kidneys and ureters: Nonobstructing right renal calculus. Stomach and bowel: Unremarkable. No obstruction. No mucosal thickening. Appendix: No evidence of appendicitis. Intraperitoneal space: Unremarkable. No free air. No significant fluid collection. Vasculature: Unremarkable. No abdominal aortic aneurysm. Lymph nodes: Unremarkable. No enlarged lymph nodes. Urinary bladder: There is a Reddy catheter and air in the bladder. Reproductive: Unremarkable as visualized. Bones/joints: Generalized osteopenia. There are multiple chronic appearing thoracic and lumbar compression fractures. There is mild retropulsion of the L5 superior endplate. Broad-based disc osteophyte complexes are present at the L4-L5 and L5-S1 levels contributing to bilateral foraminal narrowing. Left total hip replacement with resultant artifact obscuring adjacent structures. There are degenerative changes across the right hip joint. Soft tissues: There are benign-appearing soft tissue calcifications. CT/[place] [id number] IMPRESSION: 1. Mild cardiomegaly. 2. Bilateral pulmonary ground-glass opacities are nonspecific and can be seen with pulmonary edema and/or pneumonia. 3. Multivessel atherosclerotic disease which involves the coronary arteries. 4. Generalized osteopenia with associated chronic appearing rib fractures and thoracic compression fractures. IMPRESSION: 1. Generalized osteopenia. There are multiple chronic appearing thoracic and lumbar compression fractures. 2. Broad-based disc osteophyte complexes are present at the L4-L5 and L5-S1 levels contributing to bilateral foraminal narrowing. 3. Multiple pancreatic cystic lesions cannot be further characterized without IV contrast.
--- NOTE | 2023-01-12 14:35 | ECG_ITS ---
[facility] Test Date: 2023-01-12 Pat Name: Nanda Roe Department: Room: ICU10 Gender: Female Operations Superintendent: : 1950 Requested By: Cuco Rod Order Number: [id number] Bryce MD: Kenya Vang M.D. Measurements Intervals [place] Rate: 80 P: 0 KS: 147 QRS: 8 QRSD: 89 T: 72 QT: 388 QTc: 448 Interpretive Statements SINUS RHYTHM WITH OCCASIONAL SUPRAVENTRICULAR PREMATURE COMPLEXES ST & T-WAVE ABNORMALITY suggestive of myocardial ischemia Compared to ECG 01/12/2023 10:27:18 Sinus tachycardia no longer present Electronically Signed On 01-13-2023 9:19:46 LAMINATOR PREFORMS by Kenya Vang M.D. [id number]
[2023-01-12 14:49] LABS: Troponin 5 6HR Delta 116.1 ng/L (0-12)
[2023-01-12 14:50] LABS: Troponin 5 6HR 150.1 ng/L (0-10)
--- NOTE | 2023-01-12 15:22 | P.CONIM_ITS ---
Providers/Reason For Consult Consulting Physician/Specialty*: Cardiology Reason for Consult*: NSTEMI Requesting Physician: Dr. Tirado Attending Physician: Amrita Tirado MD Primary Care Provider: Alcon Ogden MD History of Present Illness History of Present Illness Nanda Roe is a 72 year old female, who was recently discharged from the hospital with the respiratory illness, readmitted with recurrent chest pain in the setting of severe hypoxia and type II respiratory failure. Patient recently had a respiratory viral illness and during that admission a cardiac angiogram was planned because of an abnormal stress test however with ongoing respiratory illness and patient's inability to lay flat for the procedure the coronary angiogram procedure was canceled and plan for outpatient. However patient started having intermittent chest pain this morning. Further history from the family revealed patient was not using her BiPAP for last 2 days and this led to increasing shortness of air and more drowsiness. On admission patient was severely hypoxic, acidotic with elevated CO2. EKG showed marked ST depression consistent with marked cardiac ischemia in the setting of overall underlying severe type II respiratory failure. Currently she is being managed in the ICU with the BiPAP and her clinical condition has improved she is more alert now and currently denies any further chest pain her blood pressure was low and therefore the nitro IV drip was discontinued. Her vitals are more stable and repeat ABG showed significant improvement of acidosis, however overall she remains critically sick. Review of Systems Narrative: Difficult to obtain detailed clinical history from the patient due to her current illness. After talking to her and her daughter it appears her respiratory status continued to worsen at home since discharge. And she also stopped using BiPAP which worsened her overall clinical status. Medications/Allergies Home Medications Medication Instructions Recorded Confirmed Last Taken Type aspirin 81 mg tablet,delayed 81 mg PO QAM 05/04/21 01/12/23 01/11/23 History release (Adult Low Dose Aspirin) evolocumab 140 mg/mL subcutaneous 140 mg SUBCUT Q14D 10/29/22 01/12/23 12/31/22 History syringe (Repatha Syringe) metoprolol tartrate 25 mg tablet 25 mg PO BID #180 tabs 10/29/22 01/12/23 01/11/23 Rx prednisone 1 mg tablet See Rx Instructions .Route .COMPLEX 10/29/22 01/12/23 01/11/23 History coenzyme Q10 100 mg capsule 100 mg PO DAILY 01/05/23 01/12/23 01/11/23 History (CoQ-10) dorzolamide 22.3 mg-timolol 6.8 See Rx Instructions .Route .COMPLEX 01/05/23 01/12/23 Unknown History mg/mL eye drops furosemide 20 mg tablet 20 mg PO QAM 01/05/23 01/12/23 01/11/23 History magnesium oxide 400 mg PO DAILY 01/05/23 01/12/23 01/11/23 History potassium chloride 10 mEq 10 meq PO EVERY OTHER DAY 01/05/23 01/12/23 Unknown History tablet,extended release (Klor-Con) prednisolone acetate 1 % eye See Rx Instructions .Route .COMPLEX 01/05/23 01/12/23 Unknown History drops,suspension azithromycin 500 mg tablet 500 mg PO DAILY 5 days #5 tabs 01/08/23 01/12/23 01/11/23 Rx (Zithromax) isosorbide dinitrate 20 mg tablet 20 mg PO BID #30 tabs 01/08/23 01/12/23 01/12/23 Rx ticagrelor 90 mg tablet (Brilinta) 90 mg PO BID #60 tabs 01/08/23 01/12/23 01/11/23 Rx Allergies Allergy/AdvReac Type Severity Reaction Status Date / Time amlodipine Allergy leg Verified 01/01/23 15:04 swelling azathioprine [From Imuran] Allergy Unknown Verified 01/01/23 15:04 ciprofloxacin Allergy Unknown Verified 01/01/23 15:04 clindamycin Allergy Unknown Verified 01/01/23 15:04 clonidine Allergy lungs and Verified 01/01/23 15:04 skin clopidogrel [From Plavix] Allergy stopped Verified 01/01/23 15:04 producing white blood cells hydrochlorothiazide Allergy Unknown Verified 01/01/23 15:04 [From Avalide] iodine Allergy ALGY-Rash Verified 01/06/23 14:28 irbesartan [From Avalide] Allergy Unknown Verified 01/01/23 15:04 lisinopril Allergy Unknown Verified 01/01/23 15:04 methotrexate Allergy Unknown Verified 01/01/23 15:04 nebivolol [From Bystolic] Allergy ALGY-Rash Verified 01/01/23 15:04 oxycodone Allergy Unknown Verified 01/01/23 15:04 Penicillins Allergy extreme Verified 01/01/23 15:04 swelling spironolactone Allergy ADR-Abdominal Verified 01/01/23 15:04 Pain Sulfa (Sulfonamide Allergy Unknown Verified 01/01/23 15:04 Antibiotics) valsartan [From Diovan] Allergy Unknown Verified 01/01/23 15:04 diclofenac [From Voltaren] AdvReac Intermediate ADR/ALGY-Pa Verified 01/01/23 15:04 lpitations ticagrelor [From Brilinta] AdvReac Unknown Verified 01/01/23 15:04 Current Medications Generic Name Dose Route Start Last Admin Trade Name Freq PRN Reason Stop Dose Admin Heparin Sodium/Sodium Chloride 25,000 unit in 500 mls @ 18.956 mls/hr 01/12/23 08:45 01/12/23 09:07 Heparin Drip IV 14 unit/kg/hr .Q24H DEE 18.96 mls/hr Administration 14 UNIT/KG/HR Nitroglycerin/Dextrose 50 mg in 250 mls @ 0 mls/hr 01/12/23 09:15 01/12/23 09:55 Nitroglycerin Drip IV 10 mcg/min .Q0M DEE 3 mls/hr Administration Protocol Per Protocol PFSH Acute PFSH: Medical History Acute kidney injury Chronic steroid use Fibromyalgia HTN (hypertension) Hyperlipidemia Intertrigo Rib fracture Seborrheic keratosis 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) Surgical History History of coronary artery stent placement x2 2013, x2 2019 at [facility] Social History Smoking and tobacco/nicotine status: former use of tobacco/nicotine Quit status (tobacco/nicotine): has quit using Year quit tobacco: 1987 [id number] Second hand smoke exposure: No Alcohol intake: never Substance/Drug Use: never Lives independently: Yes Household members: spouse and children Housing: House Marital status: Current occupational status: disabled Pets and animals: No Do you think of yourself as: Straight/Heterosexual Current gender identity: Female Vitals/I&O/Wt Last Vital Signs Temp 98.1 F 01/12/23 08:28 Pulse 77 11/26/23 14:48 Resp 19 H 01/12/23 09:24 BP 150/66 01/12/23 08:38 Pulse Ox 100 01/12/23 14:48 O2 Del Method Nasal Cannula 01/12/23 08:38 O2 Flow Rate 3 01/12/23 08:38 FiO2 35 01/12/23 14:48 Physical Exam Narrative: Patient now arousable on verbal command. On BiPAP her O2 saturation 91% Vitals reveal blood pressure 132/70, pulse 90/min regular Difficult to assess HEENT, eyes and any possible JVD. Lungs auscultation revealed decreased air entry with bilateral rales Cardiac exam: Tachycardia with the normal first and second heart sounds. Mild systolic murmur. Abdomen: Soft nontender. Bowel sounds positive. Lower extremities: Trace bilateral lower extremity edema Skin: Warm and dry Neuro: Difficult to assess due to her current status however she moves all 4 limbs and now responding to verbal commands. Data 01/12/23 08:00 01/12/23 08:00 A&P Assessment and plan (1) Acute non-ST elevation myocardial infarction (NSTEMI): (2) ST segment depression: (3) Respiratory failure: Plan 72-year-old female patient with known long history of underlying COPD, readmitted with chest pain/marked ST changes (NSTEMI) in the setting of severe type II respiratory failure. Clinically no active heart failure symptoms overall she is euvolemic. Plan: Patient is currently being treated appropriately for her severe respiratory fail ure, and I agree with the plan Regarding NSTEMI, to continue IV heparin and if blood pressure allows to restart IV nitro. Will introduce low-dose of beta-helen once blood pressure is better We will plan for cardiac cath once respiratory status is more stable. I explained to the and her daughter regarding her critical condition including respiratory failure and NSTEMI. Thanks for asking me to see this patient in consultation Coding Level of Care Code Acute Code for [facility] Diagnoses Acute non-ST elevation myocardial infarction (NSTEMI) I21.4 ST segment depression R94.31 Respiratory failure J96.90 Time Spent (min) 45
[2023-01-12] MEDS: vancomycin 750 MG in sodium chloride 0.9% 250 ML 250 MG IV (15:59)
[2023-01-12] MEDS: methylPREDNISolone sod succ 40 mg/mL INJ IVP (15:59)
[2023-01-12] MEDS: FUROsemide 10 mg/mL SDV 4mL 40 MG IVP (15:59)
[2023-01-12] MEDS: aztreonam 1,000 MG in sodium chloride 0.9% (plus) 50 ML 100 MG IV (16:02)
[2023-01-12 16:43] LABS: Partial Thromboplastin Time 99.1 SECONDS (23.9-36.7)
[2023-01-12] MEDS: ticagrelor 90 mg Tablet PO (17:38)
[2023-01-12] MEDS: heparin drip 25,000 UNIT/500 ML PREMIX 14.5 UNIT IV (17:47)
--- NOTE | 2023-01-12 18:57 | PC.NURSE ---
Shift Summary: after initially being stabilized upon arrival (see previous note), it has been an uneventful shift. Patient has become more alert and responsive throughout the day on bipap. Currently alert and able to correctly answer person, place, time, and situation questions.
[2023-01-12 19:45] LABS: Basophils % 0.2 %; Hematocrit 31.8 % (36-47); Lymphocytes # 0.5 10^3/uL (0.8-4.8); Lymphocytes % 2.6 %; Mean Corpuscular HGB Conc 30.8 g/dL (30-55); Mean Corpuscular Hemoglobin 30.3 pg (27-33); Mean Corpuscular Volume 98.5 fl (85-98); Mean Platelet Volume 11.1 fL (7.4-10.4); Monocytes # 0.3 10^3/uL (0.2-0.9); Monocytes % 1.5 %; Neutrophils # 16.64 10^3/uL (1.8-7.7); Neutrophils % 94.8 %; Nucleated Red Blood Cells % 0 %; Platelet Count 201 10^3/cmm (157-399); Red Blood Count 3.23 10^6/uL (3.85-5.65); White Blood Count 17.55 10^3/uL (3.29-11.43)
[2023-01-12 22:39] LABS: Partial Thromboplastin Time 76.7 SECONDS (23.9-36.7)
[2023-01-13] VITALS (24 sets, daily range): BP systolic 96–121; BP diastolic 50–71; PULSE 77–112; RESP 15–35; TEMP 36.3–36.6; O2SAT 92–98
[2023-01-13] MEDS: aztreonam 1,000 MG in sodium chloride 0.9% (plus) 50 ML 100 MG IV ×2 (02:01→14:50)
[2023-01-13] MEDS: methylPREDNISolone sod succ 40 mg/mL INJ IVP ×2 (02:01→14:48)
[2023-01-13] MEDS: morphine 4 mg/mL SDV 1 mL 2 MG IVP ×3 (03:13→14:47)
--- NOTE | 2023-01-13 03:15 | PC.NURSE ---
Patient reports chest pain to middle and right side of chest a 5 out of 10 on 0-[address] Lozano of patients chest pain and that NTG drip had to be discontinued earlier in the day related to very low blood pressure. Order given for morphine 2mg IVP and if patient does not have relief of chest pain start NTG drip at low dose and titrate as patient's blood pressure tolerates.
[2023-01-13] MEDS: nitroglycerin drip 50 MG/250 ML PREMIX IV (03:30)
--- NOTE | 2023-01-13 03:32 | PC.NURSE ---
continues to have chest pain 4-5 out of 10 on 0-10 pain scale. Blood pressure 112/60. NTG drip started at 5mcg/min.
--- NOTE | 2023-01-13 03:41 | PC.NURSE ---
pain 2 on 0-10 pain scale. B/P 111/64. NTG currently infusing at 5mcg/min. Will continue to monitor.
--- NOTE | 2023-01-13 04:01 | PC.NURSE ---
Reports chest pain 2-3 on 0 to 10 pain scale. B/P 118/71. Increased NTG drip to 10mcg/min.
--- NOTE | 2023-01-13 04:43 | PC.NURSE ---
Patient reports chest pain 5-6 on 0 to 10 pain scale. Blood pressure 117/77. Increased NTG drip to 15mcg/min.
--- NOTE | 2023-01-13 04:55 | PC.NURSE ---
Reports continued chest pain with no decrease since NTG increased. Increased NTG to 20mcg/min. Blood pressure 116/69.
[2023-01-13] MEDS: aspirin 81 mg EC Tablet PO (05:34)
[2023-01-13 05:37] LABS: Basophils % 0.1 %; Hematocrit 30.9 % (36-47); Lymphocytes # 0.5 10^3/uL (0.8-4.8); Lymphocytes % 2.8 %; Mean Corpuscular HGB Conc 30.7 g/dL (30-55); Mean Corpuscular Hemoglobin 30.4 pg (27-33); Mean Corpuscular Volume 98.7 fl (85-98); Mean Platelet Volume 11.3 fL (7.4-10.4); Monocytes # 0.2 10^3/uL (0.2-0.9); Monocytes % 1.3 %; Neutrophils % 94.8 %; Nucleated Red Blood Cells % 0 %; Platelet Count 243 10^3/cmm (157-399); Red Blood Count 3.13 10^6/uL (3.85-5.65); Red Cell Distribution Width 14.2 % (12.1-15.1); White Blood Count 16.37 10^3/uL (3.29-11.43)
--- NOTE | 2023-01-13 06:04 | PC.NURSE ---
NTG increased to 25mcg/min, B/P 120/58. Patient reports continued chest pain 7 out of 10 on 0 to 10 pain scale. Heart rate 108. Notified Dr. Jade. Order given for 2mg morphine IVP now.
[2023-01-13 06:09] LABS: Partial Thromboplastin Time 53.3 SECONDS (23.9-36.7)
[2023-01-13] MEDS: heparin 5,000 unit/mL INJ 1 mL IV (06:14)
[2023-01-13 06:22] LABS: Alanine Aminotransferase 57 U/L (0-33); Albumin Level 3.5 g/dL (3.5-5.2); Alkaline Phosphatase 53 U/L (35-105); Aspartate Amino Transferase 114 U/L (0-32); Blood Urea Nitrogen 35 mg/dL (8-23); Calcium 8.6 mg/dL (8.5-10.5); Carbon Dioxide 25 mmol/L (22-29); Chloride 98 mmol/L (98-107); Globulin 2.8 g/dL (1.3-4.6); Glucose 88 mg/dL (65-115); Magnesium 2.3 mg/dL (1.7-2.3); Osmolality Calculated 299 mOsm/kg (285-295); Sodium 141 mmol/L (136-145); Total Bilirubin 0.6 mg/dL (0.15-1.2); Total Protein 6.3 g/dL (6.6-8.7)
--- NOTE | 2023-01-13 06:22 | PC.NURSE ---
Dr. Jade called nurses station and notified nurse that he had talked with the proposal coordinator software security consultant and notified him of her continued chest pain. Dr. Jade reports that cardiology agrees with giving her another dose of morphine and lower nitro if possible because of patients low blood pressure. Morphine 2mg given IVP and Nitro lowered to 20mcg/min. B/P 106/60 and heart rate 105.
[2023-01-13] MEDS: metoprolol tartrate 25 mg Tablet PO (08:21)
[2023-01-13] MEDS: pantoprazole DR 40 mg Tablet PO (08:21)
[2023-01-13] MEDS: ipratropium-albuterol 3 mL Neb INHALATION ×2 (08:34→15:25)
--- NOTE | 2023-01-13 09:43 | P.PN_ITS ---
Subjective Subjective: Overnight patient is clinically more stable, her saturation has improved and respiratory status has certainly improved during last 24 hours. Early this morning she again had an episode of chest pain with ongoing the depression on the EKG. Currently right now patient is on IV nitro and IV hepari n for ACS and is also being aggressively managed for respiratory failure/lower respiratory tract infection. Currently patient is chest pain-free and she feels more comfortable. I reviewed her medications and lab data. Medications: Medication Review Details: Medicines are reviewed and adjusted as per ACS. Vitals/I&O/Wt Last Vital Signs Temp 97.8 F 01/13/23 08:36 Pulse 105 H 01/13/23 08:48 Resp 23 H 01/13/23 08:39 BP 121/65 01/13/23 08:00 Pulse Ox 96 01/13/23 08:43 O2 Del Method BiPAP 01/13/23 08:39 O2 Flow Rate 30 01/13/23 00:00 FiO2 30 01/13/23 08:43 01/12/23 01/13/23 01/13/23 22:59 06:59 14:59 Intake Total 590.723 / 593.223 153.175 / 746.398 0 / 0 Output Total 250 / 250 350 / 600 Balance 340.723 / 343.223 -196.825 / 146.398 0 / 0 Weight last 48 hrs Weight 160 lb 4.8 oz Weight 167 lb Physical Exam Narrative: Patient laying comfortably on the bed with head and raise at 45 degrees. Patient wears BiPAP. She is awake and respond to verbal command. Vitals: Blood pressure 118/72 pulse 96/min regular O2 saturation 95% on BiPAP HEENT exam: Unremarkable, patient is on BiPAP now JVD difficult to assess Lungs: Good air entry with mild rales at the bases and few rales at the right mid zone. Cardiovascular: Tachycardia with regular rhythm. Normal first and second heart sound. Abdomen: Soft and nontender. Lower extremities: 1+ pedal edema. Skin: Warm and dry. Urinary Catheter Management: Reddy: Cath Placed During This Visit: yes Reason for Continuing Indwelling Catheter: Accurate Measurement of Urinary Output in Critically Ill Patients Urinary Catheter Date of Insertion: 01/12/23 Urinary Catheter Time of Insertion: 15:28 Data 01/13/23 05:05 01/13/23 05:05 Micro: Microbiology 01/12/23 13:25 Urine Culture - Preliminary Urine,Clean Catch A&P Assessment and plan (1) Acute non-ST elevation myocardial infarction (NSTEMI): (2) Respiratory failure: Plan 72-year-old female with NSTEMI in the setting of acute type II respiratory failure and little lower respiratory tract infection. Clinical status overall has improved during last 24 hours with active management of respiratory failure. However she is still having intermittent angina pain. Currently no active heart failure symptoms. Considering the ongoing intermittent angina pain at rest with ST changes, I recommend a cardiac catheterization, however her overall current clinical status with significant comorbidities will put her into a somewhat high risk for any possible angioplasty procedure. I discussed about our plan of angiogram and possible angioplasty with her . He understands her current condition very well and also aware of her previous cardiac history when 3 years ago she was suggestive to have coronary artery bypass surgery however the surgery was declined due to her underlying significant respiratory pathology(COPD). Therefore if he is asking if we can manage her medically for now and consider cardiac cath procedure once she is more stable. Additionally I understand of talking to her , patient has to sign some of her personal documents before she actually would like to undergo this procedure So the final plan is to continue to monitor her cardiovascular status and plan to do angiogram when she is bit more stable, however her has also indicated to go ahead with the heart cath procedure in case she is having recurrent ongoing anginal pain with the hemodynamic instability. Attestations Medical Necessity Statement*: Acute NSTEMI, Respiratory failure Coding Level of Care Code Acute Code for [facility] Diagnoses Acute non-ST elevation myocardial infarction (NSTEMI) I21.4 Respiratory failure J96.90 Time Spent (min) 45
[2023-01-13] MEDS: ticagrelor 90 mg Tablet PO (10:03)
[2023-01-13 10:40] LABS: Methicillin-Resist S.aureu PCR NOT DETECTED (NOT DETECTED)
--- NOTE | 2023-01-13 11:05 | PC.NURSE ---
Dr. Vang in room explaining cath procedure to patient and , explains he would like to take the patient today due to risks and benefits. Patient's request waiting another day. Dr. Vang again explained risks of procedure and risks of not doing the procedure. Will continue to monitor at this time.
--- NOTE | 2023-01-13 11:12 | PC.SOCIAL ---
IMM Update Pg. 2 of IMM updated and reviewed with patient, who verbalized understanding. Copy provided.
--- NOTE | 2023-01-13 11:34 | PM.PN ---
Subjective Subjective: refused angiogram today stating he needs more time to think about it. Medications: Reviewed: Yes Medication Review Details: Medicines are reviewed and adjusted as per ACS. Vitals/I&O/Wt Last Vital Signs Temp 97.8 F 01/13/23 08:36 Pulse 83 01/13/23 10:27 Resp 23 H 01/13/23 08:39 BP 121/65 01/13/23 08:00 Pulse Ox 94 01/13/23 10:27 O2 Del Method BiPAP 01/13/23 08:39 O2 Flow Rate 30 01/13/23 00:00 FiO2 30 01/13/23 10:27 01/12/23 01/13/23 01/13/23 22:59 06:59 14:59 Intake Total 590.723 / 593.223 153.175 / 746.398 37.875 / 37.875 Output Total 250 / 250 350 / 600 Balance 340.723 / 343.223 -196.825 / 146.398 37.875 / 37.875 Weight last 48 hrs Weight 72.711 kg Weight 75.75 kg Physical Exam Narrative: General: No acute distress, AO x3 HEENT: PERRLA, pupils bilaterally equal and reactive, pallors not present Chest: Normal vesicular breath sounds, no added sounds, equal good air entry bilaterally CVS: S1-S2 regular, no murmurs, no tachycardia, no gallops, no rubs Abdomen: Soft, nontender, no organomegaly, bowel sounds present Neuro: No focal deficits, no facial deformity, AO x3, power 5/5 in all limbs Urinary Catheter Management: Reddy: Cath Placed During This Visit: yes Reason for Continuing Indwelling Catheter: Accurate Measurement of Urinary Output in Critically Ill Patients Urinary Catheter Date of Insertion: 01/12/23 Urinary Catheter Time of Insertion: 15:28 Data 01/13/23 05:05 01/13/23 05:05 Micro: Microbiology 01/12/23 13:25 Urine Culture - Preliminary Urine,Clean Catch A&P Assessment and plan (1) Acute non-ST elevation myocardial infarction (NSTEMI): (2) Pulmonary hypertension: (3) Chronic steroid use: (4) SLE (systemic lupus erythematosus related syndrome): (5) Hyperlipidemia: Qualifiers: Hyperlipidemia type: unspecified Qualified Code(s): E78.5 - Hyperlipidemia, unspecified (6) HTN (hypertension): (7) Diastolic heart failure: Qualifiers: Heart failure chronicity: chronic Qualified Code(s): I50.32 - Chronic diastolic (congestive) heart failure (8) Oxygen dependent: (9) CAD (coronary artery disease): Qualifiers: Coronary Disease-Associated Artery/Lesion type: unspecified vessel or lesion type [place] vs. transplanted heart: [place] heart Associated angina: with unspecified angina Qualified Code(s): I25.119 - Atherosclerotic heart disease of [place] coronary artery with unspecified angina pectoris (10) Respiratory failure: (11) CO2 narcosis: (12) Obtunded: (13) Parainfluenza infection: (14) ST segment depression: Plan #Acute hypoxic hypercarbic respiratory failure, CO2 narcosis #Chronic hypoxic respiratory failure on oxygen at home #Parainfluenza infection #Hypertension #Chronic steroid use #Pulmonary hypertension #Hyperlipidemia #Acute on chronic diastolic heart failure #History of coronary artery disease #Chest pain, NSTEMI #Pulmonary hypertension ? Patient is in CO2 narcosis. Continue on AVAPS. Repeat blood gas improving ? Patient is at risk of intubation ? Continue heparin drip as per NSTEMI protocol ? Cardiology consulted , appreciate recs, patient wants to defer angiogram for now, may need to reconsider ? CT chest B/L GGOs lkely consistent with viral pneumonia ? Cover with vancomycin and aztreonam empirically. ? Continue aspirin, Brilinta ? Check echo, pending - Solumedrol 40 q12H ? DuoNeb every 6 hours schdeuled ? Flutter valve, Full code VTE prophylaxis: On SCDs and heparin drip at this time Diet: N.p.o. Plan for today:continue iv abx, optimize respiratory status, angiogram when optimized Attestations Medical Necessity Statement*: continue to optimize respiratory status while pending angiogram Coding Level of Care Code Acute Code for [facility] Diagnoses Acute non-ST elevation myocardial infarction (NSTEMI) I21.4 Pulmonary hypertension I27.20 Chronic steroid use SLE (systemic lupus erythematosus related syndrome) M32.9 Hyperlipidemia E78.5 Hyperlipidemia type: unspecified HTN (hypertension) I10 Diastolic heart failure I50.32 Heart failure chronicity: chronic Oxygen dependent Z99.81 CAD (coronary artery disease) I25.119 Coronary Disease-Associated Artery/Lesion type: unspecified vessel or lesion type [place] vs. transplanted heart: [place] heart Associated angina: with unspecified angina Respiratory failure J96.90 CO2 narcosis R06.89 Obtunded R40.[address] segment depression R94.31
[2023-01-13 12:52] LABS: Partial Thromboplastin Time 69.1 SECONDS (23.9-36.7)
--- NOTE | 2023-01-13 12:55 | PC.NURSE ---
Heparin drip, no change per PTT
[2023-01-13] MEDS: prednisoLONE 1% Op Susp 5 mL Btl EYE-BOTH (13:09)
--- NOTE | 2023-01-13 15:40 | PC.NURSE ---
chest pain Patient complaining of chest pain. Dr. Vang and Dr. Dudley both called and ordered 2 [address]P Morph[address] Q6H. Dr. Vang to round on the patient again.
[2023-01-13] MEDS: ondansetron 2 mg/ML SDV 2 mL 4 MG IVP (16:02)
[2023-01-13] MEDS: norepinephrine 4 MG/250 ML BAG 7.5 MG IV (16:02)
[2023-01-13 16:22] LABS: Glucose Point of Care 142 mg/dL (70-110)
--- NOTE | 2023-01-13 16:30 | ANES.PROC ---
Anesthesia Procedures Procedure/Date: 01/13/23 Intubation: Time Out Performed: Yes Consent: requested by attending/covering physician, from other, risks and benefits reviewed and emergency procedure Sedative (amount): etomidate (10 mg) Paralytic (amount): succinylcholine (40 mg) Laryngoscope: fiber optic video scope (glidescope) ET Tube Size: 7.5 ET Tube Uncuffed: No Tube Secured Depth (cm): 19 Tube Secured Location: teeth Tube Placement Confirmation: visualized tube passing through cords, equal breath sounds bilaterally, no breath sounds over epigastrium, confirmation by capnometry and color change noted Patient Tolerated Procedure: other (bradycardia resulting in code) Additional Comments: Called to ICU 10 to help intubate a chronic lung disease patient whose family is requesting intubation after having almost coded upon removal of her BIPAP. Discussed patient's poor prognosis and poor likelihood of extubation post-intubation and cardiac cath to . understood patient's condition and wished to proceed with intubation and to progress to technical laboratory asst afterwards for possible intervention. Patient was give etomidate 10 mg and succinylcholine 40 mg IV and intubated successfully. This was followed by a prodrome of worsening bradycardia, and no pulse was palpated by bedside nursing staff. CPR and code blue was called at this time.
--- NOTE | 2023-01-13 16:41 | P.DES_ITS ---
Discharge Providers DDS Date of Admission: 01/12/23 10:00 Date Summary Completed: 01/14/23 Attending Provider at Admission: Amrita Tirado MD Time of : 16:23 Attending Provider at Discharge: Brenna Dudley MD Primary Care Provider: Alcon Ogden MD DS Diagnoses Hospital Diagnoses (1) Acute non-ST elevation myocardial infarction (NSTEMI): (2) Pulmonary hypertension: (3) Chronic steroid use: (4) SLE (systemic lupus erythematosus related syndrome): (5) Hyperlipidemia: Qualifiers: Hyperlipidemia type: unspecified Qualified Code(s): E78.5 - Hyperlipidemia, unspecified (6) HTN (hypertension): (7) Diastolic heart failure: Qualifiers: Heart failure chronicity: chronic Qualified Code(s): I50.32 - Chronic diastolic (congestive) heart failure (8) Oxygen dependent: (9) CAD (coronary artery disease): Qualifiers: Associated angina: with unspecified angina Coronary Disease-Associated Artery/Lesion type: unspecified vessel or lesion type [place] vs. 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 She was diagnosed with NSTEMI and parainfluenza pneumonia. She had recently been discharged after having been admitted for the same condition on 01/08. She was supposed to have an angiogram done however because she could not lay flat and due to her cough the procedure was deferred as per recommendation from cardiology.? Patient also declined to have an angiogram done due to her cough and she said that she cannot lay flat.? Shared decision-making was done with the patient on this past admission and she was discharged to follow-up as an outpatient for potential angiogram.?She returned on 01/12 with recurring and persistent chest pain. Further history from the family revealed patient was not using her BiPAP for last 2 days and this led to increasing shortness of breath and somnolence. On admission patient was severely hypoxic and hypercapneic. . EKG showed marked ST depression consistent with marked cardiac ischemia. She was started on treatment with Bipap ventilation following which she was stabilized by the morning with regards to her respiratory status. She was started on heparin gtt and nitro infusion and received medical management for ACS, however continued to have persisting chest pain through 01/13. Considering the ongoing chest pain at rest with ST changes, she was recommended cardiac catheterization, and there were multiple discussions between the cardiology team and patient's regrading the same throughout the day. This afternoon at around 4 pm ,patient's clinical status started to deteriorate, she complained of chest pain, nausea, became bradycardic and then unresponsive. She was intubated by anesthesia, shortly afterwards her pulse was no longer palpable and code blue was called. ACS protocol was initiated. SHe received chest compressions, ventilation via ETT, epinephrine x 3 and amiodarone 300mg push iv x 1. She received total CPR time of 9-10 minutes without success. Her was updated and did not want us to continue further resuscitative measures. States that patient would not have wanted prolonged resuscitation measures given her multiple comorbidities and guarded prognosis. Patient was declared at 16:23 on 01/13/23. Additional Data Confirmation of as documented by pronouncing clinician: no pulse, no respirations, no heart sounds and pupils fixed and dilated Family: at bedside Additional persons at bedside: nursing staff Attending/PCP notified?: I am attending Was code activated?: Yes Autopsy requested?: No Advance directives?: No Discharge Plan Discharge Patient Disposition: Condition: Stable Prescriptions: No Action prednisone 1 mg tablet See Rx Instructions .ROUTE .COMPLEX Rx Instructions: 6mg po qam and 2mg po in the pm (takes doses 12 hours apart) metoprolol tartrate 25 mg tablet 25 mg PO BID Qty: 180 2RF Repatha Syringe 140 mg/mL syringe 140 mg SUBCUT Q14D Rx Instructions: due to get 01/14/23 aspirin [Adult Low Dose Aspirin] 81 mg tablet,delayed release (DR/EC) 81 mg PO QAM furosemide 20 mg tablet 20 mg PO QAM prednisolone acetate 1 % drops,suspension See Rx Instructions .ROUTE .COMPLEX Rx Instructions: INSTILL 1-2 DROPS INTO LEFT EYE EVERY 4 HOURS NEEDED FOR PAIN DIRECTED dorzolamide-timolol 22.3-6.8 mg/mL drops See Rx Instructions .ROUTE .COMPLEX Rx Instructions: use as directed as needed coenzyme Q10 [CoQ-10] 100 mg Capsule 100 mg PO DAILY magnesium oxide 400 mg magnesium Tablet 400 mg PO DAILY potassium chloride [Klor-Con 10] 10 mEq tablet extended release 10 meq PO EVERY OTHER DAY isosorbide dinitrate 20 mg Tablet 20 mg PO BID Qty: 30 0RF Brilinta 90 mg Tablet 90 mg PO BID Qty: 60 0RF Discharge Orders: Discharge Order (Routine); Ordered 01/14/23 Ordered By: Brenna Dudley Referrals: Alcon Ogden MD [Primary Care Provider] - DS Attestations Time Spent in /Discharge Care*: critical care time Critical Care Time (min): 60 Quality - AMI: AMI present?: Yes Quality - Stroke: CVA present?: No Quality - VTE: VTE present?: No Coding Level of Care Code Critical Care >/= 30 minutes Diagnoses Acute non-ST elevation myocardial infarction (NSTEMI) I21.4 Pulmonary hypertension I27.20 Chronic steroid use SLE (systemic lupus erythematosus related syndrome) M32.9 Hyperlipidemia E78.5 Hyperlipidemia type: unspecified HTN (hypertension) I10 Diastolic heart failure I50.32 Heart failure chronicity: chronic Oxygen dependent Z99.81 CAD (coronary artery disease) I25.119 Associated angina: with unspecified angina Coronary Disease-Associated Artery/Lesion type: unspecified vessel or lesion type [place] vs. transplanted heart: [place] heart Respiratory failure J96.90 CO2 narcosis R06.89 Obtunded R40.[address] segment depression R94.31 Time Spent (min) 60
--- NOTE | 2023-01-13 17:47 | PC.NURSE ---
MTS/saving sight released patient.
--- NOTE | 2023-01-13 17:48 | PC.NURSE ---
wishes for patient to be sent to [facility] in [place], [place].
--- NOTE | 2023-01-13 17:50 | PC.NURSE ---
Approximately 1600 patient complains of nausea and states she is going to throw up. Patient sat up on side of bed, Bipap removed and placed on 4 LNC, patient given Zofran. Patient states, I'm going to . Patient then complaining of inability to breathe, but saturations maintaining. Patient had episode of bradycardia. Patient then denies nausea feeling and request BiPap to be placed back on and for her to be sat up in the bed. This was done. Dr. Vang called to room. Dr. Dudley in unit. Both doctors talking to patient's about going for Cath procedure but patient's not making a decision. Doctors also talking to patient's about code status and doesn't answer the doctors. Patient remains full code and is intubated for possible cardiac cath and due to declining status. Patient placed on Levo drip due to hypotension, being on nitro drip, and still complaining of chest pain. Patient again became nohelia after intubation and was given Atropine push. Patient then went pulseless and CODE blue was called. Both doctors in room for code. See code sheet.
--- NOTE | 2023-01-13 18:47 | PC.NURSE ---
Post mortem care provided. [facility] called for body transfer.
== END 2023-01-13 20:00 | disposition expired ==
LOC: ER 10:21 → ICU 10:22
PROVIDERS: Admitting Provider Internal Medicine; Emergency Provider Internal Medicine; PCP Family Medicine; Visit Provider Student in an Organized Health Care Education/Training Program
DX: I21.4 Non-ST elevation (NSTEMI) myocardial infarction (principal); I50.33 Acute on chronic diastolic (congestive) heart failure; J96.21 Acute and chronic respiratory failure with hypoxia; J96.02 Acute respiratory failure with hypercapnia; M79.7 Fibromyalgia; I11.0 Hypertensive heart disease with heart failure; E78.5 Hyperlipidemia, unspecified; M32.9 Systemic lupus erythematosus, unspecified; I25.119 Atherosclerotic heart disease of native coronary artery with unspecified angina pectoris; Z95.5 Presence of coronary angioplasty implant and graft; Z87.891 Personal history of nicotine dependence; Z79.52 Long term (current) use of systemic steroids; D86.9 Sarcoidosis, unspecified; Z99.81 Dependence on supplemental oxygen; G47.33 Obstructive sleep apnea (adult) (pediatric); M10.9 Gout, unspecified; I27.20 Pulmonary hypertension, unspecified; R00.1 Bradycardia, unspecified; B34.8 Other viral infections of unspecified site; J22 Unspecified acute lower respiratory infection; M81.0 Age-related osteoporosis without current pathological fracture
CPT/HCPCS: 12345; 36415; 36416; 36600; 51702; 71045; 71250; 74176; 80051; 80053; 81001; 82330; 82805; 82962; 83735; 83880; 84145; 84484; 85025; 85610; 85730; 87086; 87486; 87581; 87633; 87641; 93005; 93010; 94640; 94660; 94664; 96365; 96366; 96367; 96375; 96376; 99285; J0171; J0282; J0330; J0461; J1644; J1940; J2270; J2405; J2920; J3370; J3490; J7050